=== PATIENT | male | born 1945 | race Caucasian/White ===

== ENCOUNTER 2017-10-25 03:22 | Inpatient (IN) ==
[2017-10-25] MEDS ORDERED: Ondansetron 4 MG/2 ML VIAL IVP PRN (05:30)
[2017-10-25] MEDS: *HR* Morphine 2 MG/ML SYRINGE IVP PRN ×3 (06:03→14:33)
[2017-10-25] MEDS: Gabapentin 300 MG CAPSULE PO SCH ×2 (08:06→21:24)
--- NOTE | 2017-10-25 08:45 | General Surg History&Physical ---
<Zora Ram - Last Filed: 10/25/17 09:44> Date of Encounter: 10/25/17 Time of Encounter: 08:00 Assessment and Plan (1) Abdominal pain Current Visit: Yes Status: Acute Possible acute cholecystitis. Patient is a transfer from [facility] for possible cholecystitis. CT abdomen /pelvis showed no acute abdominal process. WBC 13.5. Patient reports epigastric and RUQ pain. No nausea or vomiting. Abdominal exam demonstrated soft, tender epigastric and RUQ, no guarding or rebound. Appears distended but patient stated his abdomen is unchanged. afebrile, tachycardic, normotensive INR 2.6 The assessment and plan as outlined above was discussed with the patient who expressed understanding and agreement. All questions were answered. abdominal ultrasound ordered. May order HIDA scan depending on results of U/S. morphine for pain relief liquid diet serial abdominal exams IVF zofran Qualifiers: Abdominal location: right upper quadrant Qualified Code(s): R10.11 - Right upper quadrant pain (2) A-fib Current Visit: Yes Status: Acute Patient has a history of A. fib on anticoagulation with warfarin and rate control with Betapace. His financial brokers is Dr. Arteaga. Tachycardic HR 130s, hemodynamically stable INR 2.6, PT 28.3 Patient may possibly need cholecystectomy in future pending ultrasound results. Significant cardiac history hence consult to cardiology. Consulted cardiology. Recommendations appreciated. Warfarin stopped monitor INR continue Betapace Qualifiers: Atrial fibrillation type: chronic Qualified Code(s): I48.2 - Chronic atrial fibrillation History of Present Illness Chief complaint: epigastric and RUQ pain HPI: Mr. Aguilar is a 72 year old male with a past medical history of DM and A.fib on anticoagulation with warfarin presented to [facility] complaining of abdominal pain. He was then transferred to [facility] with concerns of cholecystitis. He reported that the pain began 11 PM while watching TV. It was sudden in onset and sharp. It radiates from epigastric to right upper quadrant. It is a constant dull pain. He tried to get a warm bath to help but nothing really the pain. He has never had this before and does not associate eating greasy foods with ever having pain. Earlier for dinner he had a [employer] big boy hamburger. He has no past surgical history. He denies fever, chills, nausea, vomiting, diarrhea, melanoma, chest pain, shortness of breath. He will occasionally have a glass of scotch. 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 His financial brokers is Dr. Arteaga. CT abdomen/pelvis and [facility] showed no acute abdominal process. Labs are [facility] showed white blood cell count of 13.5, PT 28.3 INR 2.6. Past Med Surg Social Fam HX - Past Medical History Medical history: atrial fibrillation, cardiomyopathy, diabetes, fibromyalgia, valvular heart disease Psychiatric history: no psych history - Past Surgical History Surgical History: no surgical history - Social History Smoking Status: Former smoker Smokeless Tobacco Status: No Alcohol use: none, occasionally Drug use: none Occupational status: employed Activity Level: Independent ambulation - Family History Mother Living Status: Hx Family Cancer: Yes (Lung cancer) Brother Hx Family Cancer: Yes (prostate) Medications and Allergies Gabapentin [Neurontin] 300 mg PO QAM 02/26/16 [History] Gabapentin [Neurontin] 600 mg PO HS 02/26/16 [History] Levothyroxine [Synthroid] 75 mcg PO DAILY 02/26/16 [History] Sotalol [Betapace] 160 mg PO Q12HR 02/26/16 [History] Tamsulosin [Flomax] 0.4 mg PO DAILY 02/26/16 [History] Warfarin [Coumadin] 11 mg PO DAILY 02/26/16 [History] metFORMIN [Glucophage] 500 mg PO BIDWM 02/26/16 [History] 3 Allergy/AdvReac Type Severity Reaction Status Date / Time diazepam AdvReac Nausea Verified 10/24/17 23:43 Review of Systems All systems PM: A 10-system review of systems was performed and is negative for pertinent findings except as documented above in the HPI. - Constitutional no chills, no fever(s), no headache(s) - Cardiovascular no chest pain, no diaphoresis - Respiratory no cough, no dyspnea, no wheezing - Gastrointestinal abdominal pain, no bloating, no diarrhea, no hematemesis, no melena, no nausea, no vomiting General Surgery Exam Initial Vital Signs Temp Pulse Resp BP Pulse Ox 97.9 F 111 14 133/86 90 10/25/17 05:16 10/25/17 05:16 10/25/17 05:16 10/25/17 05:16 10/25/17 05:16 - General physical appearance well developed, well nourished, no distress. negative: jaundice - Eyes normal ocular movement. negative: icteric - Respiratory normal expansion, normal respiratory effort, clear to auscultation - Cardiovascular Cardiovascular exam: Present: tachycardia, irregular rhythm - Abdomen Abdomen general surgery: Present: bowel sounds present, soft, tender. Absent: guarding, rebound Abdominal Tenderness: Present: epigastic, RUQ - Neurologic Present: CN 2-12 grossly intact, normal coordination - Psychiatric Psychiatric general surgery: Present: A&Ox3 Results - Labs All other labs normal. <Veronica Elena - Last Filed: 10/25/17 16:40> Date of Encounter: 10/25/17 Assessment and Plan (1) A-fib Current Visit: Yes Status: Chronic The assessment and plan as outlined above was discussed with the patient and/or family members who expressed understanding and agreement. All questions were answered. Qualifiers: Atrial fibrillation type: chronic Qualified Code(s): I48.2 - Chronic atrial fibrillation (2) Abdominal pain Current Visit: Yes Status: Acute The assessment and plan as outlined above was discussed with the patient and/or family members who expressed understanding and agreement. All questions were answered prn pain control Qualifiers: Abdominal location: right upper quadrant Qualified Code(s): R10.11 - Right upper quadrant pain (3) Chronic anticoagulation Current Visit: Yes Status: Chronic The assessment and plan as outlined above was discussed with the patient and/or family members who expressed understanding and agreement. All questions were answered. holding coumadin for surgery saturday (4) NICM (nonischemic cardiomyopathy) Current Visit: Yes Status: Chronic The assessment and plan as outlined above was discussed with the patient and/or family members who expressed understanding and agreement. All questions were answered. (5) Symptomatic cholelithiasis Current Visit: Yes Status: Acute The assessment and plan as outlined above was discussed with the patient and/or family members who expressed understanding and agreement. All questions were answered. discussed with patient that his symptoms, imaging and labs point to symptomatic cholelithiasis - will plan surgery when INR reversed, prefer to let trend down if able as is easier to reanticoagulate if no vitamin K given will plan laparoscopic cholecystectomy, possible cholangiograms, possible open, risks and benefits discussed with patient and he wishes to proceed. patient with symptomatic cholelithiasis, continue abx trend labs, elevated lft serial abdominal exams holding coumadin, monitor inr epcd, gi prophylaxis ambulate/OOB (6) Leukocytosis Current Visit: Yes Status: Acute The assessment and plan as outlined above was discussed with the patient and/or family members who expressed understanding and agreement. All questions were answered. continue abx, trend wbc Qualifiers: Leukocytosis type: unspecified Qualified Code(s): D72.829 - Elevated white blood cell count, unspecified History of Present Illness HPI: Mr. Aguilar is a 72 year old male who started having RUQ pain he states last night after eating cheeseburger and salad at [employer]. The pain was sharp and radiated around his back and up into his chest. He denies nausea or emesis. He denies diarrhea. He has never had this before. Denies fevers,chills or night sweats. He presented to outside hospital and they were unable to control his pain. Patient is on coumadin for Afib and INR is 2.7. WBC wnl as are lfts. Past Med Surg Social Fam HX - Past Medical History Source: patient Review of Systems All systems PM: reviewed and no additional remarkable complaints except as stated All systems PM: A 10-system review of systems was performed and is negative for pertinent findings except as documented above in the HPI. General Surgery Exam Initial Vital Signs Temp Pulse Resp BP Pulse Ox 97.9 F 111 14 133/86 90 10/25/17 05:16 10/25/17 05:16 10/25/17 05:16 10/25/17 05:16 10/25/17 05:16 - General physical appearance well developed, well nourished, moderate distress - Eyes PERRL, normal ocular movement - ENT normal mucosa, normocephalic - Neck trachea midline - Respiratory normal expansion, normal respiratory effort - Cardiovascular Cardiovascular exam: Present: irregular rhythm - Abdomen Abdomen general surgery: Present: soft, tender. Absent: distended, guarding, rebound Abdominal Tenderness: Present: RUQ - Integumentary Integumentary general surgery: Present: warm and dry, no abnormal pigmentation - Neurologic Present: CN 2-12 grossly intact - Musculoskeletal Present: normal posture - Psychiatric Psychiatric general surgery: Present: A&Ox3 Results - Labs 10/25/17 10:05 10/25/17 10:05 Abnormal lab results WBC 15.9 K/mcL (4.3-11.1) H 10/25/17 10:05 Neutrophils # 13.2 K/mcL (1.6-8.9) H 10/25/17 10:05 PT 29.5 Seconds (9.4-12.1) H 10/25/17 10:05 Glucose 131 mg/dL (70-105) H 10/25/17 10:05 Diabetes panel 10/25/17 Range/Units 10:05 Sodium 136 (136-145) mEq/L Potassium 4.5 (3.5-5.1) mEq/L Chloride 103 (98-107) mEq/L Carbon Dioxide 28 (23-29) mEq/L BUN 14 (8-23) mg/dL Creatinine 0.96 (0.70-1.30) mg/dL Glucose 131 H (70-105) mg/dL Calcium 8.9 (8.6-10.3) mg/dL AST 21 (13-39) Units/L ALT 17 (7-52) Units/L Alkaline Phosphatase 60 (34-104) Units/L Albumin 3.6 (3.5-5.7) g/dL Calcium panel 10/25/17 Range/Units 10:05 Calcium 8.9 (8.6-10.3) mg/dL Albumin 3.6 (3.5-5.7) g/dL Pituitary panel 10/25/17 Range/Units 10:05 Sodium 136 (136-145) mEq/L Potassium 4.5 (3.5-5.1) mEq/L Chloride 103 (98-107) mEq/L Carbon Dioxide 28 (23-29) mEq/L BUN 14 (8-23) mg/dL Creatinine 0.96 (0.70-1.30) mg/dL Glucose 131 H (70-105) mg/dL Calcium 8.9 (8.6-10.3) mg/dL Adrenal panel 10/25/17 Range/Units 10:05 Sodium 136 (136-145) mEq/L Potassium 4.5 (3.5-5.1) mEq/L Chloride 103 (98-107) mEq/L Carbon Dioxide 28 (23-29) mEq/L BUN 14 (8-23) mg/dL Creatinine 0.96 (0.70-1.30) mg/dL Glucose 131 H (70-105) mg/dL Calcium 8.9 (8.6-10.3) mg/dL Total Bilirubin 0.5 (0.3-1.0) mg/dL AST 21 (13-39) Units/L ALT 17 (7-52) Units/L Alkaline Phosphatase 60 (34-104) Units/L Albumin 3.6 (3.5-5.7) g/dL All other labs normal. - Imaging Additional studies: US gallbladder - cholelithiasis, no signs acute cholecystitis - Attending Attestation I examined this patient and my medical decision-making was reviewed with the Resident Physician. I agree with the documented findings, disposition and treatment plan as described except to the extent set forth below.
[2017-10-25] MEDS ORDERED: Naloxone 0.4 MG/ML INJ IVP PRN (09:02)
[2017-10-25] MEDS ORDERED: 0.9 % Sodium Chloride 1,000 ML IVC SCH (09:15)
[2017-10-25 10:27] LABS: Basophils % 0.2 %; Eosinophils % 0.2 %; Hematocrit 44.8 % (37.5-50.1); Hemoglobin 14.6 g/dL (12.9-16.9); INR 2.7; Immature Granulocytes % 0.4 % (0-4); Lymphocytes # 1.4 K/mcL (0.6-4.6); Mean Corpuscular HGB Conc 32.6 g/dL (31.6-35.5); Mean Corpuscular Hemoglobin 28.7 pg (28.0-33.3); Mean Platelet Volume 9.8 fL (9.4-12.4); Monocytes # 1.1 K/mcL (0.0-1.3); Monocytes % 7.1 %; Neutrophils # 13.2 K/mcL (1.6-8.9); Platelet Count 383 K/mcL (140-400); Prothrombin Time 29.5 Seconds (9.4-12.1); Red Blood Count 5.09 M/mcL (4.19-5.50); Red Cell Distribution Width 12.9 % (11.5-14.5); Segmented Neutrophils % 83.1 %
[2017-10-25 10:37] LABS: Alanine Aminotransferase 17 Units/L (7-52); Albumin 3.6 g/dL (3.5-5.7); Albumin/Globulin Ratio 1.2 (1.1-2.2); Alkaline Phosphatase 60 Units/L (34-104); Aspartate Amino Transferase 21 Units/L (13-39); BUN/Creatinine Ratio 15 (6-26); Bilirubin,Direct 0.1 mg/dL (0.0-0.2); Bilirubin,Indirect 0.4 mg/dL (0.0-1.2); Bilirubin,Total 0.5 mg/dL (0.3-1.0); Blood Urea Nitrogen 14 mg/dL (8-23); Calcium 8.9 mg/dL (8.6-10.3); Carbon Dioxide 28 mEq/L (23-29); Chloride 103 mEq/L (98-107); Globulin 2.9 g/dL (2.4-3.5); Glucose 131 mg/dL (70-105); Osmolality,Calculated 284 (280-300); Potassium 4.5 mEq/L (3.5-5.1); Sodium 136 mEq/L (136-145); Total Protein 6.5 g/dL (6.4-8.9); eGFR For African Americans > 60 (> 60); eGFR For Non-African Americans > 60 (> 60)
--- NOTE | 2017-10-25 14:08 | General Surg History&Physical ---
Date of Encounter: 10/25/17 Time of Encounter: 14:06 Assessment and Plan (1) Symptomatic cholelithiasis Current Visit: Yes Status: Acute The assessment and plan as outlined above was discussed with the patient and/or family members who expressed understanding and agreement. All questions were answered. CT of abd is unremarkable, but given pt's leukocytosis and positive abdominal exam, we will proceed with RUQ ultrasound which noted cholelithiasis, nonobstructing, and sludge. Plan: -consult cardiology for cardiovascular risk stratification, management of chronic atrial fibrillation, fluid status recommendations given NICM, and anticoagulation. -Consideration for possible surgical intervention pending recommendations above and correction of patient's INR to less than 1.7. -Supportive care and discomfort management scheduled Toradol times 3 doses, PRN hydromorphone, PRN oxycodone, PRN promethazine -Zosyn 3.375 Q8 hours IV -clear liquid diet -serial abdominal exams -IV fluids at KVO while on clear liquid diet, total fluid management per cardiology given cardiac history -Repeat am labs (2) Chronic atrial fibrillation Current Visit: Yes Status: Acute The assessment and plan as outlined above was discussed with the patient and/or family members who expressed understanding and agreement. All questions were answered. Continue home medications EKG and place on tele in the setting of sotalol use consult cardiology as above (3) Chronic anticoagulation Current Visit: Yes Status: Acute The assessment and plan as outlined above was discussed with the patient and/or family members who expressed understanding and agreement. All questions were answered. See above (4) Cough Current Visit: Yes Status: Acute The assessment and plan as outlined above was discussed with the patient and/or family members who expressed understanding and agreement. All questions were answered. Will obtain to view chest x-ray given leukocytosis, costs, and right upper quadrant pain to rule out community acquired pneumonia S/P influenza (5) NICM (nonischemic cardiomyopathy) Current Visit: Yes Status: Acute The assessment and plan as outlined above was discussed with the patient and/or family members who expressed understanding and agreement. All questions were answered. Reduce fluids to KVO Total fluid management per cardiology recommendations given NICM and a-ftrial fib history (6) Abdominal pain Current Visit: Yes Status: Acute The assessment and plan as outlined above was discussed with the patient and/or family members who expressed understanding and agreement. All questions were answered. See plan above Qualifiers: Abdominal location: right upper quadrant Qualified Code(s): R10.11 - Right upper quadrant pain History of Present Illness Chief complaint: RUQ pain HPI: PLEASE DISREGARD THE RESIDENT PHYSICIAN H&P THIS NOTE SHOULD BE CANCELLED. USE THIS H&P. Mr. Aguilar is a 72 year old male with a past medical history of T2DM, NICM, chronic afib s/p cardioversion x3 (on Chronic warfarin and sotalol)-followed by dr. Xie, idiopathic neuropathy, hypothyroid, hematuria. He has a past surgical history of tonsillectomy at and adenoidectomy in 1952, cystoscopy, cardiac, cardioversion times 3, and colonoscopy by Dr. Altman in 12/2006. He last saw Dr. Xie on 10/22/2017 at which time he had an EKG which noted PAF. Reportedly he started having issues with his heart racing after he took Tamiflu the previous week. He presented to [place] [facility] complaining of abdominal pain. He was then transferred to [facility] with concerns of cholecystitis despite normal appearance of GB on CT. He reported that the pain began 11 PM the previous night while watching TV. It was sudden in onset and sharp onset, radiates from midabdomen to right upper quadrant. It is a constant and dull pain. He tried to get a warm bath to help but nothing really the pain. He has never had this before and does not associate eating greasy foods with ever having pain. Earlier for dinner he had a [employer] big boy hamburger. He denies fever, chills, syncope , near syncope, nausea, vomiting, diarrhea, black, bloody, or tarry stool, chest pain, or worsening shortness of breath. He reports chest flattering that is unchanged, right upper quadrant pain, and nonproductive cough. He occasionally have a glass of scotch. 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 Past Med Surg Social Fam HX - Past Medical History Source: patient, old records reviewed Medical history: atrial fibrillation, cardiomyopathy, diabetes, fibromyalgia, valvular heart disease Psychiatric history: no psych history - Past Surgical History Surgical History: other (Cardioversions x3; tonsilectomy;; cystosomy) - Social History Smoking Status: Former smoker Smokeless Tobacco Status: No Alcohol use: none, occasionally Drug use: none - Family History Mother Living Status: Hx Family Cancer: Yes (Lung cancer) Brother Hx Family Cancer: Yes (prostate) Medications and Allergies Gabapentin [Neurontin] 300 mg PO QAM 02/26/16 [History] Gabapentin [Neurontin] 600 mg PO HS 02/26/16 [History] Levothyroxine [Synthroid] 75 mcg PO DAILY 02/26/16 [History] Sotalol [Betapace] 160 mg PO Q12HR 02/26/16 [History] Tamsulosin [Flomax] 0.4 mg PO DAILY 02/26/16 [History] Warfarin [Coumadin] 11 mg PO DAILY 02/26/16 [History] metFORMIN [Glucophage] 500 mg PO BIDWM 02/26/16 [History] 3 Allergy/AdvReac Type Severity Reaction Status Date / Time diazepam AdvReac Nausea Verified 10/24/17 23:43 Review of Systems All systems PM: reviewed and no additional remarkable complaints except as stated All systems PM: A 10-system review of systems was performed and is negative for pertinent findings except as documented above in the HPI. General Surgery Exam Initial Vital Signs Temp Pulse Resp BP Pulse Ox 97.9 F 111 14 133/86 90 10/25/17 05:16 10/25/17 05:16 10/25/17 05:16 10/25/17 05:16 10/25/17 05:16 - General physical appearance moderate distress, moderate pain, other (Ill appearing, has cool washcloth over face) - Eyes normal ocular movement - ENT normal nares, normal mucosa, atraumatic, normocephalic - Neck trachea midline, no venous distension - Respiratory other (Course breath sounds throughout. Decreased bilateral.) - Cardiovascular Cardiovascular exam: Present: irregular rhythm, murmurs - Abdomen Abdomen general surgery: Present: bowel sounds present, soft, tender Abdominal Tenderness: Present: RUQ Hernia: Present: none - Integumentary Integumentary general surgery: Present: warm and dry, no abnormal pigmentation - Neurologic Present: CN 2-12 grossly intact, normal coordination, normal sensation - Musculoskeletal Present: normal gait, normal posture - Psychiatric Psychiatric general surgery: Present: A&Ox3, appropriate, oriented to person, oriented to place, oriented to time, speech is normal, memory intact Results - Labs 10/25/17 10:05 10/25/17 10:05 Abnormal lab results WBC 15.9 K/mcL (4.3-11.1) H 10/25/17 10:05 Neutrophils # 13.2 K/mcL (1.6-8.9) H 10/25/17 10:05 PT 29.5 Seconds (9.4-12.1) H 10/25/17 10:05 Glucose 131 mg/dL (70-105) H 10/25/17 10:05 Diabetes panel 10/25/17 Range/Units 10:05 Sodium 136 (136-145) mEq/L Potassium 4.5 (3.5-5.1) mEq/L Chloride 103 (98-107) mEq/L Carbon Dioxide 28 (23-29) mEq/L BUN 14 (8-23) mg/dL Creatinine 0.96 (0.70-1.30) mg/dL Glucose 131 H (70-105) mg/dL Calcium 8.9 (8.6-10.3) mg/dL AST 21 (13-39) Units/L ALT 17 (7-52) Units/L Alkaline Phosphatase 60 (34-104) Units/L Albumin 3.6 (3.5-5.7) g/dL Calcium panel 10/25/17 Range/Units 10:05 Calcium 8.9 (8.6-10.3) mg/dL Albumin 3.6 (3.5-5.7) g/dL Pituitary panel 10/25/17 Range/Units 10:05 Sodium 136 (136-145) mEq/L Potassium 4.5 (3.5-5.1) mEq/L Chloride 103 (98-107) mEq/L Carbon Dioxide 28 (23-29) mEq/L BUN 14 (8-23) mg/dL Creatinine 0.96 (0.70-1.30) mg/dL Glucose 131 H (70-105) mg/dL Calcium 8.9 (8.6-10.3) mg/dL Adrenal panel 10/25/17 Range/Units 10:05 Sodium 136 (136-145) mEq/L Potassium 4.5 (3.5-5.1) mEq/L Chloride 103 (98-107) mEq/L Carbon Dioxide 28 (23-29) mEq/L BUN 14 (8-23) mg/dL Creatinine 0.96 (0.70-1.30) mg/dL Glucose 131 H (70-105) mg/dL Calcium 8.9 (8.6-10.3) mg/dL Total Bilirubin 0.5 (0.3-1.0) mg/dL AST 21 (13-39) Units/L ALT 17 (7-52) Units/L Alkaline Phosphatase 60 (34-104) Units/L Albumin 3.6 (3.5-5.7) g/dL All other labs normal. - Imaging CT scan - abdomen: report reviewed CT scan - pelvis: report reviewed Additional studies: Gallbladder Ultrasound 10/25/17 12:00 IMPRESSION: Gallstones and possible sludge, without evidence of acute cholecystitis. D/ / Solomon Rodriguez MD / Solomon Rodriguez MD Interpreting Provider: Solomon Rodriguez MD
[2017-10-25] MEDS ORDERED: *HR* OxyCODONE/APAP 7.5/325 TABLET PO PRN (14:32)
[2017-10-25] MEDS ORDERED: *HR* Promethazine 25 MG/ML VIAL IVP PRN (14:42)
[2017-10-25 15:01] LABS: Amylase 38 Units/L (29-103); Lipase 14 Units/L (11-82)
[2017-10-25] MEDS ORDERED: Dextrose Gel 15 GM/37.5 ML TUBE PO PRN ×2 (15:34)
[2017-10-25] MEDS ORDERED: *HR* Dextrose 50 % in Water (Syg) 50 ML SYRINGE IVP PRN (15:34)
[2017-10-25] MEDS ORDERED: D5% in Water 1,000 ML IVC PRN (15:34)
--- NOTE | 2017-10-25 15:46 | Cardiology Consult Note ---
Date of Encounter: 10/25/17 Time of Encounter: 15:44 Assessment and Plan (1) Preop cardiovascular exam Current Visit: Yes Status: Acute Low to moderate risk for cardiac events with GB surgery. Can come off coumadin with no bridging for surgery if needed. Restart coumadin when okay and safe. Afib HR > [address] patient at higher risk of cardiac events. Close hemodynamic monitoring during surgery Discussion w patient/family: The assessment and plan as outlined above was discussed with the patient and/or family members who expressed understanding and agreement. All questions were answered. Thank you for involving us in the care of your patient. Please call with any questions. History of Present Illness Consult date: 10/25/17 Consult reason: Cardiac Clearance Chief complaint: RUQ pain History of present illness: Mr. Aguilar is a 72 year old male with known NICM now with an EF 55% and no major valvular abnormalities. Chronic Afib on AC for stroke risk reduction. He denies any CP, SOB, Orthopnea, PND or syncope. Fairly active around the house without any limitations to ADL. Past Med Surg Social Fam HX - Past Medical History Medical history: atrial fibrillation, cardiomyopathy, diabetes, fibromyalgia, valvular heart disease Psychiatric history: no psych history - Past Surgical History Surgical History: other (Cardioversions x3; tonsilectomy;; cystosomy) - Social History Smoking Status: Former smoker Smokeless Tobacco Status: No Alcohol use: none, occasionally Drug use: none - Family History Mother Living Status: Hx Family Cancer: Yes (Lung cancer) Brother Hx Family Cancer: Yes (prostate) Medications and Allergies Gabapentin [Neurontin] 300 mg PO QAM 02/26/16 [History] Gabapentin [Neurontin] 600 mg PO HS 02/26/16 [History] Levothyroxine [Synthroid] 75 mcg PO DAILY 02/26/16 [History] Sotalol [Betapace] 160 mg PO Q12HR 02/26/16 [History] Tamsulosin [Flomax] 0.4 mg PO DAILY 02/26/16 [History] Warfarin [Coumadin] 11 mg PO DAILY 02/26/16 [History] metFORMIN [Glucophage] 500 mg PO BIDWM 02/26/16 [History] 3 Allergy/AdvReac Type Severity Reaction Status Date / Time diazepam AdvReac Nausea Verified 01/11/18 23:43 All Systems Review: A 10-system review of systems was performed and is negative for pertinent findings except as documented above in the HPI. Physical Examination Vital Signs, Last 4 Hours Temp Pulse Resp BP Pulse Ox 10/25/17 14:56 97.4 F L 111 20 104/70 96 General: Conversant, No Apparent Distress HEENT: Atraumatic, Normocephaly, Mucus Membranes Moist Neck: No JVD, Normal carotid pulses Cardiac: Reg Rate and Rhythm, Normal S1 and S2, No Murmur Lungs: Normal Breath Sounds, No Wheeze, Rales, Rhonchi Neuro: Alert and responsive, No focal deficits noted Abdomen: Soft, Non-Tender Skin: No rashes noted on visualized skin Musculoskeletal: No Chest Wall Tenderness Extremities: No Clubbing, No Cyanosis, No Edema, Normal Pulses Results 10/25/17 10:05 10/25/17 10:05 Lab Results 10/25/17 10/25/17 10/25/17 10:05 10:05 10:05 WBC 15.9 H Hgb 14.6 Hct 44.8 Plt Count 383 INR 2.7 Sodium 136 Potassium 4.5 Chloride 103 Carbon Dioxide 28 BUN 14 Creatinine 0.96 Glucose 131 H Calcium 8.9 Total Bilirubin 0.5 AST 21 ALT 17 Alkaline Phosphatase 60 Amylase 38 Lipase 14 Consult Discharge Plan - Plan Referrals: Merced Rodriguez MD [Primary Care Provider] -
[2017-10-25] MEDS: Insulin LISPRO 300 UNITS/3 ML VIAL SQ SCH ×2 (17:26→21:23)
[2017-10-25] MEDS: Ketorolac 15 MG/ML VIAL IVP SCH (17:31)
[2017-10-25] MEDS: 0.9 % Sodium Chloride 1,000 ML IVC SCH (17:39)
[2017-10-25] MEDS: Piperacillin/Tazobactam 3.375 GM/200 ML BAG IVPB SCH (17:40)
[2017-10-26] MEDS: Ketorolac 15 MG/ML VIAL IVP SCH ×2 (00:28→05:50)
[2017-10-26] MEDS: Piperacillin/Tazobactam 3.375 GM/200 ML BAG IVPB SCH ×3 (00:28→17:27)
[2017-10-26 05:18] LABS: Basophils % 0.3 %; Eosinophils % 0.1 %; Hematocrit 39.6 % (37.5-50.1); Immature Granulocytes % 0.6 % (0-4); Lymphocytes # 1.3 K/mcL (0.6-4.6); Lymphocytes % 8.2 %; Mean Corpuscular HGB Conc 32.3 g/dL (31.6-35.5); Mean Corpuscular Hemoglobin 28.6 pg (28.0-33.3); Mean Corpuscular Volume 88.4 fL (83.0-100.0); Mean Platelet Volume 9.9 fL (9.4-12.4); Monocytes # 1.3 K/mcL (0.0-1.3); Monocytes % 8.4 %; Platelet Count 277 K/mcL (140-400); Red Blood Count 4.48 M/mcL (4.19-5.50); Red Cell Distribution Width 13.2 % (11.5-14.5); Segmented Neutrophils % 82.4 %
[2017-10-26 05:19] LABS: Hemoglobin 12.8 g/dL (12.9-16.9)
[2017-10-26 05:31] LABS: INR 2.7; Prothrombin Time 30.1 Seconds (9.4-12.1)
[2017-10-26 05:43] LABS: Alanine Aminotransferase 26 Units/L (7-52); Albumin 3.2 g/dL (3.5-5.7); Albumin/Globulin Ratio 1.3 (1.1-2.2); Alkaline Phosphatase 54 Units/L (34-104); Aspartate Amino Transferase 29 Units/L (13-39); BUN/Creatinine Ratio 16 (6-26); Bilirubin,Direct 0.5 mg/dL (0.0-0.2); Bilirubin,Indirect 0.9 mg/dL (0.0-1.2); Bilirubin,Total 1.4 mg/dL (0.3-1.0); Blood Urea Nitrogen 20 mg/dL (8-23); Calcium 8.1 mg/dL (8.6-10.3); Carbon Dioxide 29 mEq/L (23-29); Chloride 103 mEq/L (98-107); Globulin 2.5 g/dL (2.4-3.5); Glucose 120 mg/dL (70-105); Osmolality,Calculated 284 (280-300); Potassium 4.6 mEq/L (3.5-5.1); Sodium 135 mEq/L (136-145); Total Protein 5.7 g/dL (6.4-8.9); eGFR For African Americans > 60 (> 60); eGFR For Non-African Americans 56 (> 60)
[2017-10-26] MEDS: Insulin LISPRO 300 UNITS/3 ML VIAL SQ SCH ×4 (10:52→22:43)
[2017-10-26] MEDS: Gabapentin 300 MG CAPSULE PO SCH ×2 (10:57→22:35)
--- NOTE | 2017-10-26 11:47 | General Surgery Progress Note ---
<Jason Montalvo - Last Filed: 10/26/17 11:44> Date of Encounter: 10/26/17 Time of Encounter: 11:44 - Assessment and Plan (1) Symptomatic cholelithiasis Current Visit: Yes Status: Acute CT of abd is unremarkable, but given pt's leukocytosis and positive abdominal exam, we will proceed with RUQ ultrasound which noted cholelithiasis, nonobstructing, and sludge. Patient has clinically improved and is currently hemodynamically stable. Plan surgery on Saturday w/ Dr. morales. per cardiology, patient is low to moderate risk for cardiace event w/ GB surgery. - will need to get on surgery schedule on Saturday - patient receiving Vit K to reverse INR, if still elevated tomorrow and saturday consider FFP - morning labs, and coag - ct pain management - serial abd exam - ct abx (zosyn ) - closely monitor HR, goal <100 - continue clear liquids, NPO at midnight saturday night for surgery Saturday (2) Abdominal pain Current Visit: Yes Status: Acute currently stable, will continue to monitor closely Qualifiers: Abdominal location: right upper quadrant Qualified Code(s): R10.11 - Right upper quadrant pain (3) Chronic atrial fibrillation Current Visit: Yes Status: Acute currently Hr<100, per management of cards (4) Chronic anticoagulation Current Visit: Yes Status: Chronic see above (5) Cough Current Visit: Yes Status: Acute CXR 1. Mildly enlarged cardiac silhouette with prominence of the pulmonary vasculature. 2. Small left pleural effusion. - will continue to evaluate pulmonary functionality on exams (6) NICM (nonischemic cardiomyopathy) Current Visit: Yes Status: Chronic per management of cards Subjective Patient reports: feels better, pain is less, tolerating liquids well, flatus, no bowel movement, afebrile Objective Vital Signs - Last 8 Hours Temp Pulse Resp BP Pulse Ox 10/26/17 07:44 98.9 F 113 16 124/73 91 10/26/17 05:08 97.4 F L 66 15 99/63 95 Intake and Output 10/25/17 10/26/17 10/26/17 23:59 07:59 15:59 Intake Total 620 / 620 200 / 200 300 / 300 Output Total 100 / 100 125 / 125 Balance 520 / 520 75 / 75 300 / 300 Intake: IV Fluids 200 / 200 200 / 200 Zosyn Premix 3.375 GM/200 ML 3. 200 / 200 200 / 200 375 gm In 200 ml @ 50 mls/hr IVPB Q8HR [facility] Rx#:[id number] Oral 420 / 420 0 / 0 300 / 300 Output: Urine 100 / 100 125 / 125 Other: Weight 96 kg Blood Glucose* 117 123 Patient Weight 10/26/17 23:59 Weight 96 kg - General physical appearance well developed, well nourished, no distress, no pain - ENT no hearing loss, no congestion - Respiratory normal expansion, normal respiratory effort, clear to percussion, clear to auscultation - Cardiovascular Cardiovascular exam: Present: RRR - Abdomen Abdomen: Present: bowel sounds present, soft, non tender Additional Comments: negative howell's - Integumentary no rash, no growths, no abnormal pigmentation - Neurologic normal sensation - Psychiatric oriented to time, oriented to person, oriented to place, speech is normal, memory intact - Labs 10/26/17 04:56 10/26/17 04:56 Diabetes panel 10/25/17 10/26/17 Range/Units 10:05 04:56 Sodium 136 135 L (136-145) mEq/L Potassium 4.5 4.6 (3.5-5.1) mEq/L Chloride 103 103 (98-107) mEq/L Carbon Dioxide 28 29 (23-29) mEq/L BUN 14 20 (8-23) mg/dL Creatinine 0.96 1.27 (0.70-1.30) mg/dL Glucose 131 H 120 H (70-105) mg/dL Calcium 8.9 8.1 L (8.6-10.3) mg/dL AST 21 29 (13-39) Units/L ALT 17 26 (7-52) Units/L Alkaline Phosphatase 60 54 (34-104) Units/L Albumin 3.6 3.2 L (3.5-5.7) g/dL Calcium panel 10/25/17 10/26/17 Range/Units 10:05 04:56 Calcium 8.9 8.1 L (8.6-10.3) mg/dL Albumin 3.6 3.2 L (3.5-5.7) g/dL Pituitary panel 10/25/17 10/26/17 Range/Units 10:05 04:56 Sodium 136 135 L (136-145) mEq/L Potassium 4.5 4.6 (3.5-5.1) mEq/L Chloride 103 103 (98-107) mEq/L Carbon Dioxide 28 29 (23-29) mEq/L BUN 14 20 (8-23) mg/dL Creatinine 0.96 1.27 (0.70-1.30) mg/dL Glucose 131 H 120 H (70-105) mg/dL Calcium 8.9 8.1 L (8.6-10.3) mg/dL Adrenal panel 10/25/17 10/26/17 Range/Units 10:05 04:56 Sodium 136 135 L (136-145) mEq/L Potassium 4.5 4.6 (3.5-5.1) mEq/L Chloride 103 103 (98-107) mEq/L Carbon Dioxide 28 29 (23-29) mEq/L BUN 14 20 (8-23) mg/dL Creatinine 0.96 1.27 (0.70-1.30) mg/dL Glucose 131 H 120 H (70-105) mg/dL Calcium 8.9 8.1 L (8.6-10.3) mg/dL Total Bilirubin 0.5 1.4 H (0.3-1.0) mg/dL AST 21 29 (13-39) Units/L ALT 17 26 (7-52) Units/L Alkaline Phosphatase 60 54 (34-104) Units/L Albumin 3.6 3.2 L (3.5-5.7) g/dL Consult Discharge Plan - Plan Referrals: Merced Rodriguez MD [Primary Care Provider] - <Yonis Gavin - Last Filed: 10/27/17 09:33> Date of Encounter: 10/27/17 Objective Vital Signs - Last 8 Hours Temp Pulse Resp BP Pulse Ox 10/27/17 07:06 97.7 F 112 14 114/77 91 10/27/17 03:52 98.7 F 100 15 100/66 97 Intake and Output 10/26/17 10/27/17 10/27/17 23:59 07:59 15:59 Intake Total 1000 / 1000 400 / 400 Output Total 850 / 850 550 / 550 Balance 150 / 150 -150 / -150 Intake: IV Fluids 1000 / 1000 400 / 400 0.9 % Sodium Chloride 1,000 ML 1000 / 1000 @ 35 mls/hr IVC .Q24H [facility] Rx#: [id number] Zosyn Premix 3.375 GM/200 ML 3. 400 / 400 375 gm In 200 ml @ 50 mls/hr IVPB Q8HR [facility] Rx#:[id number] Oral 0 / 0 0 / 0 Output: Urine 850 / 850 550 / 550 Other: # Bowel Movements 1 Weight 93.1 kg Blood Glucose* 148 134 Patient Weight 10/27/17 23:59 Weight 93.1 kg - Labs 10/27/17 04:53 10/27/17 04:53 Diabetes panel 10/27/17 Range/Units 04:53 Sodium 136 (136-145) mEq/L Potassium 3.9 (3.5-5.1) mEq/L Chloride 106 (98-107) mEq/L Carbon Dioxide 24 (23-29) mEq/L BUN 19 (8-23) mg/dL Creatinine 0.99 (0.70-1.30) mg/dL Glucose 141 H (70-105) mg/dL Calcium 8.1 L (8.6-10.3) mg/dL AST 23 (13-39) Units/L ALT 24 (7-52) Units/L Alkaline Phosphatase 63 (34-104) Units/L Albumin 3.1 L (3.5-5.7) g/dL Calcium panel 10/27/17 Range/Units 04:53 Calcium 8.1 L (8.6-10.3) mg/dL Albumin 3.1 L (3.5-5.7) g/dL Pituitary panel 10/27/17 Range/Units 04:53 Sodium 136 (136-145) mEq/L Potassium 3.9 (3.5-5.1) mEq/L Chloride 106 (98-107) mEq/L Carbon Dioxide 24 (23-29) mEq/L BUN 19 (8-23) mg/dL Creatinine 0.99 (0.70-1.30) mg/dL Glucose 141 H (70-105) mg/dL Calcium 8.1 L (8.6-10.3) mg/dL Adrenal panel 10/27/17 Range/Units 04:53 Sodium 136 (136-145) mEq/L Potassium 3.9 (3.5-5.1) mEq/L Chloride 106 (98-107) mEq/L Carbon Dioxide 24 (23-29) mEq/L BUN 19 (8-23) mg/dL Creatinine 0.99 (0.70-1.30) mg/dL Glucose 141 H (70-105) mg/dL Calcium 8.1 L (8.6-10.3) mg/dL Total Bilirubin 1.7 H (0.3-1.0) mg/dL AST 23 (13-39) Units/L ALT 24 (7-52) Units/L Alkaline Phosphatase 63 (34-104) Units/L Albumin 3.1 L (3.5-5.7) g/dL - Attending Attestation patient seen and examined. i have reviewed all pertinent imaging, labs, and notes, including this one. I agree with above assessment and plan
[2017-10-26] MEDS: Acetaminophen 325 MG TABLET PO PRN ×2 (13:40→22:34)
[2017-10-26] MEDS: 0.9 % Sodium Chloride 1,000 ML IVC SCH (17:23)
[2017-10-26] MEDS: *HR* HYDROmorphone 2 MG/ML SYRINGE IVP PRN (22:35)
[2017-10-27] MEDS: Piperacillin/Tazobactam 3.375 GM/200 ML BAG IVPB SCH ×4 (01:19→23:52)
[2017-10-27 05:23] LABS: Basophils % 0.1 %; Eosinophils % 0.1 %; Hematocrit 39.5 % (37.5-50.1); Hemoglobin 12.9 g/dL (12.9-16.9); Immature Granulocytes % 0.5 % (0-4); Lymphocytes % 5.9 %; Mean Corpuscular HGB Conc 32.7 g/dL (31.6-35.5); Mean Corpuscular Hemoglobin 28.7 pg (28.0-33.3); Mean Corpuscular Volume 87.8 fL (83.0-100.0); Mean Platelet Volume 10.1 fL (9.4-12.4); Monocytes # 1.2 K/mcL (0.0-1.3); Monocytes % 6.9 %; Neutrophils # 15.2 K/mcL (1.6-8.9); Platelet Count 258 K/mcL (140-400); Red Cell Distribution Width 13.2 % (11.5-14.5); Segmented Neutrophils % 86.5 %
[2017-10-27 05:34] LABS: Prothrombin Time 22.1 Seconds (9.4-12.1)
[2017-10-27 05:44] LABS: Alanine Aminotransferase 24 Units/L (7-52); Albumin 3.1 g/dL (3.5-5.7); Albumin/Globulin Ratio 1.2 (1.1-2.2); Alkaline Phosphatase 63 Units/L (34-104); Aspartate Amino Transferase 23 Units/L (13-39); BUN/Creatinine Ratio 19 (6-26); Bilirubin,Direct 0.6 mg/dL (0.0-0.2); Bilirubin,Indirect 1.1 mg/dL (0.0-1.2); Bilirubin,Total 1.7 mg/dL (0.3-1.0); Blood Urea Nitrogen 19 mg/dL (8-23); Calcium 8.1 mg/dL (8.6-10.3); Carbon Dioxide 24 mEq/L (23-29); Chloride 106 mEq/L (98-107); Globulin 2.6 g/dL (2.4-3.5); Glucose 141 mg/dL (70-105); Osmolality,Calculated 287 (280-300); Potassium 3.9 mEq/L (3.5-5.1); Sodium 136 mEq/L (136-145); Total Protein 5.7 g/dL (6.4-8.9); eGFR For African Americans > 60 (> 60); eGFR For Non-African Americans > 60 (> 60)
[2017-10-27] MEDS: Insulin LISPRO 300 UNITS/3 ML VIAL SQ SCH ×4 (07:48→21:01)
[2017-10-27] MEDS: Gabapentin 300 MG CAPSULE PO SCH ×2 (08:57→21:02)
[2017-10-27] MEDS: *HR* HYDROmorphone 2 MG/ML SYRINGE IVP PRN ×4 (08:57→21:03)
--- NOTE | 2017-10-27 13:03 | General Surgery Progress Note ---
<Daniella Javier - Last Filed: 10/27/17 16:57> Date of Encounter: 10/27/17 Time of Encounter: 10:35 - Assessment and Plan (1) Symptomatic cholelithiasis Current Visit: Yes Status: Acute RUQ ultrasound 10/25/17--showed cholelithiasis and sludge; without evidence for acute cholecystitis. Plan surgery on Saturday w/ Dr. Elena. Per cardiology, patient is low to moderate risk for cardiac event with GB surgery. - Proceed with plan for surgery with Dr. Elena, anticipating surgery within next 24 to 48 hours - INR improved since yesterday, INR 2.0 today - continue morning labs and coags - continue pain management - serial abd exam - Continue Zosyn (day 3) - continue clear liquids for now, make NPO at midnight in anticipation of surgery (2) Abdominal pain Current Visit: Yes Status: Acute Qualifiers: Abdominal location: right upper quadrant Qualified Code(s): R10.11 - Right upper quadrant pain (3) Chronic atrial fibrillation Current Visit: Yes Status: Acute - managment per cardiology, on Sotalol 80 Q12H (4) Chronic anticoagulation Current Visit: Yes Status: Chronic INR of 2.0 today. Per cardiology note, patient can be off coumadin (with no bridging) for surgery. (5) NICM (nonischemic cardiomyopathy) Current Visit: Yes Status: Chronic - management as per cardiology Subjective Patient reports: no new complaints, still having pain, pain is less Objective Vital Signs - Last 8 Hours Temp Pulse Resp BP Pulse Ox 10/27/17 10:30 98.1 F 130 14 129/80 92 10/27/17 07:06 97.7 F 112 14 114/77 91 Intake and Output 10/26/17 10/27/17 10/27/17 23:59 07:59 15:59 Intake Total 1000 / 1000 400 / 400 440 / 440 Output Total 850 / 850 550 / 550 125 / 125 Balance 150 / 150 -150 / -150 315 / 315 Intake: IV Fluids 1000 / 1000 400 / 400 440 / 440 0.9 % Sodium Chloride 1,000 ML 1000 / 1000 240 / 240 @ 35 mls/hr IVC .Q24H [facility] Rx#: [id number] Zosyn Premix 3.375 GM/200 ML 3. 400 / 400 200 / 200 375 gm In 200 ml @ 50 mls/hr IVPB Q8HR [facility] Rx#:[id number] Oral 0 / 0 0 / 0 0 / 0 Output: Urine 850 / 850 550 / 550 125 / 125 Other: Meal Breakfast Percent of Meal Consumed 0% # Bowel Movements 1 Weight 93.1 kg Blood Glucose* 148 134 121 Patient Weight 10/27/17 23:59 Weight 93.1 kg - General physical appearance well developed, well nourished, no distress - Respiratory normal expansion, normal respiratory effort, clear to auscultation - Cardiovascular Cardiovascular exam: Present: tachycardia (HR 130), irregular rhythm - Abdomen Abdomen: Present: bowel sounds present, soft Abdominal Tenderness: RUQ - Neurologic CN 2-12 grossly intact - Psychiatric oriented to time, oriented to person, speech is normal - Labs 10/27/17 04:53 10/27/17 04:53 Diabetes panel 10/27/17 Range/Units 04:53 Sodium 136 (136-145) mEq/L Potassium 3.9 (3.5-5.1) mEq/L Chloride 106 (98-107) mEq/L Carbon Dioxide 24 (23-29) mEq/L BUN 19 (8-23) mg/dL Creatinine 0.99 (0.70-1.30) mg/dL Glucose 141 H (70-105) mg/dL Calcium 8.1 L (8.6-10.3) mg/dL AST 23 (13-39) Units/L ALT 24 (7-52) Units/L Alkaline Phosphatase 63 (34-104) Units/L Albumin 3.1 L (3.5-5.7) g/dL Calcium panel 10/27/17 Range/Units 04:53 Calcium 8.1 L (8.6-10.3) mg/dL Albumin 3.1 L (3.5-5.7) g/dL Pituitary panel 10/27/17 Range/Units 04:53 Sodium 136 (136-145) mEq/L Potassium 3.9 (3.5-5.1) mEq/L Chloride 106 (98-107) mEq/L Carbon Dioxide 24 (23-29) mEq/L BUN 19 (8-23) mg/dL Creatinine 0.99 (0.70-1.30) mg/dL Glucose 141 H (70-105) mg/dL Calcium 8.1 L (8.6-10.3) mg/dL Adrenal panel 10/27/17 Range/Units 04:53 Sodium 136 (136-145) mEq/L Potassium 3.9 (3.5-5.1) mEq/L Chloride 106 (98-107) mEq/L Carbon Dioxide 24 (23-29) mEq/L BUN 19 (8-23) mg/dL Creatinine 0.99 (0.70-1.30) mg/dL Glucose 141 H (70-105) mg/dL Calcium 8.1 L (8.6-10.3) mg/dL Total Bilirubin 1.7 H (0.3-1.0) mg/dL AST 23 (13-39) Units/L ALT 24 (7-52) Units/L Alkaline Phosphatase 63 (34-104) Units/L Albumin 3.1 L (3.5-5.7) g/dL Consult Discharge Plan - Plan Referrals: Merced Rodriguez MD [Primary Care Provider] - <Yonis Gavin - Last Filed: 10/27/17 18:16> Date of Encounter: 10/27/17 Objective Vital Signs - Last 8 Hours Temp Pulse Resp BP Pulse Ox 10/27/17 16:54 98.5 F 118 14 136/92 93 10/27/17 10:30 98.1 F 130 14 129/80 92 Intake and Output 10/27/17 10/27/17 10/27/17 07:59 15:59 23:59 Intake Total 400 / 400 440 / 440 288 / 288 Output Total 550 / 550 225 / 225 200 / 200 Balance -150 / -150 215 / 215 88 / 88 Intake: IV Fluids 400 / 400 440 / 440 288 / 288 0.9 % Sodium Chloride 1,000 ML 240 / 240 288 / 288 @ 35 mls/hr IVC .Q24H [facility] Rx#: [id number] Zosyn Premix 3.375 GM/200 ML 3. 400 / 400 200 / 200 375 gm In 200 ml @ 50 mls/hr IVPB Q8HR [facility] Rx#:[id number] Oral 0 / 0 0 / 0 Output: Urine 550 / 550 225 / 225 200 / 200 Other: Meal Breakfast Percent of Meal Consumed 0% Weight 93.1 kg Blood Glucose* 134 121 112 Patient Weight 10/27/17 23:59 Weight 93.1 kg - Labs 10/27/17 04:53 10/27/17 04:53 Diabetes panel 10/27/17 Range/Units 04:53 Sodium 136 (136-145) mEq/L Potassium 3.9 (3.5-5.1) mEq/L Chloride 106 (98-107) mEq/L Carbon Dioxide 24 (23-29) mEq/L BUN 19 (8-23) mg/dL Creatinine 0.99 (0.70-1.30) mg/dL Glucose 141 H (70-105) mg/dL Calcium 8.1 L (8.6-10.3) mg/dL AST 23 (13-39) Units/L ALT 24 (7-52) Units/L Alkaline Phosphatase 63 (34-104) Units/L Albumin 3.1 L (3.5-5.7) g/dL Calcium panel 10/27/17 Range/Units 04:53 Calcium 8.1 L (8.6-10.3) mg/dL Albumin 3.1 L (3.5-5.7) g/dL Pituitary panel 10/27/17 Range/Units 04:53 Sodium 136 (136-145) mEq/L Potassium 3.9 (3.5-5.1) mEq/L Chloride 106 (98-107) mEq/L Carbon Dioxide 24 (23-29) mEq/L BUN 19 (8-23) mg/dL Creatinine 0.99 (0.70-1.30) mg/dL Glucose 141 H (70-105) mg/dL Calcium 8.1 L (8.6-10.3) mg/dL Adrenal panel 10/27/17 Range/Units 04:53 Sodium 136 (136-145) mEq/L Potassium 3.9 (3.5-5.1) mEq/L Chloride 106 (98-107) mEq/L Carbon Dioxide 24 (23-29) mEq/L BUN 19 (8-23) mg/dL Creatinine 0.99 (0.70-1.30) mg/dL Glucose 141 H (70-105) mg/dL Calcium 8.1 L (8.6-10.3) mg/dL Total Bilirubin 1.7 H (0.3-1.0) mg/dL AST 23 (13-39) Units/L ALT 24 (7-52) Units/L Alkaline Phosphatase 63 (34-104) Units/L Albumin 3.1 L (3.5-5.7) g/dL - Attending Attestation patient seen and examined. all pertinent labs, imaging, notes, including this one, were reviewed by me. I agree with the above assessment and plan and wish to add the following... 72M with acute cholecystitis; plan for OR in AM; repeat INR in AM;
[2017-10-27] MEDS: 0.9 % Sodium Chloride 1,000 ML IVC SCH (16:39)
[2017-10-27] MEDS: Acetaminophen 325 MG TABLET PO PRN (21:03)
[2017-10-28 05:32] LABS: Basophils % 0.1 %; Eosinophils % 0.1 %; Hematocrit 37.4 % (37.5-50.1); Hemoglobin 12.3 g/dL (12.9-16.9); Immature Granulocytes % 0.4 % (0-4); Lymphocytes # 0.9 K/mcL (0.6-4.6); Lymphocytes % 5.9 %; Mean Corpuscular HGB Conc 32.9 g/dL (31.6-35.5); Mean Corpuscular Hemoglobin 28.9 pg (28.0-33.3); Mean Platelet Volume 9.9 fL (9.4-12.4); Monocytes % 6.5 %; Neutrophils # 13.9 K/mcL (1.6-8.9); Platelet Count 274 K/mcL (140-400); Red Blood Count 4.25 M/mcL (4.19-5.50); Red Cell Distribution Width 13.2 % (11.5-14.5)
[2017-10-28 05:37] LABS: INR 1.6; Prothrombin Time 17.6 Seconds (9.4-12.1)
[2017-10-28 06:01] LABS: Alanine Aminotransferase 22 Units/L (7-52); Albumin 3.1 g/dL (3.5-5.7); Albumin/Globulin Ratio 1.1 (1.1-2.2); Alkaline Phosphatase 87 Units/L (34-104); Aspartate Amino Transferase 21 Units/L (13-39); BUN/Creatinine Ratio 17 (6-26); Bilirubin,Direct 0.5 mg/dL (0.0-0.2); Bilirubin,Indirect 0.9 mg/dL (0.0-1.2); Bilirubin,Total 1.4 mg/dL (0.3-1.0); Blood Urea Nitrogen 15 mg/dL (8-23); Calcium 8.1 mg/dL (8.6-10.3); Carbon Dioxide 23 mEq/L (23-29); Chloride 107 mEq/L (98-107); Globulin 2.8 g/dL (2.4-3.5); Glucose 127 mg/dL (70-105); Osmolality,Calculated 288 (280-300); Sodium 138 mEq/L (136-145); Total Protein 5.9 g/dL (6.4-8.9); eGFR For African Americans > 60 (> 60); eGFR For Non-African Americans > 60 (> 60)
[2017-10-28] MEDS: Insulin LISPRO 300 UNITS/3 ML VIAL SQ SCH ×3 (08:22→17:10)
[2017-10-28] MEDS: Gabapentin 300 MG CAPSULE PO SCH (08:28)
[2017-10-28] MEDS: Piperacillin/Tazobactam 3.375 GM/200 ML BAG IVPB SCH ×2 (08:28→17:10)
[2017-10-28] MEDS: *HR* HYDROmorphone 2 MG/ML SYRINGE IVP PRN (08:32)
[2017-10-28] MEDS ORDERED: *HR* HYDROmorphone (PF) 1 MG/ML SYRINGE IVP PRN (11:15)
--- NOTE | 2017-10-28 13:49 | Anesthesia Evaluation PreOp ---
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 HOUSEKEEPER History: Denies Any Significant HX Other Medical History: Diabetes Type II Anesthesia History: No Prior Anesthetic Complications, Past Anesthesia ( cystoscopy, tonsils, cardioversions) Alcohol Use: none, occasionally Drug use: none Medications and Allergies Gabapentin [Neurontin] 300 mg PO QAM 02/26/16 [History] Gabapentin [Neurontin] 600 mg PO HS 02/26/16 [History] Levothyroxine [Synthroid] 75 mcg PO DAILY 02/26/16 [History] Sotalol [Betapace] 160 mg PO Q12HR 02/26/16 [History] Tamsulosin [Flomax] 0.4 mg PO DAILY 02/26/16 [History] Warfarin [Coumadin] 11 mg PO DAILY 02/26/16 [History] metFORMIN [Glucophage] 500 mg PO BIDWM 02/26/16 [History] 3 Allergy/AdvReac Type Severity Reaction Status Date / Time diazepam AdvReac Nausea Verified 10/24/17 23:43 - Meds/Allergy Pre-op Review Medications Reviewed: Yes Allergies Reviewed: Yes If Beta Blockers taken, Date/Time (Last Dose taken): today 618 Anesthesia Results - Labs 10/28/17 05:21 10/28/17 05:21 - Imaging Additional studies: echo 6-17: Impressions: Sinus bradycardia, HR 40's. LVEF 55%. Normal LV chamber size, wall thickness and function. Mild left ventricular diastolic dysfunction. Mild tricuspid regurgitation. Normal right ventricular structure and function. Mild-moderate mitral regurgitation. No pulmonary hypertension. The IVC is dilated. Significant dilation of the descending thoracic aorta. Recommend further evaluation with CT if appropriate. Findings communicated to ordering physician. echo 4-16: Impressions: LVEF 35%. Moderate to severe global LV hypokinesis. The right ventricle was normal in size and systolic function. Moderate to severely dilated left atrium. LA appendage is normal in appearance. No thrombus. Moderate-severe mitral regurgitation. Mild tricuspid regurgitation. No pulmonary hypertension identified. Successful synchronized cardioversion using 150 Joules. No neurological deficits after the procedure. Clinical correlation suggested. Surgical correction of mitral regurgitation should be considered given severity of MR, reduced LV function, and atrial fibrillation. Anesthesia Exam Selected Entries 10/28/17 11:25 Temperature 99.1 F Pulse Rate 110 Respiratory Rate 14 Blood Pressure 126/78 O2 Sat by Pulse Oximetry 92 Oxygen Flow Rate (LPM) 2 Weight: 92kg - MEDICAL HOUSEKEEPER LOC: Oriented MEDICAL HOUSEKEEPER Motor: Normal RUE, Normal LUE, Normal RLE, Normal LLE, Normal Face MEDICAL HOUSEKEEPER Sensory: Normal: RUE, LUE, RLE, LLE, Face - Cardiac Rhythm: Irregular Murmur: None - Pulmonary Breath Sounds: bilateral Clear Respiratory Effort: Symmetrical Anesthesia Assess/Plan ASA Score: 4 Modified Sparks Scale for Level of Consciousness: Cooperative, oriented, and tranquil Anesthetic Plan: General Monitoring Plan: Standard Monitors Recovery Plan: PACU (agrees to GA) <Gerald Vasquez - Last Filed: 10/28/17 17:25> Date of Encounter: 10/28/17 Time of Encounter: 17:25 - Past History Other Medical History: Thyroid Anesthesia Results - Labs 10/28/17 05:21 10/28/17 05:21 Anesthesia Exam - HEENT Pupil (Motor): EOMI Mallampati: III Teeth: Normal Oral Opening: Greater than 3
[2017-10-28] MEDS ORDERED: 0.9 % Sodium Chloride 1,000 ML IVC SCH (14:50)
--- NOTE | 2017-10-28 14:51 | Event Note ---
Date of Encounter: 10/28/17 Time of Encounter: 14:50 Confirmed with patient that he has not had anything to eat or drink since prior to Midnight. NPO order placed in chart. Per RN, he has been NPO.
[2017-10-28] MEDS ORDERED: *HR* FentaNYL (PF) 100 MCG/2 ML VIAL ONE ×3 (15:43→21:24)
[2017-10-28] MEDS ORDERED: *HR* Propofol 200 MG/20 ML VIAL IVP ONE ×2 (15:43→21:05)
--- NOTE | 2017-10-28 20:22 | Operative Note ---
Date of procedure: 10/28/17 Pre-op diagnosis: Symptomatic cholelithiasis Post-op diagnosis: other (Necrotic gangrenous acute cholecystitis, umbilical hernia) Procedure: Laparoscopic converted to open cholecystectomy primary repair of umbilical hernia Complications: none immediate Anesthesia: CHAPOA Surgeon: Veronica Elena Was there an financial sales assistant present: No Artificial Marble Worker Other: Stu Angulo Estimated blood loss (cc): 200 Specimen: gallbladder and contents Condition: stable Disposition: PACU Procedure in Detail: Was brought Into the operating suite and placed supine on the operating table. Sign in was performed and everyone was in agreement. Anesthesia was induced and patient was endotracheally intubated by anesthesia without incident. The abdomen was prepped and draped in the usual sterile fashion. Timeout was performed again everyone was in agreement. A supraumbilical incision through the skin and the subcutaneous tissues made with an 11 blade. Towel clamps were placed on either side of the umbilicus skin for retraction. We dissected down to the umbilical hernia with S retractors. A Veress needle was placed through this and a water drop test confirmed placement and the abdomen was insufflated. We entered the abdomen the umbilical incision through the umbilical hernia with a 5 mm 0 degree laparoscope on an XL trocar. The area under entry was visualized and there was no apparent bleeding or obvious bowel injury. An incision in the subxiphoid region was made with an 11 blade and a 5 mm trocar was placed under direct visualization. A right upper quadrant subcostal midclavicular line 5 mm port was placed under direct visualization after first incising the skin with an 11 blade. The laparoscope was placed through this and the 5 mm umbilical port was exchanged for a 12 mm port under direct visualization. The laparoscope was placed through the umbilical port and the last 5 mm port was placed in the right upper quadrant anterior axillary line subcostal position under direct visualization after first incising the skin with an 11 blade. Patient was placed in steep reverse Trendelenburg left side down position. Omentum was overlying the dome of the liver and was gently retracted revealing a gangrenous and necrotic gallbladder. 30 mL of bile was aspirated from the gallbladder as it was extremely tense, this was done with the laparoscopic aspirator. The dome of the gallbladder was grasped and retracted cephalad. The infundibulum was grasped and retracted laterally. The soft tissue about the infundibulum of the gallbladder portal triad, even the omentum was densely inflamed and fibrotic. Despite retraction visualization of what should have been the area of the cystic duct and artery was not well visualized beneath the swollen edematous and fibrotic omentum. The decision to go open was made. The patient was placed in supine position. All trochars were removed from the abdomen. The abdominal wall at the umbilical hernia site was closed with an 0 Vicryl [id number] stitch. Using a 15 blade a [place] incision in the right upper quadrant was made through the skin and the subcutaneous tissue through the previous port sites. We dissected through the subcutaneous tissue to the fascia which was opened with the Bovie. A Ashley was placed beneath the rectus muscle which was split with the Bovie. Carlos Enrique's were placed on either side of the fascia for retraction and the abdomen was entered with the Bovie the incision elongated. The Bookwalter was placed for retraction. Warm wet laps were placed beneath the Bookwalter retractors against the bowel. The dome of the gallbladder was grasped with a Ashley. The gallbladder was taken down off the liver in a down down fashion. Due to the inflammation and necrosis of the gallbladder there was a small amount of oozing of blood from the liver bed. This was stopped with the Bovie and Surgicel. Dissection was carried down to the infundibulum. 2 Ashley's were placed on either side of the dome of the gallbladder and the gallbladder was opened longitudinally with the Bovie. Stones were removed with DeBakey and evaluation of the inside of the gallbladder revealed no obvious cystic duct, this was evaluated with a DeBakey and the cholangiocatheter tip. Gentle blunt dissection and with a right angle and a bovie about the infundibulum of the gallbladder demonstrated two structures that presented at almost right angles from the portal triad area and again evaluation of the lumen of the gallbladder revealed no obvious location of the cystic duct. Visualization of these 2 structures that were palpable was very difficult to to the foreshortened nature of each, and the large thick edematous nature of the infundibulum of the gallbladder. Using a right angle, the posterior and most inferior aspect of the infundibulum was dissected using the Bovie. There was an area of firm fibrotic tissue in this area and again the interior of the infundibulum of the gallbladder in this area revealed no lumen. Using a right angle at the infundibulum, evaluation and dissection at these three potential structures was done to in an attempt to determine if two of these structures was a tented common bile duct. Dissection demonstrated that all three of these areas appeared to enter/connect to the gallbladder at distinct areas and no connection between any could be elicited. Two 5 mm hemoclips were placed on the posterior and medial structures and transected with metzenbaum scissors. No obvious lumen was evident at either transected areas. The most inferior structure was doubly clipped with two 10 mm hemoclips and transected with curved scissors. A lumen was obvious but no bile or blood was seen at the lumen. A 10 mm PRISCILLA drain was placed into the gallbladder fossa after first incising the skin in the right lateral abdominal wall with a 15 blade. The PRISCILLA drain was secured to the skin with a 2-0 silk stitch. The right upper quadrant was irrigated with sterile saline. The gallbladder fossa was evaluated and there was no obvious bleeding. The bookwalker was removed. The peritoneum was reapproximated with a 3-0 vicryl running stitch. The posterior rectus fascia was reapproximated with a #1 nonlooped PDS running stitch. The anterior rectus fascia was reapproximated with a #1 nonlooped PDS running stitch. The subcutaneous tissue was irrigated with sterile saline. The subcutaneous tissue was approximated with 3-0 Vicryl interrupted stitches. The skin was closed with ancelmo. 2 areas of the incision were packed with quarter inch iodoform packing. 4 x 4 gauze and Medipore tape were applied as a dressing, drain sponge and Medipore tape were applied to the PRISCILLA drain. Jackson were used to close the skin of the umbilical incision.
[2017-10-28] MEDS ORDERED: Neostigmine Methylsulfate 3 MG/3 ML SYRINGE ONE (20:37)
[2017-10-28] MEDS ORDERED: *HR* HYDROmorphone 2 MG/ML SYRINGE ONE (20:50)
[2017-10-28] MEDS ORDERED: *HR* Succinylcholine 200 MG/10 ML VIAL IVP ONE (21:05)
[2017-10-28] MEDS ORDERED: Dextrose Gel 15 GM/37.5 ML TUBE PO PRN ×2 (21:09)
[2017-10-28] MEDS ORDERED: *HR* Dextrose 50 % in Water (Syg) 50 ML SYRINGE IVP PRN (21:09)
[2017-10-28] MEDS ORDERED: D5% in Water 1,000 ML IVC PRN (21:09)
[2017-10-28] MEDS ORDERED: Naloxone 0.4 MG/ML INJ IVP PRN (21:09)
[2017-10-28] MEDS ORDERED: Ondansetron 4 MG/2 ML VIAL IVP PRN (21:09)
[2017-10-28] MEDS ORDERED: *HR* Metoprolol 5 MG/5 ML VIAL IVP PRN (21:09)
[2017-10-28] MEDS ORDERED: Lacri-Lube 3.5 GM TUBE BOTH EYES PRN (21:22)
--- NOTE | 2017-10-28 21:29 | Anesthesia Procedures ---
Date of Encounter: 10/28/17 Time of Encounter: 20:15 Procedures: Anesthesia - Central Line Placement Right IJ Supplemental Oxygen via Nasal Cannula (L/min): 10 (ETT) MD prep: mask, gown, gloves Central line prep: Chlorhexidine scrub Ultrasound used for placement: Yes Technique: Seldinger Lumen Inserted: triple Size / Length: 7 Fr / 16 cm Post procedure: sutured in place, good blood return, all ports aspirated, flushed, capped, sterile dressing applied Patient tolerated procedure: well, no complications Complications: none
--- NOTE | 2017-10-28 23:02 | Anesthesia Procedures ---
Date of Encounter: 10/28/17 Time of Encounter: 22:40 Procedures: Anesthesia - Central Line Placement Right Femoral Supplemental Oxygen via Nasal Cannula (L/min): 10 (ETT) prep: mask, gown, gloves Central line prep: Chlorhexidine scrub, sterile drapes applied Ultrasound used for placement: Yes Technique: Seldinger Lumen Inserted: triple Size / Length: 7 Fr / 20 cm Post procedure: sutured in place, good blood return, all ports aspirated, flushed, capped, sterile dressing applied Patient tolerated procedure: well, no complications Complications: none Comments: Patient with R IJ with tip in subclavian instead of vena cava. Attempts made a re-wiring without success, so right femoral was placed instead.
[2017-10-28] MEDS: FentaNYL (PF) 1,000 MCG in 0.9 % Sodium Chloride 80 ML IVC SCH (23:05)
[2017-10-28] MEDS: 0.9 % Sodium Chloride 1,000 ML IVC SCH (23:30)
[2017-10-28 23:38] LABS: ABG Base Excess -7 mEq/L (-2 to 3); ABG HCO3 20 mEq/L (21-27); ABG Oxygen Saturation 99 % (95-98); ABG PCO2 43 mmHg (35-45); ABG PH 7.27 pH Units (7.32-7.45); ABG PO2 142 mmHg (85-104); ABG TCO2 21 mEq/L (20-26); Blood Gas Modality VC; Blood Gas PEEP 5 cm H2O; Blood Gas Respiration Rate 14; Blood Gas VT 450 cc
[2017-10-29] MEDS: Piperacillin/Tazobactam 3.375 GM/200 ML BAG IVPB SCH ×4 (00:12→23:12)
[2017-10-29] MEDS: Lacri-Lube 3.5 GM TUBE BOTH EYES SCH ×4 (00:13→11:40)
[2017-10-29] MEDS: *HR* Heparin 5,000 UNIT/ML VIAL SQ SCH ×3 (00:13→13:17)
[2017-10-29] MEDS: FentaNYL (PF) 1,000 MCG in 0.9 % Sodium Chloride 80 ML IVC SCH (04:08)
[2017-10-29 04:18] LABS: Basophils % 0.1 %; Hematocrit 34.5 % (37.5-50.1); Hemoglobin 11.1 g/dL (12.9-16.9); Lymphocytes # 0.9 K/mcL (0.6-4.6); Lymphocytes % 5.5 %; Mean Corpuscular HGB Conc 32.2 g/dL (31.6-35.5); Mean Corpuscular Volume 90.1 fL (83.0-100.0); Mean Platelet Volume 9.9 fL (9.4-12.4); Monocytes % 6.1 %; Neutrophils # 14.2 K/mcL (1.6-8.9); Platelet Count 296 K/mcL (140-400); Red Blood Count 3.83 M/mcL (4.19-5.50); Red Cell Distribution Width 13.4 % (11.5-14.5); Segmented Neutrophils % 87.3 %
[2017-10-29 04:27] LABS: ABG Base Excess -4 mEq/L (-2 to 3); ABG HCO3 23 mEq/L (21-27); ABG Oxygen Saturation 92 % (95-98); ABG PCO2 46 mmHg (35-45); ABG PO2 70 mmHg (85-104); ABG TCO2 24 mEq/L (20-26); Blood Gas Modality VC; Blood Gas PEEP 5 cm H2O; Blood Gas Respiration Rate 14; Blood Gas VT 450 cc
[2017-10-29 04:37] LABS: Alanine Aminotransferase 29 Units/L (7-52); Albumin 2.7 g/dL (3.5-5.7); Alkaline Phosphatase 86 Units/L (34-104); Aspartate Amino Transferase 31 Units/L (13-39); BUN/Creatinine Ratio 20 (6-26); Bilirubin,Direct 0.3 mg/dL (0.0-0.2); Bilirubin,Indirect 0.4 mg/dL (0.0-1.2); Bilirubin,Total 0.7 mg/dL (0.3-1.0); Blood Urea Nitrogen 19 mg/dL (8-23); Calcium 7.7 mg/dL (8.6-10.3); Carbon Dioxide 24 mEq/L (23-29); Chloride 108 mEq/L (98-107); Globulin 2.7 g/dL (2.4-3.5); Glucose 145 mg/dL (70-105); Magnesium 1.6 mg/dL (1.6-2.6); Osmolality,Calculated 291 (280-300); Phosphorous 3.5 mg/dL (2.7-4.5); Potassium 4.1 mEq/L (3.5-5.1); Sodium 138 mEq/L (136-145); Total Protein 5.4 g/dL (6.4-8.9); eGFR For African Americans > 60 (> 60); eGFR For Non-African Americans > 60 (> 60)
[2017-10-29] MEDS: Gabapentin 300 MG CAPSULE PO SCH ×2 (06:57→07:21)
[2017-10-29] MEDS: Insulin LISPRO 300 UNITS/3 ML VIAL SQ SCH ×4 (06:57→16:14)
[2017-10-29] MEDS: 0.9 % Sodium Chloride 1,000 ML IVC SCH ×3 (06:58→20:03)
[2017-10-29] MEDS ORDERED: Dexmedetomidine HCl 400 MCG/100 ML MLS IVC SCH (08:30)
[2017-10-29] MEDS ORDERED: Dexmedetomidine HCl 400 MCG/100 ML MLS IVC ONE (08:34)
--- NOTE | 2017-10-29 08:40 | General Surgery Progress Note ---
<Cecily Fontenot - Last Filed: 10/29/17 11:20> Date of Encounter: 10/29/17 Time of Encounter: 08:39 - Assessment and Plan (1) Symptomatic cholelithiasis Current Visit: Yes Status: Acute Date of procedure: 10/28/17 Pre-op diagnosis: Symptomatic cholelithiasis Post-op diagnosis: other (Necrotic gangrenous acute cholecystitis, umbilical hernia) Procedure: #1Laparoscopic converted to open cholecystectomy; #2 primary repair of umbilical hernia Complications: none immediate Anesthesia: GETA Surgeon: Veronica Elena Was there an catalog library assistant present: No Engineering Designer Other: Stu nAgulo Estimated blood loss (cc): 200 Noted to have necrotic in gangrenous acute cholecystitis. Incidental finding and repair of umbilical hernia. Noted after surgical procedure, patient became combative in PACU and was pulling at line. He was sedated and intubated for safety. Pt is now extubated and is oriented to person only. His abdominal exam is overall benign. There is a small amount of 0 synchronous drainage noted in his PRISCILLA drain. 2 small areas of waking in his abdominal incision noted. Overall it is clean dry and intact. He does have some decreased urine output (25 ML's per hour since midnight). There are no overt signs of bleeding noted. . Plan: -NPO except limited ice chips for pleasure. -Supportive care and discomfort management; await return of bowel function -continue G.I. prophylaxis -aggressive pulmonary toileting -out of bed to chair BID (when ok with critical care i.e. right femoral line). Further recommendations/okay to advance activity per PT and OT recommendations -given NICM history will cautiously bolus with 1 L normal saline and monitor I/ Os. -serial abdominal exams. -repeat am labs Ofirmev for discomfort management in an effort to reduce confusion causes -OK to restart coumadin. AC management per cardiology (Spoke with Daly Hill CNP) -Continue IV ATBX (2) Chronic atrial fibrillation Current Visit: Yes Status: Acute See plan above. Management per cardiology. (3) Chronic anticoagulation Current Visit: Yes Status: Chronic C plan above. Management per cardiology. (4) Cough Current Visit: Yes Status: Acute Aggressive pulmonary toileting. Incentive spirometry. Repeat CXR as indicated. (5) NICM (nonischemic cardiomyopathy) Current Visit: Yes Status: Chronic See plan above. Management per cardiology. (6) Abdominal pain Current Visit: Yes Status: Acute See plan above. Qualifiers: Abdominal location: right upper quadrant Qualified Code(s): R10.11 - Right upper quadrant pain Subjective Patient reports: still having pain, voiding w/o difficulty (Per drew), no flatus, no bowel movement, afebrile Narrative: Awake. Confused. Does not remember where he is or why he is here. He states abdominal pain that feels different than previous. Objective Vital Signs - Last 8 Hours Temp Pulse Resp BP Pulse Ox 10/29/17 08:00 52 14 94/61 97 10/29/17 07:37 15 96 10/29/17 07:34 97.8 F 10/29/17 07:15 54 10/29/17 07:00 53 15 93/55 96 10/29/17 06:00 56 15 95/58 96 10/29/17 05:50 15 81/52 95 10/29/17 05:22 97.6 F 10/29/17 05:00 56 16 100/62 95 10/29/17 04:15 15 91/60 94 10/29/17 04:00 70 26 96/60 94 10/29/17 03:40 57 10/29/17 03:00 56 16 96/60 96 10/29/17 02:15 15 99/61 97 10/29/17 02:00 60 14 94/60 96 10/29/17 01:00 61 18 93/58 96 10/29/17 00:40 62 Intake and Output 10/28/17 10/29/17 10/29/17 23:59 07:59 15:59 Intake Total 200 / 200 400 / 400 Output Total 250 / 250 290 / 290 Balance -50 / -50 110 / 110 Intake: IV Fluids 200 / 200 400 / 400 0.9 % Sodium Chloride 1,000 ML 0 / 0 @ 100 mls/hr IVC .Q10H [facility] Rx#: [id number] FentaNYL (PF) 1,000 MCG In 0.9 100 / 100 % Sodium Chloride 80 ML @ 50 MCG/HR 5 mls/hr IVC CONT [facility] Rx #:[id number] Diprivan 1,000 mg In 100 ml @ 5 100 / 100 MCG/KG/MIN 2.76 mls/hr IVC . Q24H [facility] Rx#:[id number] Zosyn Premix 3.375 GM/200 ML 3. 200 / 200 200 / 200 375 gm In 200 ml @ 50 mls/hr IVPB Q8HR [facility] Rx#:[id number] Output: Estimated Blood Loss 200 / 200 Catheter 250 / 250 Wound Drainage 50 / 50 40 / 40 Right Abdomen 50 / 50 40 / 40 Other: Stool Size Large Stool Consistency soft Stool Color Brown # Urine Diapers 1 Weight 92.4 kg Blood Glucose* 168 155 - General physical appearance moderate pain - Eyes other (Conjunctivae are pink. No icteric noted), normal ocular movement - ENT atraumatic, normocephalic - Neck Neck exam: trachea midline, no venous distension - Respiratory other (Decreased course breath sounds. Exp wheezing anteriorly.) - Cardiovascular Cardiovascular exam: Present: RRR, murmurs, distant heart sounds - Abdomen Abdomen: Present: bowel sounds present, soft, tender, wound (PRISCILLA drain in tact. Small amount of SS drainage) Abdominal Tenderness: RUQ Hernia: none - Incision Incision: Present: clean and dry, intact (2 small areas of [place] noted) - Genitourinary other (drew catheter in place) - Integumentary no rash, no growths, no abnormal pigmentation - Neurologic normal sensation, disoriented - Musculoskeletal normal posture - Psychiatric oriented to person - Labs 10/29/17 04:00 10/29/17 04:00 Diabetes panel 10/29/17 Range/Units 04:00 Sodium 138 (136-145) mEq/L Potassium 4.1 (3.5-5.1) mEq/L Chloride 108 H (98-107) mEq/L Carbon Dioxide 24 (23-29) mEq/L BUN 19 (8-23) mg/dL Creatinine 0.97 (0.70-1.30) mg/dL Glucose 145 H (70-105) mg/dL Calcium 7.7 L (8.6-10.3) mg/dL AST 31 (13-39) Units/L ALT 29 (7-52) Units/L Alkaline Phosphatase 86 (34-104) Units/L Albumin 2.7 L (3.5-5.7) g/dL Calcium panel 10/29/17 Range/Units 04:00 Calcium 7.7 L (8.6-10.3) mg/dL Phosphorus 3.5 (2.7-4.5) mg/dL Albumin 2.7 L (3.5-5.7) g/dL Pituitary panel 10/29/17 Range/Units 04:00 Sodium 138 (136-145) mEq/L Potassium 4.1 (3.5-5.1) mEq/L Chloride 108 H (98-107) mEq/L Carbon Dioxide 24 (23-29) mEq/L BUN 19 (8-23) mg/dL Creatinine 0.97 (0.70-1.30) mg/dL Glucose 145 H (70-105) mg/dL Calcium 7.7 L (8.6-10.3) mg/dL Adrenal panel 10/29/17 Range/Units 04:00 Sodium 138 (136-145) mEq/L Potassium 4.1 (3.5-5.1) mEq/L Chloride 108 H (98-107) mEq/L Carbon Dioxide 24 (23-29) mEq/L BUN 19 (8-23) mg/dL Creatinine 0.97 (0.70-1.30) mg/dL Glucose 145 H (70-105) mg/dL Calcium 7.7 L (8.6-10.3) mg/dL Total Bilirubin 0.7 (0.3-1.0) mg/dL AST 31 (13-39) Units/L ALT 29 (7-52) Units/L Alkaline Phosphatase 86 (34-104) Units/L Albumin 2.7 L (3.5-5.7) g/dL - VTE Documentation of Mechanical Device: Intermittent pneumatic compression device Consult Discharge Plan - Plan Referrals: Merced Rodriguez MD [Primary Care Provider] - <Veronica Elena - Last Filed: 10/30/17 14:59> Date of Encounter: 10/29/17 - Assessment and Plan (1) A-fib Current Visit: Yes Status: Chronic currently in rhythm ok to restart po coumadin Qualifiers: Atrial fibrillation type: paroxysmal Qualified Code(s): I48.0 - Paroxysmal atrial fibrillation (2) Abdominal pain Current Visit: Yes Status: Acute pain improved and different, continue prn pain control Qualifiers: Abdominal location: right upper quadrant Qualified Code(s): R10.11 - Right upper quadrant pain (3) Chronic anticoagulation Current Visit: Yes Status: Chronic (4) NICM (nonischemic cardiomyopathy) Current Visit: Yes Status: Chronic (5) Symptomatic cholelithiasis Current Visit: Yes Status: Acute (6) Leukocytosis Current Visit: Yes Status: Acute continue abx - zosyn currnetly Qualifiers: Leukocytosis type: unspecified Qualified Code(s): D72.829 - Elevated white blood cell count, unspecified (7) Acute gangrenous cholecystitis Current Visit: Yes Status: Resolved pod 1 from open cholecystectomy for acute gangrenous cholecystitis start clears, ok home po meds prn pain control OOB to chair, ambulate gi/dvt prophylaxis. trend labs lft decreased today Subjective Patient reports: still having pain, pain is less, afebrile Narrative: awake, extubated, remembers I am his physician still having RUQ pain but pain is different, denies nausea is thirsty and hungry Objective Vital Signs - Last 8 Hours Temp Pulse Resp BP Pulse Ox 10/30/17 11:00 97.8 F 78 16 152/94 93 10/30/17 10:00 62 16 159/94 91 10/30/17 09:00 63 16 154/83 92 10/30/17 08:00 97.9 F 68 18 120/98 92 10/30/17 07:30 74 10/30/17 07:00 74 18 152/84 94 Intake and Output 10/29/17 10/30/17 10/30/17 23:59 07:59 15:59 Intake Total 1400 / 1400 1300 / 1300 Output Total 590 / 590 340 / 340 845 / 845 Balance 810 / 810 960 / 960 -845 / -845 Intake: IV Fluids 1400 / 1400 1300 / 1300 0.9 % Sodium Chloride 1,000 ML 1000 / 1000 1000 / 1000 @ 100 mls/hr IVC .Q10H [facility] Rx#: [id number] Ofirmev 1,000 mg/100 ml 1,000 200 / 200 100 / 100 mg In 100 ml @ 400 mls/hr IVPB Q6H [facility] Rx#:[id number] Zosyn Premix 3.375 GM/200 ML 3. 200 / 200 200 / 200 375 gm In 200 ml @ 50 mls/hr IVPB Q8HR [facility] Rx#:[id number] Output: Urine 700 / 700 Catheter 550 / 550 300 / 300 100 / 100 Wound Drainage 40 / 40 40 / 40 45 / 45 Right Abdomen 40 / 40 40 / 40 45 / 45 Other: Weight 94.1 kg Blood Glucose* 112 93 Patient Weight 10/30/17 23:59 Weight 94.1 kg - General physical appearance well developed, well nourished, no distress - Eyes normal ocular movement - ENT dry mucosa, atraumatic - Neck Neck exam: trachea midline - Respiratory normal expansion, normal respiratory effort - Cardiovascular Cardiovascular exam: Present: RRR - Abdomen Abdomen: Present: soft, tender (appropriate post op tenderness), wound - Incision Incision: Present: clean and dry (packed at two sites), intact - Genitourinary other (drew catheter in place - cloudy yellow urine) - Integumentary no rash, no abnormal pigmentation - Neurologic normal sensation - Musculoskeletal normal posture - Psychiatric oriented to person - Labs 10/30/17 04:50 10/30/17 04:50 Diabetes panel 10/30/17 Range/Units 04:50 Sodium 140 (136-145) mEq/L Potassium 3.4 L (3.5-5.1) mEq/L Chloride 112 H (98-107) mEq/L Carbon Dioxide 23 (23-29) mEq/L BUN 13 (8-23) mg/dL Creatinine 0.88 (0.70-1.30) mg/dL Glucose 94 (70-105) mg/dL Calcium 7.6 L (8.6-10.3) mg/dL AST 17 (13-39) Units/L ALT 20 (7-52) Units/L Alkaline Phosphatase 74 (34-104) Units/L Albumin 2.7 L (3.5-5.7) g/dL Calcium panel 10/30/17 Range/Units 04:50 Calcium 7.6 L (8.6-10.3) mg/dL Phosphorus 1.4 L (2.7-4.5) mg/dL Albumin 2.7 L (3.5-5.7) g/dL Pituitary panel 10/30/17 Range/Units 04:50 Sodium 140 (136-145) mEq/L Potassium 3.4 L (3.5-5.1) mEq/L Chloride 112 H (98-107) mEq/L Carbon Dioxide 23 (23-29) mEq/L BUN 13 (8-23) mg/dL Creatinine 0.88 (0.70-1.30) mg/dL Glucose 94 (70-105) mg/dL Calcium 7.6 L (8.6-10.3) mg/dL Adrenal panel 10/30/17 Range/Units 04:50 Sodium 140 (136-145) mEq/L Potassium 3.4 L (3.5-5.1) mEq/L Chloride 112 H (98-107) mEq/L Carbon Dioxide 23 (23-29) mEq/L BUN 13 (8-23) mg/dL Creatinine 0.88 (0.70-1.30) mg/dL Glucose 94 (70-105) mg/dL Calcium 7.6 L (8.6-10.3) mg/dL Total Bilirubin 0.6 (0.3-1.0) mg/dL AST 17 (13-39) Units/L ALT 20 (7-52) Units/L Alkaline Phosphatase 74 (34-104) Units/L Albumin 2.7 L (3.5-5.7) g/dL - Attending Attestation I have personally performed a face to face evaluation on this patient. I have reviewed and agree with the care plan. History and Exam by me shows:
[2017-10-29] MEDS ORDERED: Levothyroxine Sodium 100 MCG VIAL IVP SCH (09:00)
[2017-10-29] MEDS ORDERED: Chlorhexidine Rinse 15 ML MOUTHWASH MM SCH (09:00)
--- NOTE | 2017-10-29 09:12 | Pulmonology Consult Note ---
<Jakub Lpoez - Last Filed: 10/29/17 10:37> Date of Encounter: 10/29/17 Time of Encounter: 09:12 Assessment and Plan (1) Agitation requiring sedation protocol Current Visit: Yes Status: Acute Difficulty with extubation post-operatively Was previously sedated on Fentanyl and Profafol Switched Propafol to Precedex and was succesfully extubated at 09:32 this morning Patient is calm and alert, minimally conversive with discontinuation of sedation Sating well on NC O2 Will continue to monitor closely (2) Symptomatic cholelithiasis Current Visit: Yes Status: Acute POD#1 s/p laproscopic converted to open cholecystectomy with primary repair of umbilical hernia Management per surgery team Pain control ABD Binder AAT 90cc out of PRISCILLA today Cr stable Decreased urine output 40cc since 730 this morning - Adding NS bolus NPO except Ice chips (3) Leukocytosis Current Visit: Yes Status: Acute Likely reactive to cholelithiasis and surgery WBC stable at 16.3 Will continue to trend Qualifiers: Leukocytosis type: unspecified Qualified Code(s): D72.829 - Elevated white blood cell count, unspecified (4) Chronic atrial fibrillation Current Visit: Yes Status: Acute Sinus jonn on Tele Restarted home medications with Sotalol Cardiology consulted for anti-coagulation recommendations Will continue to monitor (5) NICM (nonischemic cardiomyopathy) Current Visit: Yes Status: Chronic Last known ECHO 04/12/17: - EF 55% - Mild left diastolic dysfunction - Mild TR, mild-mod MR - No wall motion abnormalities No evidence of acute CHF exacerbation at this time Will continue medical management at this time (6) T2DM (type 2 diabetes mellitus) Current Visit: Yes Status: Acute Coverage with LDSS Accu-checks TIDAC Blood sugars improving Qualifiers: Diabetes mellitus complication status: without complication Diabetes mellitus [facility] insulin use: without [facility] use Qualified Code(s): E11.9 - Type 2 diabetes mellitus without complications (7) Hypothyroidism Current Visit: Yes Status: Chronic Receiving home dose via IV at 70% PO dosing Qualifiers: Hypothyroidism type: acquired Qualified Code(s): E03.9 - Hypothyroidism, unspecified (8) DVT prophylaxis Current Visit: Yes Status: Acute EPCDs and Heparin 5000 q8hrs History of Present Illness Consult date: 10/29/17 Requesting physician: Veronica Elena History of present illness: Mr. Aguilar is a 72 year old male with a past medical history of T2DM, NICM, chronic afib s/p cardioversion x3 (on Chronic warfarin and sotalol)-followed by dr. Xie, idiopathic neuropathy, hypothyroid, hematuria. He has a past surgical history of tonsillectomy at and adenoidectomy in 1952, cystoscopy, cardiac, cardioversion times 3, and colonoscopy by Dr. Altman in 12/2006. He last saw Dr. Xie on 10/22/2017 at which time he had an EKG which noted PAF. Reportedly he started having issues with his heart racing after he took Tamiflu the previous week. He presented to [place] [facility] complaining of abdominal pain. He was then transferred to [facility] with concerns of cholecystitis despite normal appearance of GB on CT. He reported that the pain began 11 PM the previous night while watching TV. It was sudden in onset and sharp onset, radiates from midabdomen to right upper quadrant. It is a constant and dull pain. He tried to get a warm bath to help but nothing improved the pain. He has never had this before and does not associate eating greasy foods with ever having pain. Earlier for dinner he had a [email or web address] boy hamburger. He denies fever, chills, syncope, near syncope, nausea, vomiting, diarrhea, black, bloody, or tarry stool, chest pain, or worsening shortness of breath. He reports chest flattering that is unchanged, right upper quadrant pain, and nonproductive cough. He occasionally have a glass of scotch. On arrival to [facility] , patient was found to be tachycardic and afebrile. Leukocytosis of 15.9 and CMP unremarkable. US of gallbladder demonstrated presence of gall stones with sludge but no evidence of cholecystitis. After cardiac clearance, he underwent a laproscopic that converted to open cholecystectomy yesterday without complication. Post-operative course involved difficulty in extubation in PACU due to confusion, combativeness and agitation that required re-intubation. Additionally, he was found to be hypotensive and a CVC was placed in right IJ but distal tip was within the left subclavian vein. CVC was removed and right femoral was placed without complication. He was transferred to ICU for close monitoring later in the evening and thus Pulm/Critical care was consulted. On evaluation, he was intubated on ventilator support and hemodynamically stable. He was successfully extubated at 9:32 this morning and off sedation. We will continue to monitoring closely ICU and offer further interventions as necessary. Past Med Surg Social Fam HX - Past Medical History Medical history: atrial fibrillation, cardiomyopathy, diabetes, fibromyalgia, valvular heart disease Psychiatric history: no psych history - Past Surgical History Surgical History: other (Cardioversions x3; tonsilectomy;; cystosomy) - Social History Smoking Status: Former smoker Smokeless Tobacco Status: No Alcohol use: none, occasionally Drug use: none - Family History Mother Living Status: Hx Family Cancer: Yes (Lung cancer) Brother Hx Family Cancer: Yes (prostate) Medications and Allergies Gabapentin [Neurontin] 300 mg PO QAM 02/26/16 [History] Gabapentin [Neurontin] 600 mg PO HS 02/26/16 [History] Levothyroxine [Synthroid] 75 mcg PO DAILY 02/26/16 [History] Sotalol [Betapace] 160 mg PO Q12HR 02/26/16 [History] Tamsulosin [Flomax] 0.4 mg PO DAILY 02/26/16 [History] Warfarin [Coumadin] 11 mg PO DAILY 02/26/16 [History] metFORMIN [Glucophage] 500 mg PO BIDWM 02/26/16 [History] 3 Allergy/AdvReac Type Severity Reaction Status Date / Time diazepam AdvReac Nausea Verified 10/24/17 23:43 ROS unobtainable: due to endotracheal tube All Systems: A 10-system review of systems was performed and is negative for pertinent findings except as documented above in the HPI. Physical Examination Vital Signs: Vital Signs, Last 4 Hours Temp Pulse Resp BP Pulse Ox 10/29/17 09:00 48 14 95 10/29/17 08:00 52 14 94/61 97 10/29/17 07:37 15 96 10/29/17 07:34 97.8 F 10/29/17 07:15 54 10/29/17 07:00 53 15 93/55 96 10/29/17 06:00 56 15 95/58 96 10/29/17 05:50 15 81/52 95 10/29/17 05:22 97.6 F General appearance: other (intubated, opening eyes and squeezing fingers to simple questions) Eyes: nonicteric ENT: other (intubated) Neck: supple Effort: mildly labored Auscultation: bilateral: diminished breath sounds Cardiovascular: other (sinus bradycardia) Gastrointestinal: normoactive bowel sounds, non-distended Integumentary: normal Extremities: no cyanosis, no edema, no clubbing Musculoskeletal: no deformities unable to assess due to mental status (intubated) Ventilator Settings Ventilator Settings: Ventilator Settings, Last 8 Hours Ventilator Mode VC+ Ventilator Mode VC+ Ventilator Mode VC+ Ventilator Mode VC+ Ventilator Mode VC+ Ventilator Mode VC+ Ventilator Mode VC+ Ventilator Mode VC+ Ventilator Mode VC+ Ventilator Mode VC+ Ventilator Mode VC+ Ventilator Mode VC+ Ventilator Mode VC+ Ventilator Tidal Volume 500 Setting Ventilator Tidal Volume 500 Setting Ventilator Tidal Volume 500 Setting Ventilator Tidal Volume 450 Setting Ventilator Tidal Volume 450 Setting Ventilator Tidal Volume 450 Setting Ventilator Tidal Volume 450 Setting Ventilator Tidal Volume 450 Setting Ventilator Tidal Volume 450 Setting Ventilator Tidal Volume 450 Setting Ventilator Tidal Volume 450 Setting Ventilator Tidal Volume 450 Setting Ventilator Tidal Volume 450 Setting Ventilator Respiratory Rate 14 Setting Ventilator Respiratory Rate 14 Setting Ventilator Respiratory Rate 14 Setting Ventilator Respiratory Rate 14 Setting Ventilator Respiratory Rate 14 Setting Ventilator Respiratory Rate 14 Setting Ventilator Respiratory Rate 14 Setting Ventilator Respiratory Rate 14 Setting Ventilator Respiratory Rate 14 Setting Ventilator Respiratory Rate 14 Setting Ventilator Respiratory Rate 14 Setting Ventilator Respiratory Rate 14 Setting Ventilator Respiratory Rate 14 Setting Actual Respiratory Rate 14 Actual Respiratory Rate 14 Actual Respiratory Rate 15 Actual Respiratory Rate 15 Actual Respiratory Rate 16 Actual Respiratory Rate 15 Actual Respiratory Rate 16 Actual Respiratory Rate 15 Actual Respiratory Rate 24 Actual Respiratory Rate 16 Actual Respiratory Rate 15 Actual Respiratory Rate 15 Positive End Expiratory 5 Pressure Positive End Expiratory 5 Pressure Positive End Expiratory 5 Pressure Positive End Expiratory 5 Pressure Positive End Expiratory 5 Pressure Positive End Expiratory 5 Pressure Positive End Expiratory 5 Pressure Positive End Expiratory 5 Pressure Positive End Expiratory 5 Pressure Positive End Expiratory 5 Pressure Positive End Expiratory 5 Pressure Positive End Expiratory 5 Pressure Positive End Expiratory 5 Pressure Peak Inspiratory Airway 23 Pressure Peak Inspiratory Airway 23 Pressure Peak Inspiratory Airway 21 Pressure Peak Inspiratory Airway 20 Pressure Peak Inspiratory Airway 19 Pressure Peak Inspiratory Airway 21 Pressure Peak Inspiratory Airway 20 Pressure Peak Inspiratory Airway 21 Pressure Peak Inspiratory Airway 40 Pressure Peak Inspiratory Airway 20 Pressure Peak Inspiratory Airway 20 Pressure Peak Inspiratory Airway 19 Pressure Results - Laboratory Findings CBC and BMP: 10/29/17 04:00 10/29/17 04:00 ABG ABG pH 7.30 pH Units (7.32-7.45) L 10/29/17 04:23 ABG pCO2 46 mmHg (35-45) H 10/29/17 04:23 ABG pO2 70 mmHg (85-104) L D 10/29/17 04:23 ABG O2 Saturation 92 % (95-98) L 10/29/17 04:23 PT/INR, D-dimer PT 17.6 Seconds (9.4-12.1) H 10/28/17 05:21 Abnormal lab findings: Abnormal lab results WBC 16.3 K/mcL (4.3-11.1) H 10/29/17 04:00 RBC 3.83 M/mcL (4.19-5.50) L 10/29/17 04:00 Hgb 11.1 g/dL (12.9-16.9) L 10/29/17 04:00 Hct 34.5 % (37.5-50.1) L 10/29/17 04:00 Neutrophils # 14.2 K/mcL (1.6-8.9) H 10/29/17 04:00 PT 17.6 Seconds (9.4-12.1) H 10/28/17 05:21 ABG pH 7.30 pH Units (7.32-7.45) L 10/29/17 04:23 ABG pCO2 46 mmHg (35-45) H 10/29/17 04:23 ABG pO2 70 mmHg (85-104) L D 10/29/17 04:23 ABG O2 Saturation 92 % (95-98) L 10/29/17 04:23 ABG Base Excess -4 mEq/L (-2 to 3) L 10/29/17 04:23 Chloride 108 mEq/L (98-107) H 10/29/17 04:00 Glucose 145 mg/dL (70-105) H 10/29/17 04:00 POC Glucose 155 (58-89) H 10/29/17 07:18 Calcium 7.7 mg/dL (8.6-10.3) L 10/29/17 04:00 Direct Bilirubin 0.3 mg/dL (0.0-0.2) H 10/29/17 04:00 Serum Total Protein 5.4 g/dL (6.4-8.9) L 10/29/17 04:00 Albumin 2.7 g/dL (3.5-5.7) L 10/29/17 04:00 Albumin/Globulin Ratio 1.0 (1.1-2.2) L 10/29/17 04:00 - Diagnostic Findings Chest x-ray: report reviewed - Clinical Findings Intake & Output: Intake & Output 10/28/17 10/29/17 10/29/17 23:59 07:59 15:59 Intake Total 200 / 200 400 / 400 270 / 270 Output Total 250 / 250 290 / 290 Balance -50 / -50 110 / 110 270 / 270 Weight 92.4 kg Consult Discharge Plan - Plan Referrals: Merced Rodriguez MD [Primary Care Provider] - <Gemini Maldonado - Last Filed: 10/29/17 15:25> Date of Encounter: 10/29/17 All Systems: A 10-system review of systems was performed and is negative for pertinent findings except as documented above in the HPI. Physical Examination Vital Signs: Vital Signs, Last 4 Hours Temp Pulse Resp BP Pulse Ox 10/29/17 15:00 97.9 F 62 18 115/64 95 10/29/17 14:00 66 19 96/55 94 10/29/17 13:04 94 10/29/17 13:00 65 18 99/67 95 10/29/17 12:00 62 18 128/80 94 10/29/17 11:43 97.7 F Ventilator Settings Ventilator Settings: Ventilator Settings, Last 8 Hours Ventilator Mode VC+ Ventilator Mode VC+ Ventilator Mode VC+ Ventilator Tidal Volume 500 Setting Ventilator Tidal Volume 500 Setting Ventilator Tidal Volume 500 Setting Ventilator Respiratory Rate 14 Setting Ventilator Respiratory Rate 14 Setting Ventilator Respiratory Rate 14 Setting Actual Respiratory Rate 14 Actual Respiratory Rate 14 Actual Respiratory Rate 15 Positive End Expiratory 5 Pressure Positive End Expiratory 5 Pressure Positive End Expiratory 5 Pressure Peak Inspiratory Airway 23 Pressure Peak Inspiratory Airway 23 Pressure Peak Inspiratory Airway 21 Pressure Results - Laboratory Findings CBC and BMP: 10/29/17 04:00 10/29/17 04:00 ABG ABG pH 7.30 pH Units (7.32-7.45) L 10/29/17 04:23 ABG pCO2 46 mmHg (35-45) H 10/29/17 04:23 ABG pO2 70 mmHg (85-104) L D 10/29/17 04:23 ABG O2 Saturation 92 % (95-98) L 10/29/17 04:23 PT/INR, D-dimer PT 17.6 Seconds (9.4-12.1) H 10/28/17 05:21 Abnormal lab findings: Abnormal lab results WBC 16.3 K/mcL (4.3-11.1) H 10/29/17 04:00 RBC 3.83 M/mcL (4.19-5.50) L 10/29/17 04:00 Hgb 11.1 g/dL (12.9-16.9) L 10/29/17 04:00 Hct 34.5 % (37.5-50.1) L 10/29/17 04:00 Neutrophils # 14.2 K/mcL (1.6-8.9) H 10/29/17 04:00 PT 17.6 Seconds (9.4-12.1) H 10/28/17 05:21 ABG pH 7.30 pH Units (7.32-7.45) L 10/29/17 04:23 ABG pCO2 46 mmHg (35-45) H 10/29/17 04:23 ABG pO2 70 mmHg (85-104) L D 10/29/17 04:23 ABG O2 Saturation 92 % (95-98) L 10/29/17 04:23 ABG Base Excess -4 mEq/L (-2 to 3) L 10/29/17 04:23 Chloride 108 mEq/L (98-107) H 10/29/17 04:00 Glucose 145 mg/dL (70-105) H 10/29/17 04:00 POC Glucose 96 (58-89) H 10/29/17 11:23 Calcium 7.7 mg/dL (8.6-10.3) L 10/29/17 04:00 Direct Bilirubin 0.3 mg/dL (0.0-0.2) H 10/29/17 04:00 Serum Total Protein 5.4 g/dL (6.4-8.9) L 10/29/17 04:00 Albumin 2.7 g/dL (3.5-5.7) L 10/29/17 04:00 Albumin/Globulin Ratio 1.0 (1.1-2.2) L 10/29/17 04:00 - Clinical Findings Intake & Output: Intake & Output 10/28/17 10/29/17 10/29/17 23:59 07:59 15:59 Intake Total 200 / 200 400 / 400 194 / 194 Output Total 250 / 250 290 / 290 185 / 185 Balance -50 / -50 110 / 110 1764 / 1764 Weight 92.4 kg - Attending Attestation I examined this patient and my medical decision-making was reviewed with the Resident Physician. I agree with the documented findings, disposition and treatment plan as described except to the extent set forth below. Patient seen and examined. Labs, radiology, chart personally reviewed. 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 Initially patient failed spontaneous breathing trial due to agitation and I have increased tidal volume then started patient on Precedex for agitation and subsequently patient was successfully extubated area. Patient needs to stay in ICU close monitoring because his condition deteriorated especially with atelectasis and he will need gentle spirometry. Patient had acute respiratory failure after surgery. Cardiovascular: stable GI: Nutrition per dietary and GI prophylaxis per routine. Surgery follow-up Heme: DVT prophylaxis per routine ID: Continue antibiotics and plan to de-escalation. Patient is on broad- spectrum antibiotics. Renal; urine out put and renal funtion reviewed Endorcine: blood glucose is monitored Lines: all lines checked and no evidence of infections Skin: skin care to prevent pressure ulcers per nursing routine care I spent 32 min of Critical Care time with this patient. It involved decision making of high complexity to assess, manipulate, and support vital organ system failure and/or to prevent further life threatening deterioration of the patient' s condition. The time involved in the performance of separately reportable procedures was not counted toward critical care time.
[2017-10-29] MEDS: Pantoprazole 40 MG VIAL IVP SCH (10:01)
[2017-10-29] MEDS ORDERED: 0.9 % Sodium Chloride 1,000 ML IVC ONE (10:13)
[2017-10-29] MEDS: Acetaminophen IV 1,000 MG/100 ML INFUS..BTL IVPB SCH ×3 (10:49→23:38)
--- NOTE | 2017-10-29 12:17 | Cardiology Progress Note ---
Date of Encounter: 10/29/17 Time of Encounter: 11:30 Assessment and Plan (1) S/P laparoscopic cholecystectomy Current Visit: Yes Status: Acute Per cardiology: -S/p mauricio with surgery. -Management per primary service. (2) A-fib Current Visit: Yes Status: Chronic Per cardiology: -Known PAF. -ON sotalol. -ON coumadin at home for anticoagulation. -Denies history of CVA/thromboembolism. Discussed with patient and family agree with previous history. -Currently SR, HR controlled. -On heparin Subcutaneous for DVT proxylaxis. -No need for full bridging (lovenox or heparin drip). Ok to start anticoagulation per surgery team. Will start coumadin pharmacy to dose. -Would recommend subcutaneous heparin until therapeutic with INR goal INR 2-3. -Cardiology will sign off and will follow in otupatient setting. Follow up set. Qualifiers: Atrial fibrillation type: paroxysmal Qualified Code(s): I48.0 - Paroxysmal atrial fibrillation Discussion w patient/family: The assessment and plan as outlined above was discussed with the patient and/or family members who expressed understanding and agreement. All questions were answered. Thank you for involving us in the care of your patient. Please call with any questions. Discussed and reviewed with . Subjective Principal diagnosis: cholelethiasis Interval history: Patient seen in ICU, states he feels ok today. Denies chest pain, palpitations, or shortness of breath. Objective Vital Signs, Last 4 Hours Temp Pulse Resp BP Pulse Ox 10/29/17 12:00 62 18 128/80 94 10/29/17 11:43 97.7 F 10/29/17 11:00 62 16 121/82 98 10/29/17 10:00 60 18 130/70 95 10/29/17 09:00 48 14 95 General: Conversant, No Apparent Distress HEENT: Atraumatic, Normocephaly, Mucus Membranes Moist Neck: No JVD, Normal carotid pulses Cardiac: Reg Rate and Rhythm, Normal S1 and S2, No Murmur Lungs: Other (Patient refused respiratory auscultation due to pain. ) Neuro: Alert and responsive, No focal deficits noted Abdomen: Soft, Non-Tender Skin: No rashes noted on visualized skin Musculoskeletal: No Chest Wall Tenderness Extremities: No Clubbing, No Cyanosis, No Edema, Normal Pulses Results 10/29/17 04:00 10/29/17 04:00 Lab Results Impressions Chest X-Ray 10/28/17 21:22 IMPRESSION: Bibasilar atelectasis and left pleural effusion. Satisfactory position of endotracheal tube. Right IJ line tip in the left innominate vein with no pneumothorax. The tube should be repositioned. D/ / Zion Starr MD / Zion Starr MD Interpreting Provider: Zion Starr MD X-Ray 10/28/17 21:22 IMPRESSION: 1. Normal bowel gas pattern without evidence of obstruction. 2. The orogastric tube tip is located in the gastric body. D/ / 10/28/2017 22:20:19 Erik Mcduffie MD / con Interpreting Provider: Erik Mcduffie MD Chest X-Ray 10/28/17 22:14 IMPRESSION: Stable chest. Stable position of right IJ line with tip in the innominate vein. No pneumothorax. D/ / Zion Starr MD / Zion Starr MD Interpreting Provider: Zion Starr MD Chest X-Ray 10/28/17 22:16 IMPRESSION: Right IJ approach central line terminates left of midline, presumably within the left subclavian vein, however cannot exclude arterial termination. Recommend repositioning with consideration of correlation with blood gas sampling and/or transducing waveform. Critical results were called by Dr. Nixon Concepcion to Dr. Jeannie Casey on 10/28/2017 at 23:04. D/ / 10/28/2017 23:00:21 Nixon Concepcion / con Interpreting Provider: Nixon Concepcion Active Medications Dextrose/Water (Dextrose 50% (Syg)) 25 ml IVP AD PRN PRN Reason: Hypoglycemia Stop: 04/26/18 15:35 Gabapentin (Neurontin) 300 mg PO QAM [facility] Stop: 04/26/18 09:01 Last Admin: 10/29/17 07:21 Dose: 300 mg Gabapentin (Neurontin) 600 mg PO HS [facility] Stop: 04/26/18 21:01 Glucagon (Glucagen) 1 mg IM ONCE PRN PRN Reason: Hypoglycemia Stop: 04/26/18 15:35 Glucose (Gluctose) 15 gm PO ONCE PRN PRN Reason: Hypoglycemia Stop: 04/26/18 15:35 Glucose (Gluctose) 30 gm PO ONCE PRN PRN Reason: Hypoglycemia Stop: 04/26/18 15:35 Guaifenesin (Robitussin/Dm) 5 ml PO Q6HR PRN PRN Reason: Cough Stop: 04/27/18 22:18 Heparin Sodium (Porcine) (Heparin) 5,000 unit SQ Q8HCO [facility] Stop: 04/29/18 22:01 Last Admin: 10/29/17 05:15 Dose: 5,000 unit Sodium Chloride (0.9 % Sodium Chloride) 1,000 mls @ 100 mls/hr IVC .Q10H [facility] Stop: 04/29/18 14:51 Last Admin: 10/29/17 08:40 Dose: 100 mls/hr Dextrose (Dextrose 5%) 1,000 mls @ 100 mls/hr IVC .Q10H PRN PRN Reason: HYPOGLYCEMIA Stop: 04/26/18 15:35 Piperacillin Sod/Tazobactam Sod (Zosyn Premix 3.375 Gm/200 Ml) 3.375 gm in 200 mls @ 50 mls/hr IVPB Q8HR [facility] Stop: 04/26/18 16:01 Last Infusion: 10/29/17 11:02 Dose: Infused Acetaminophen (Ofirmev 1,000 Mg/100 Ml) 1,000 mg in 100 mls @ 400 mls/hr IVPB Q6H [facility] Stop: 10/30/17 04:44 Last Infusion: 10/29/17 11:03 Dose: Infused Insulin Human Lispro (Humalog) 0 units SQ TIDAC KAMI PRN Reason: Protocol Stop: 04/26/18 16:31 Last Admin: 10/29/17 11:40 Dose: Not Given Insulin Human Lispro (Humalog) 0 units SQ HS KAMI PRN Reason: Protocol Stop: 04/26/18 21:01 Levothyroxine Sodium (Synthroid) 53 mcg IVP DAILY KAMI Stop: 04/30/18 09:01 Last Admin: 10/29/17 10:00 Dose: Not Given Metoprolol Tartrate (Lopressor) 5 mg IVP Q6HR PRN PRN Reason: Hypertension Stop: 04/29/18 21:10 Morphine Sulfate (Morphine Sulfate) 4 mg IVP Q2H PRN PRN Reason: Pain Stop: 04/29/18 21:10 Ondansetron HCl (Zofran) 4 mg IVP Q8HR PRN; Protocol PRN Reason: Nausea And Vomiting Stop: 04/26/18 05:31 Pantoprazole Sodium (Protonix) 40 mg IVP DAILY [facility] Stop: 04/30/18 09:01 Last Admin: 10/29/17 10:01 Dose: 40 mg Sotalol HCl (Betapace) 80 mg PO Q12HR KAMI Stop: 04/26/18 06:01 Last Admin: 10/29/17 05:13 Dose: Not Given Tamsulosin HCl (Flomax) 0.4 mg PO HS KAMI PRN Reason: Protocol Stop: 04/26/18 21:01 Warfarin Sodium (Coumadin Perpt) 1 each PO DAILY@1800 PRN PRN Reason: SEE COMMENTS Stop: 04/30/18 18:01 Laboratory Tests 10/29/17 10/29/17 04:00 04:00 Hgb 11.1 L Potassium 4.1 Creatinine 0.97 Magnesium 1.6 - Imaging and Cardiology Chest Xray: report reviewed Echo: report reviewed - EKG Interpretation EKG results cardiology: other (Telemetry reviewed with average HR previous 12 hours noted to be 58, SR. PVCs and PACS noted. Short runs of atrial tachycardia noted.) - VTE Documentation of Mechanical Device: Intermittent pneumatic compression device Consult Discharge Plan - Plan Referrals: Merced Rodriguez MD [Primary Care Provider] -
[2017-10-29] MEDS ORDERED: *HR* Warfarin 10 MG TABLET PO ONE (13:03)
[2017-10-29] MEDS ORDERED: Warfarin perPT PO PRN (18:00)
[2017-10-29] MEDS: *HR* Morphine 2 MG/ML SYRINGE IVP PRN (19:21)
[2017-10-29] MEDS ORDERED: Gabapentin 300 MG CAPSULE PO SCH (21:00)
[2017-10-29] MEDS ORDERED: Insulin LISPRO 300 UNITS/3 ML VIAL SQ SCH (21:00)
[2017-10-30] MEDS: Acetaminophen IV 1,000 MG/100 ML INFUS..BTL IVPB SCH (04:42)
[2017-10-30] MEDS: *HR* Morphine 2 MG/ML SYRINGE IVP PRN (04:55)
[2017-10-30] MEDS: 0.9 % Sodium Chloride 1,000 ML IVC SCH (04:58)
[2017-10-30 05:20] LABS: Basophils % 0.3 %; Eosinophils # 0.2 K/mcL (0.0-0.6); Eosinophils % 2.1 %; Hematocrit 33.8 % (37.5-50.1); Hemoglobin 10.8 g/dL (12.9-16.9); Immature Granulocytes % 0.7 % (0-4); Lymphocytes # 1.2 K/mcL (0.6-4.6); Lymphocytes % 13.5 %; Mean Corpuscular Hemoglobin 28.6 pg (28.0-33.3); Mean Corpuscular Volume 89.4 fL (83.0-100.0); Mean Platelet Volume 9.5 fL (9.4-12.4); Monocytes # 0.8 K/mcL (0.0-1.3); Monocytes % 9.3 %; Neutrophils # 6.6 K/mcL (1.6-8.9); Platelet Count 360 K/mcL (140-400); Red Blood Count 3.78 M/mcL (4.19-5.50); Red Cell Distribution Width 13.4 % (11.5-14.5); Segmented Neutrophils % 74.1 %
[2017-10-30 05:27] LABS: Prothrombin Time 21.5 Seconds (9.4-12.1)
[2017-10-30 05:36] LABS: Alanine Aminotransferase 20 Units/L (7-52); Albumin 2.7 g/dL (3.5-5.7); Alkaline Phosphatase 74 Units/L (34-104); Aspartate Amino Transferase 17 Units/L (13-39); BUN/Creatinine Ratio 15 (6-26); Bilirubin,Direct 0.2 mg/dL (0.0-0.2); Bilirubin,Indirect 0.4 mg/dL (0.0-1.2); Bilirubin,Total 0.6 mg/dL (0.3-1.0); Blood Urea Nitrogen 13 mg/dL (8-23); Calcium 7.6 mg/dL (8.6-10.3); Carbon Dioxide 23 mEq/L (23-29); Chloride 112 mEq/L (98-107); Globulin 2.7 g/dL (2.4-3.5); Glucose 94 mg/dL (70-105); Magnesium 1.6 mg/dL (1.6-2.6); Osmolality,Calculated 290 (280-300); Phosphorous 1.4 mg/dL (2.7-4.5); Potassium 3.4 mEq/L (3.5-5.1); Sodium 140 mEq/L (136-145); Total Protein 5.4 g/dL (6.4-8.9); eGFR For African Americans > 60 (> 60); eGFR For Non-African Americans > 60 (> 60)
--- NOTE | 2017-10-30 06:55 | Pulmonology Progress Note ---
<Jakub Lopez - Last Filed: 10/30/17 09:45> Date of Encounter: 10/30/17 Time of Encounter: 06:55 Assessment and Plan (1) Agitation requiring sedation protocol Current Visit: Yes Status: Resolved Successfully extubated yesterday morning Been sating well on NC and RA this morning AAOx3 Pulmonary/critical care will sign off at this time. Please re-consult if there are any questions or concerns in the future. Thank you for involving us in Mr. Aguilar's care. (2) Symptomatic cholelithiasis Current Visit: Yes Status: Acute Post operative day 2 status post laproscopic converted to open cholecystectomy with primary repair of umbilical hernia Management per surgery team Pain control 80 mL out of PRISCILLA since yesterday Significant increase in urine output since yesterday morning after IVF. Will discontinue at this time (3) Leukocytosis Current Visit: Yes Status: Resolved Likely reactive to cholelithiasis and surgery Resolved 16.3 -> 9.0 Qualifiers: Leukocytosis type: unspecified Qualified Code(s): D72.829 - Elevated white blood cell count, unspecified (4) Chronic atrial fibrillation Current Visit: Yes Status: Acute NSR in 70s this morning Restarted home medications with Sotalol Cardiology was consulted and recommended continuation of Coumadin (5) NICM (nonischemic cardiomyopathy) Current Visit: Yes Status: Chronic Last known ECHO 04/12/17: - EF 55% - Mild left diastolic dysfunction - Mild TR, mild-mod MR - No wall motion abnormalities No evidence of acute CHF exacerbation at this time Will continue medical management at this time (6) T2DM (type 2 diabetes mellitus) Current Visit: Yes Status: Acute Blood sugars are improving today Continue Accu-Cheks TIDAC Coverage with low-dose sliding scale Qualifiers: Diabetes mellitus complication status: without complication Diabetes mellitus alf insulin use: without alf use Qualified Code(s): E11.9 - Type 2 diabetes mellitus without complications (7) Hypothyroidism Current Visit: Yes Status: Chronic Receiving home dose of Synthroid. No changes at this time Qualifiers: Hypothyroidism type: acquired Qualified Code(s): E03.9 - Hypothyroidism, unspecified (8) DVT prophylaxis Current Visit: Yes Status: Acute EPCDs and Heparin 5000 q8hrs Subjective Principal diagnosis: cholelethiasis Interval history: Patient is admitted for symptomatic cholelithiasis status post microscopic converted to open cystectomy Transfers ICU for postoperative application with difficulty in extubation Postop day 2 Patient was successfully extubated yesterday morning He is resting comfortably in chair this morning eating breakfast Denies any chest pain, shortness of breath, palpitations, nausea, vomiting, abdominal pain or GI issues. Objective PUL Vital signs: Last Vital Signs Temp 97.3 F L 10/30/17 04:00 Pulse 68 10/30/17 06:00 Resp 20 10/30/17 06:00 BP 148/88 10/30/17 06:00 Pulse Ox 96 10/30/17 06:00 General appearance: no acute distress Eyes: nonicteric ENT: oropharynx moist Neck: supple Effort: normal Auscultation: bilateral: clear Cardiovascular: regular rate and rhythm Gastrointestinal: normoactive bowel sounds, non-distended Integumentary: normal Extremities: no cyanosis, no edema, no clubbing Musculoskeletal: no deformities normal mental status, non-focal exam mood appropriate, affect normal Results - Laboratory Findings CBC and BMP: 10/30/17 04:50 10/30/17 04:50 ABG ABG pH 7.30 pH Units (7.32-7.45) L 10/29/17 04:23 ABG pCO2 46 mmHg (35-45) H 10/29/17 04:23 ABG pO2 70 mmHg (85-104) L D 10/29/17 04:23 ABG O2 Saturation 92 % (95-98) L 10/29/17 04:23 PT/INR, D-dimer PT 21.5 Seconds (9.4-12.1) H 10/30/17 04:50 Abnormal lab findings: Abnormal lab results RBC 3.78 M/mcL (4.19-5.50) L 10/30/17 04:50 Hgb 10.8 g/dL (12.9-16.9) L 10/30/17 04:50 Hct 33.8 % (37.5-50.1) L 10/30/17 04:50 PT 21.5 Seconds (9.4-12.1) H 10/30/17 04:50 ABG pH 7.30 pH Units (7.32-7.45) L 10/29/17 04:23 ABG pCO2 46 mmHg (35-45) H 10/29/17 04:23 ABG pO2 70 mmHg (85-104) L D 10/29/17 04:23 ABG O2 Saturation 92 % (95-98) L 10/29/17 04:23 ABG Base Excess -4 mEq/L (-2 to 3) L 10/29/17 04:23 Potassium 3.4 mEq/L (3.5-5.1) L 10/30/17 04:50 Chloride 112 mEq/L (98-107) H 10/30/17 04:50 POC Glucose 112 (58-89) H 10/29/17 19:49 Calcium 7.6 mg/dL (8.6-10.3) L 10/30/17 04:50 Phosphorus 1.4 mg/dL (2.7-4.5) L 10/30/17 04:50 Serum Total Protein 5.4 g/dL (6.4-8.9) L 10/30/17 04:50 Albumin 2.7 g/dL (3.5-5.7) L 10/30/17 04:50 Albumin/Globulin Ratio 1.0 (1.1-2.2) L 10/30/17 04:50 - Clinical Findings Intake & Output: Intake & Output 10/29/17 10/29/17 10/30/17 15:59 23:59 07:59 Intake Total 1949 / 1949 1400 / 1400 1300 / 1300 Output Total 185 / 185 590 / 590 340 / 340 Balance 1764 / 1764 810 / 810 960 / 960 Weight 94.1 kg - VTE Documentation of Mechanical Device: Intermittent pneumatic compression device Consult Discharge Plan - Plan Referrals: Merced Rodriguez MD [Primary Care Provider] - <Gemini Maldonado - Last Filed: 10/30/17 11:27> Date of Encounter: 10/30/17 Objective PUL Vital signs: Last Vital Signs Temp 97.9 F 10/30/17 08:00 Pulse 62 10/30/17 10:00 Resp 16 10/30/17 10:00 BP 159/94 10/30/17 10:00 Pulse Ox 91 10/30/17 10:00 Results - Laboratory Findings CBC and BMP: 10/30/17 04:50 10/30/17 04:50 ABG ABG pH 7.30 pH Units (7.32-7.45) L 10/29/17 04:23 ABG pCO2 46 mmHg (35-45) H 10/29/17 04:23 ABG pO2 70 mmHg (85-104) L D 10/29/17 04:23 ABG O2 Saturation 92 % (95-98) L 10/29/17 04:23 PT/INR, D-dimer PT 21.5 Seconds (9.4-12.1) H 10/30/17 04:50 Abnormal lab findings: Abnormal lab results RBC 3.78 M/mcL (4.19-5.50) L 10/30/17 04:50 Hgb 10.8 g/dL (12.9-16.9) L 10/30/17 04:50 Hct 33.8 % (37.5-50.1) L 10/30/17 04:50 PT 21.5 Seconds (9.4-12.1) H 10/30/17 04:50 ABG pH 7.30 pH Units (7.32-7.45) L 10/29/17 04:23 ABG pCO2 46 mmHg (35-45) H 10/29/17 04:23 ABG pO2 70 mmHg (85-104) L D 10/29/17 04:23 ABG O2 Saturation 92 % (95-98) L 10/29/17 04:23 ABG Base Excess -4 mEq/L (-2 to 3) L 10/29/17 04:23 Potassium 3.4 mEq/L (3.5-5.1) L 10/30/17 04:50 Chloride 112 mEq/L (98-107) H 10/30/17 04:50 POC Glucose 93 (58-89) H 10/30/17 11:08 Calcium 7.6 mg/dL (8.6-10.3) L 10/30/17 04:50 Phosphorus 1.4 mg/dL (2.7-4.5) L 10/30/17 04:50 Serum Total Protein 5.4 g/dL (6.4-8.9) L 10/30/17 04:50 Albumin 2.7 g/dL (3.5-5.7) L 10/30/17 04:50 Albumin/Globulin Ratio 1.0 (1.1-2.2) L 10/30/17 04:50 - Clinical Findings Intake & Output: Intake & Output 10/29/17 10/30/17 10/30/17 23:59 07:59 15:59 Intake Total 1400 / 1400 1300 / 1300 Output Total 590 / 590 340 / 340 120 / 120 Balance 810 / 810 960 / 960 -120 / -120 Weight 94.1 kg - Attending Attestation I examined this patient and my medical decision-making was reviewed with the Resident Physician. I agree with the documented findings, disposition and treatment plan as described except to the extent set forth below. Patient seen and examined. Labs, radiology, chart personally reviewed. Agree with resident's history and physical, assessment, plan with following comments: TELEPHONE AD TAKER: Patient follows commands, Pulmonary: Acceptable oxygenation and ventilation. Encouraged incentive spirometry. Cardiovascular: stable and since patient is on liquid to stop IV fluid. GI: Nutrition per dietary and GI prophylaxis per routine Heme: DVT prophylaxis per routine ID: Continue antibiotics and plan to de-escalation Renal; urine out put and renal funtion reviewed Endorcine: blood glucose is monitored Lines: all lines checked and no evidence of infections Skin: skin care to prevent pressure ulcers per nursing routine care Patient is hemodynamically stable from critical care standpoint to be transferred to the floor and thank you for the consultation
[2017-10-30] MEDS: Insulin LISPRO 300 UNITS/3 ML VIAL SQ SCH ×3 (07:26→16:27)
[2017-10-30] MEDS: Gabapentin 300 MG CAPSULE PO SCH ×2 (07:44→10:13)
[2017-10-30] MEDS: Pantoprazole 40 MG VIAL IVP SCH (07:44)
[2017-10-30] MEDS: Piperacillin/Tazobactam 3.375 GM/200 ML BAG IVPB SCH ×3 (07:44→23:44)
--- NOTE | 2017-10-30 09:19 | General Surgery Progress Note ---
<Cecily Fontenot - Last Filed: 10/30/17 10:07> Date of Encounter: 10/30/17 Time of Encounter: 09:18 - Assessment and Plan (1) Symptomatic cholelithiasis Current Visit: Yes Status: Acute Date of procedure: 10/28/17 Pre-op diagnosis: Symptomatic cholelithiasis Post-op diagnosis: other (Necrotic gangrenous acute cholecystitis, umbilical hernia) Procedure: #1Laparoscopic converted to open cholecystectomy; #2 primary repair of umbilical hernia Complications: none immediate Anesthesia: GETA Surgeon: Veronica Elena Was there an state tested nursing assistant present: No Rod Hanger Other: Stu Angulo Estimated blood loss (cc): 200 POD# 2 as above. Complicated by after surgical procedure, patient became combative in PACU and was pulling at line. He was sedated and intubated for safety. He was extubated on 10/29/2017 and his orientation improved throughout the day. He had decreased urine output yesterday which was treated and resolved with fluids; however he appears slightly fluid overlaoded today (scrotal swelling and bibasilar crackles) He has ABS, noted flatus, is tolerating CLD withou n/v and requests "some food. " He states his discomfort is overall tolerable. His PRISCILLA drainage is clearing up and is more serous today. Plan: -Transfer out of ICU to med/surg with tele -Supportive care and discomfort management; add miralax while on narcotics -continue G.I. prophylaxis -aggressive pulmonary toileting; consult RT regarding when he is on med/surg floor Repeat CXR as indicated -out of bed to chair for all meals and ambulate in halls at least TID with PT/OT (when ok with critical care i.e. right femoral line). -IV lasix 40 mg x1 dose now -apply scrotal support -serial abdominal exams. -repeat am labs Ofirmev and scheduled toradol for discomfort management; PRN narcotics for pain not relieved by scheduled meds -Cardiology restarted warfin 10/29/2017; dosing per pharmacy; recommended no bridging needed, but continue SQ heparin until therapeutic INR -Continue IV ATBX (2) Chronic atrial fibrillation Current Visit: Yes Status: Acute He is on his home sotalol and warfarin has been restarted. He will need follow- up with cardiology as outpatient. Cardiology has signed off at this time. (3) Chronic anticoagulation Current Visit: Yes Status: Chronic See plan above. (4) Cough Current Visit: Yes Status: Acute Aggressive pulmonary toileting. Incentive spirometry. Repeat CXR as indicated. (5) NICM (nonischemic cardiomyopathy) Current Visit: Yes Status: Chronic See plan above. (6) Abdominal pain Current Visit: Yes Status: Acute See plan above. Qualifiers: Abdominal location: right upper quadrant Qualified Code(s): R10.11 - Right upper quadrant pain Subjective Patient reports: no new complaints, feels better, still having pain, pain is less, tolerating liquids well, voiding w/o difficulty, flatus, no bowel movement , afebrile Narrative: Mr. Aguilar is sitting upright in chair att bedside and states he feels much better today. H Objective Vital Signs - Last 8 Hours Temp Pulse Resp BP Pulse Ox 10/30/17 08:00 97.9 F 68 18 120/98 92 10/30/17 07:30 74 10/30/17 07:00 74 18 152/84 94 10/30/17 06:00 68 20 148/88 96 10/30/17 05:00 68 20 151/84 94 10/30/17 04:00 97.3 F L 64 18 142/83 98 10/30/17 03:25 75 10/30/17 03:00 75 20 133/76 93 10/30/17 02:00 69 20 125/67 96 Intake and Output 10/29/17 10/30/17 10/30/17 23:59 07:59 15:59 Intake Total 1400 / 1400 1300 / 1300 Output Total 590 / 590 340 / 340 120 / 120 Balance 810 / 810 960 / 960 -120 / -120 Intake: IV Fluids 1400 / 1400 1300 / 1300 0.9 % Sodium Chloride 1,000 ML 1000 / 1000 1000 / 1000 @ 100 mls/hr IVC .Q10H [facility] Rx#: [id number] Ofirmev 1,000 mg/100 ml 1,000 200 / 200 100 / 100 mg In 100 ml @ 400 mls/hr IVPB Q6H [facility] Rx#:[id number] Zosyn Premix 3.375 GM/200 ML 3. 200 / 200 200 / 200 375 gm In 200 ml @ 50 mls/hr IVPB Q8HR [facility] Rx#:[id number] Output: Catheter 550 / 550 300 / 300 100 / 100 Wound Drainage 40 / 40 40 / 40 20 / 20 Right Abdomen 40 / 40 40 / 40 20 / 20 Other: Weight 94.1 kg Blood Glucose* 112 94 Patient Weight 10/30/17 23:59 Weight 94.1 kg - General physical appearance well nourished, no distress, moderate pain (with activty) - Eyes normal ocular movement - ENT normal nares, normal mucosa, atraumatic, normocephalic - Neck Neck exam: trachea midline, no venous distension - Respiratory normal expansion, normal respiratory effort, other (BL basilar crackles; decreased lung sounds) - Cardiovascular Cardiovascular exam: Present: RRR, murmurs, distant heart sounds - Abdomen Abdomen: Present: bowel sounds present, soft, tender (Expected postoperative) Hernia: none - Incision Incision: Present: clean and dry, intact ([place] noted. ) - Integumentary no abnormal pigmentation - Neurologic normal coordination, normal sensation - Musculoskeletal normal posture - Psychiatric oriented to time, oriented to person, oriented to place, speech is normal, memory intact - Labs 10/30/17 04:50 10/30/17 04:50 Diabetes panel 10/30/17 Range/Units 04:50 Sodium 140 (136-145) mEq/L Potassium 3.4 L (3.5-5.1) mEq/L Chloride 112 H (98-107) mEq/L Carbon Dioxide 23 (23-29) mEq/L BUN 13 (8-23) mg/dL Creatinine 0.88 (0.70-1.30) mg/dL Glucose 94 (70-105) mg/dL Calcium 7.6 L (8.6-10.3) mg/dL AST 17 (13-39) Units/L ALT 20 (7-52) Units/L Alkaline Phosphatase 74 (34-104) Units/L Albumin 2.7 L (3.5-5.7) g/dL Calcium panel 10/30/17 Range/Units 04:50 Calcium 7.6 L (8.6-10.3) mg/dL Phosphorus 1.4 L (2.7-4.5) mg/dL Albumin 2.7 L (3.5-5.7) g/dL Pituitary panel 10/30/17 Range/Units 04:50 Sodium 140 (136-145) mEq/L Potassium 3.4 L (3.5-5.1) mEq/L Chloride 112 H (98-107) mEq/L Carbon Dioxide 23 (23-29) mEq/L BUN 13 (8-23) mg/dL Creatinine 0.88 (0.70-1.30) mg/dL Glucose 94 (70-105) mg/dL Calcium 7.6 L (8.6-10.3) mg/dL Adrenal panel 10/30/17 Range/Units 04:50 Sodium 140 (136-145) mEq/L Potassium 3.4 L (3.5-5.1) mEq/L Chloride 112 H (98-107) mEq/L Carbon Dioxide 23 (23-29) mEq/L BUN 13 (8-23) mg/dL Creatinine 0.88 (0.70-1.30) mg/dL Glucose 94 (70-105) mg/dL Calcium 7.6 L (8.6-10.3) mg/dL Total Bilirubin 0.6 (0.3-1.0) mg/dL AST 17 (13-39) Units/L ALT 20 (7-52) Units/L Alkaline Phosphatase 74 (34-104) Units/L Albumin 2.7 L (3.5-5.7) g/dL - VTE Documentation of Mechanical Device: Intermittent pneumatic compression device Consult Discharge Plan - Plan Referrals: Merced Rodriguez MD [Primary Care Provider] - <Veronica Elena - Last Filed: 10/31/17 10:13> Date of Encounter: 10/30/17 - Assessment and Plan (1) A-fib Current Visit: Yes Status: Chronic continue coumadin and sotolal currently in normal rhythm Qualifiers: Atrial fibrillation type: paroxysmal Qualified Code(s): I48.0 - Paroxysmal atrial fibrillation (2) Abdominal pain Current Visit: Yes Status: Acute continue prn pain control Qualifiers: Abdominal location: right upper quadrant Qualified Code(s): R10.11 - Right upper quadrant pain (3) Chronic anticoagulation Current Visit: Yes Status: Chronic on coumadin - awaiting inr return to 2-3 (4) NICM (nonischemic cardiomyopathy) Current Visit: Yes Status: Chronic (5) Symptomatic cholelithiasis Current Visit: Yes Status: Acute (6) Leukocytosis Current Visit: Yes Status: Acute Qualifiers: Leukocytosis type: unspecified Qualified Code(s): D72.829 - Elevated white blood cell count, unspecified (7) Acute gangrenous cholecystitis Current Visit: Yes Status: Resolved pod 2 from open cholecystectomy for gangrenous cholecystitis advance to diabetic diet stop IVF prn pain control OOB to chair continue ABx due to leukocystosis and gangrenous cholecystitis gi/dvt prophylaxis OT/PT, ambulate Subjective Patient reports: feels better, still having pain, pain is less, tolerating liquids well, voiding w/o difficulty, flatus, no bowel movement, afebrile Objective Vital Signs - Last 8 Hours Temp Pulse Resp BP Pulse Ox 10/31/17 08:00 98.3 F 62 18 150/70 95 10/31/17 03:28 97.6 F 69 16 145/85 94 Intake and Output 10/30/17 10/31/17 10/31/17 23:59 07:59 15:59 Intake Total 200 / 200 500 / 500 120 / 120 Output Total 995 / 995 120 / 120 10 / 10 Balance -795 / -795 380 / 380 110 / 110 Intake: IV Fluids 200 / 200 200 / 200 Zosyn Premix 3.375 GM/200 ML 3. 200 / 200 200 / 200 375 gm In 200 ml @ 50 mls/hr IVPB Q8HR [facility] Rx#:[id number] Oral 300 / 300 120 / 120 Output: Urine 975 / 975 100 / 100 0 / 0 Wound Drainage 20 / 20 20 / 20 10 / 10 Right Abdomen 20 / 20 20 / 20 10 / 10 Other: Meal Breakfast Percent of Meal Consumed 5% Stool Size Small Stool Consistency soft Stool Characteristics Normal for Patient Stool Color Brown Weight 94.76 kg Blood Glucose* 110 100 Patient Weight 10/31/17 23:59 Weight 94.76 kg - General physical appearance well developed, well nourished, no distress - Eyes normal ocular movement - ENT normal mucosa, normocephalic - Neck Neck exam: trachea midline - Respiratory normal expansion, normal respiratory effort, other - Cardiovascular Cardiovascular exam: Present: RRR - Abdomen Abdomen: Present: bowel sounds present, soft, tender - Incision Incision: Present: clean and dry, intact - Integumentary no abnormal pigmentation - Neurologic normal coordination - Musculoskeletal normal posture - Psychiatric oriented to time, oriented to person, oriented to place, speech is normal, memory intact - Labs 10/30/17 04:50 10/30/17 04:50 - Attending Attestation I have personally performed a face to face evaluation on this patient. I have reviewed and agree with the care plan. History and Exam by me shows:
[2017-10-30] MEDS ORDERED: Furosemide 40 MG/4 ML VIAL IVP ONE ×2 (09:20→09:29)
[2017-10-30] MEDS ORDERED: Warfarin perPT PO PRN (09:38)
[2017-10-30] MEDS ORDERED: D5% in Water 1,000 ML IVC PRN (09:38)
[2017-10-30] MEDS ORDERED: Dextrose Gel 15 GM/37.5 ML TUBE PO PRN ×2 (09:38)
[2017-10-30] MEDS ORDERED: *HR* Morphine 2 MG/ML SYRINGE IVP PRN (09:38)
[2017-10-30] MEDS ORDERED: *HR* Dextrose 50 % in Water (Syg) 50 ML SYRINGE IVP PRN (09:38)
[2017-10-30] MEDS ORDERED: Ondansetron 4 MG/2 ML VIAL IVP PRN (09:38)
[2017-10-30] MEDS: Ketorolac 15 MG/ML VIAL IVP SCH ×3 (10:51→23:44)
[2017-10-30] MEDS: *HR* Metformin 500 MG TABLET PO SCH (17:10)
[2017-10-30] MEDS ORDERED: *HR* Warfarin 10 MG TABLET PO ONE (18:00)
[2017-10-30] MEDS ORDERED: Insulin LISPRO 300 UNITS/3 ML VIAL SQ SCH (21:00)
[2017-10-30] MEDS ORDERED: Gabapentin 300 MG CAPSULE PO SCH ×2 (21:00)
[2017-10-31] MEDS: Ketorolac 15 MG/ML VIAL IVP SCH ×2 (06:00→11:01)
[2017-10-31 08:24] LABS: INR 2.5; Prothrombin Time 27.7 Seconds (9.4-12.1)
[2017-10-31] MEDS: Insulin LISPRO 300 UNITS/3 ML VIAL SQ SCH (08:25)
[2017-10-31] MEDS: *HR* Metformin 500 MG TABLET PO SCH (08:28)
[2017-10-31] MEDS: Piperacillin/Tazobactam 3.375 GM/200 ML BAG IVPB SCH (08:28)
[2017-10-31] MEDS ORDERED: Gabapentin 300 MG CAPSULE PO SCH (09:00)
[2017-10-31] MEDS ORDERED: Pantoprazole 40 MG VIAL IVP SCH (09:00)
[2017-10-31] MEDS: Gabapentin 300 MG CAPSULE PO SCH (11:01)
--- NOTE | 2017-10-31 11:56 | Discharge Summary ---
Date of Encounter: 10/31/17 Time of Encounter: 11:30 - Discharge Diagnosis (1) Symptomatic cholelithiasis Priority: Primary Status: Resolved (2) Chronic atrial fibrillation Priority: Secondary Status: Chronic (3) Chronic anticoagulation Priority: Secondary Status: Chronic (4) Cough Priority: Secondary Status: Acute (5) NICM (nonischemic cardiomyopathy) Priority: Secondary Status: Chronic (6) Abdominal pain Priority: Primary Status: Resolved Qualifiers: Abdominal location: right upper quadrant Qualified Code(s): R10.11 - Right upper quadrant pain - Discharge Medications Prescriptions: OxyCODONE/APAP 5/325 [Percocet 5/325 MG] 1 each PO Q6HR PRN 7 Days #28 tablet PRN Reason: Pain Ibuprofen [Motrin] 600 mg PO Q8HR PRN #30 tab PRN Reason: Pain Amoxicillin/Clavulanate [Augmentin] 875 mg PO BIDWM #28 tablet Polyethylene Glycol 3350 [MiraLAX] 17 gm PO DAILY #30 powd.pack Home Medications: Gabapentin [Neurontin] 300 mg PO QAM 02/26/16 [History] Gabapentin [Neurontin] 600 mg PO HS 02/26/16 [History] Levothyroxine [Synthroid] 75 mcg PO DAILY 02/26/16 [History] Sotalol [Betapace] 160 mg PO Q12HR 02/26/16 [History] Tamsulosin [Flomax] 0.4 mg PO DAILY 02/26/16 [History] Warfarin [Coumadin] 11 mg PO DAILY 02/26/16 [History] metFORMIN [Glucophage] 500 mg PO BIDWM 02/26/16 [History] Amoxicillin/Clavulanate [Augmentin] 875 mg PO BIDWM #28 tablet 10/31/17 [Rx] Ibuprofen [Motrin] 600 mg PO Q8HR PRN #30 tab 10/31/17 [Rx] OxyCODONE/APAP 5/325 [Percocet 5/325 MG] 1 each PO Q6HR PRN 7 Days #28 tablet [Rx] Polyethylene Glycol 3350 [MiraLAX] 17 gm PO DAILY #30 powd.pack 10/31/17 [Rx] Allergies/Adverse Reactions: 3 Allergy/AdvReac Type Severity Reaction Status Date / Time diazepam AdvReac Nausea Verified 10/24/17 23:43 General Surgery Exam Initial Vital Signs Temp Pulse Resp BP Pulse Ox 97.9 F 111 14 133/86 90 10/25/17 05:16 10/25/17 05:16 10/25/17 05:16 10/25/17 05:16 10/25/17 05:16 - General physical appearance no distress, moderate pain - Eyes normal ocular movement - Neck trachea midline, no venous distension - Respiratory normal expansion, normal respiratory effort, clear to auscultation - Cardiovascular Cardiovascular exam: Present: RRR, murmurs - Abdomen Abdomen general surgery: Present: bowel sounds present, soft, tender (Expected postoperative), wound (PRISCILLA with SS drainage; wicking noted) Hernia: Present: none - Incision Incision: Present: clean and dry, intact (with 2 areas of wicking noted) - Integumentary Integumentary general surgery: Present: warm and dry, no abnormal pigmentation - Neurologic Present: CN 2-12 grossly intact, normal coordination, normal sensation - Musculoskeletal Present: normal posture, other (Generalized deconditioning noted) - Psychiatric Psychiatric general surgery: Present: A&Ox3, appropriate, oriented to person, oriented to place, oriented to time, speech is normal, memory intact Date of admission: 10/25/17 16:37 Primary care physician: Merced Rodriguez MD Consults: 10/25/17 09:03 Consult to Cardiology [CONS] Routine Comment: Consulting Provider: Mina Wise Reason for Consult: Atrial Fibrillation with RVR; cardiac risk stratification Time Notified: 09:04 Call Completed: Yes 10/29/17 07:52 Consult to Critical Care [CONS] Routine Consulting Provider: Pulm Crit Care & Sleep Billie Reason for Consult: VENT/ICU MANAGEMENT Call Completed: Yes 10/29/17 10:08 Consult to Occupational Therapy [CONS] Routine Comment: Evaluate, develop and implement POC Reason for Consult: Mobilization in DC planning Consult to Physical Therapy [CONS] Routine Comment: Evaluate, develop and implement POC Reason for Consult: Mobilization in DC planning Consult to Donkey Ride Operator [CONS] Routine Reason for SW Consult: DC planning 10/29/17 10:11 Consult to Cardiology [CONS] Routine Comment: Consulting Provider: Mina Wise Reason for Consult: call back for a-fib, NICM, and anticoagulation management Call Completed: No 10/30/17 09:34 Consult to Respiratory Therapy [CONS] Routine Reason for Consult: Aggressive pulmonary toileting Call Completed: No Discharging clinician: Veronica Elena (Chaparrita Fontenot) Anticipated date of discharge: 10/31/17 - Patient Status Disposition: Transfer SNF Condition: Fair Functional capacity at discharge: uses cane/walker Overall status at discharge: patient is not back to baseline - Discharge Instructions Instructions: Chris-Javier Drain Care (DC), Open Cholecystectomy (DC) Follow Up With: Merced Rodriguez MD [Primary Care Provider] - Cecily Fontenot CNP [Advanced Practice Nurse] - 11/08/17 8:20 am Additional Instructions: General Surgical Discharge Instructions 1. No pushing, pulling, or lifting greater than 15 lbs for 4 weeks. 2. You may shower beginning today, but no tub baths, soaking, or swimming for 2 weeks. 3. You may resume driving when you are off narcotics and are safe to react in a car. 4. Take ibuprofen every 8 hours for discomfort. If this does not relieve discomfort, you may take the as needed Percocet. Take narcotics as directed. Do not take more narcotics then directed and do not share your narcotics with any other person. Do not drink alcohol while on narcotics. 5. Take stool softeners (Colace) or a water based laxative (Miralax) while taking narcotics. You may hold for loose stools. 6. Report any fevers greater than 100.5F, increase abdominal discomfort, drainage that looks like pus, increased redness or pain at the surgical site, or any vomiting. 7. Report any pain in the calves, shortness of breath, or rapid heartbeat. 8. Follow-up in the office as directed. 9. If you were prescribed antibiotics, do not stop them without talking to your provider. PRISCILLA Drain Instructions: 1. Record drainage on the drainage record sheet provided to you. Bring this record to your follow-up appointment. 2. Empty and record PRISCILLA drainage as above. Otherwise keep the PRISCILLA bulb decompressed for suction. 3. Do not let the PRISCILLA drain dangle from your body. When you shower, suspend the drain on a lanyard or other necklace. When you're up moving around, keep the PRISCILLA drain safety panned to your shirt or pants. 4. See wound care instructions below for dressing instructions. Wound Care Instructions: Surgical incision: daily wound care - remove dressing, remove packing, shower with antibacterial soap. Pat dry. Repack the previously packed areas with 1/4 inch plain gauze (for wicking purposes). Cover with a dry dressing. Tape to secure. Change outer dressing or reinforce as needed. PRISCILLA Site: daily care - remove dressing. Shower and wash with antibacterial soap. Pat dry. Cover with a drain sponge. Tape to secure. INR/warfarin dosing per rehab facility until seen by cardiology Follow-up with Cecily Fontenot CNP 11/08/2017 at 0820 Follow-up with cardiology as directed Follow-up with PCP in 2 weeks after d/c from rehab - Diet and Activity Activity: as per physical therapy Diet: advance to your usual diet, diabetic diet - Hospital Course Hospital course: Mr. Aguilar is a 72 year old male who presented on 10/25/2017 for complaints of right upper quadrant pain. CT showed no acute abdominal process however his white blood cell count was 13.5 any had persistent epigastric pain. Right upper quadrant ultrasound was obtained which revealed several stones. He was also noted to be on warfarin therapy for chronic atrial fibrillation and his INR was 2.6. He was treated with supportive measurements including IV fluids, IV antibiotics, and discomfort management while his INR corrected. He was taken to the operating room on 10/28/2017 where he underwent a laparoscopic converted to open cholecystectomy and primary pair of an umbilical hernia. The case was complicated by necrotic and gangrenous acute cholecystitis. Estimated blood loss at the time was 200 ML's. His hospital course was further complicated by his acute delirium in PACU. He was reintubated and admitted to the ICU for saftey. He was extubated on 10/29/2015 and has progressed appropriately since. IV antibiotics (zosyn) were continued throughout his hospital course in his final pathology notes gangrenous cholecystitis and cholelithiasis. PT and OT work on [facility] for her DC planning and recommendations. He is noted to have generalized deconditioning and weakness. He has recommended [facility] placement for rehab. He is passing flatus and having bowel movements, tolerating his diabetic diet without nausea or vomiting, states discomfort is controlled on the current regimen, vital signs are stable, and his white blood cell count has normalized. We will begin [facility] planning [facility] with a follow-up in the office in one week with Cecily Fontenot. - Time Spent with Patient Total time spent providing and/or coordinating discharge services: Greater than 30 minutes Labs on day of discharge: Labs from last 24 hours 10/31/17 10/31/17 10/30/17 08:19 06:20 21:00 PT 27.7 H INR 2.5 POC Glucose 100 H 110 H 10/30/17 15:52 PT INR POC Glucose 96 H - Impressions ITS Impressions Gallbladder Ultrasound 10/25/17 12:00 IMPRESSION: Gallstones and possible sludge, without evidence of acute cholecystitis. D/ / Solomon Rodriguez MD / Solomon Rodriguez MD Interpreting Provider: Solomon Rodriguez MD Chest X-Ray 10/25/17 14:51 IMPRESSION: 1. Mildly enlarged cardiac silhouette with prominence of the pulmonary vasculature. 2. Small left pleural effusion. D/ / Denys Byers MD / Denys Byers MD Interpreting Provider: Denys Byers MD Chest X-Ray 10/28/17 21:22 IMPRESSION: Bibasilar atelectasis and left pleural effusion. Satisfactory position of endotracheal tube. Right IJ line tip in the left innominate vein with no pneumothorax. The tube should be repositioned. D/ / Zion Starr MD / Zion Starr MD Interpreting Provider: Zion Starr MD X-Ray 10/28/17 21:22 IMPRESSION: 1. Normal bowel gas pattern without evidence of obstruction. 2. The orogastric tube tip is located in the gastric body. D/ / 10/28/2017 22:20:19 Erik Mcduffie MD / [facility] Interpreting Provider: Erik Mcduffie MD Chest X-Ray 10/28/17 22:14 IMPRESSION: Stable chest. Stable position of right IJ line with tip in the innominate vein. No pneumothorax. D/ / Zion Starr MD / Zion Starr MD Interpreting Provider: Zion Starr MD Chest X-Ray 10/28/17 22:16 IMPRESSION: Right IJ approach central line terminates left of midline, presumably within the left subclavian vein, however cannot exclude arterial termination. Recommend repositioning with consideration of correlation with blood gas sampling and/or transducing waveform. Critical results were called by Dr. Nixon Concepcion to Dr. Jeannie Casey on 10/28/2017 at 23:04. D/ / 10/28/2017 23:00:21 Nixon Concepcion / con Interpreting Provider: Nixon Concepcion
[2017-10-31 12:15] VITALS: BP 166/73
--- NOTE | 2017-10-31 13:26 | Physician Discharge Referral ---
[facility] Referral Info Transfer To: [facility] Provider in Charge: Dr. Veronica Elena Provider in Charge after Transfer: Other (PMR ) Institutional Level of Care: Skilled - Diagnosis (1) Symptomatic cholelithiasis Priority: Primary Status: Resolved (2) Chronic atrial fibrillation Priority: Secondary Status: Chronic (3) Chronic anticoagulation Priority: Secondary Status: Chronic (4) Cough Priority: Secondary Status: Acute (5) NICM (nonischemic cardiomyopathy) Priority: Secondary Status: Chronic (6) Abdominal pain Priority: Primary Status: Resolved Expected Duration of Placement: Less than 30 days Prognosis: Good Aware of Diagnosis: Patient Aware of Prognosis: Patient - Transfer Medications Prescriptions: OxyCODONE/APAP 5/325 [Percocet 5/325 MG] 1 each PO Q6HR PRN 7 Days #28 tablet PRN Reason: Pain Ibuprofen [Motrin] 600 mg PO Q8HR PRN #30 tab PRN Reason: Pain Amoxicillin/Clavulanate [Augmentin] 875 mg PO BIDWM #28 tablet Polyethylene Glycol 3350 [MiraLAX] 17 gm PO DAILY #30 powd.pack Home Medications: Gabapentin [Neurontin] 300 mg PO QAM 02/26/16 [History] Gabapentin [Neurontin] 600 mg PO HS 02/26/16 [History] Levothyroxine [Synthroid] 75 mcg PO DAILY 02/26/16 [History] Sotalol [Betapace] 160 mg PO Q12HR 02/26/16 [History] Tamsulosin [Flomax] 0.4 mg PO DAILY 02/26/16 [History] Warfarin [Coumadin] 11 mg PO DAILY 02/26/16 [History] metFORMIN [Glucophage] 500 mg PO BIDWM 02/26/16 [History] Amoxicillin/Clavulanate [Augmentin] 875 mg PO BIDWM #28 tablet 10/31/17 [Rx] Ibuprofen [Motrin] 600 mg PO Q8HR PRN #30 tab 10/31/17 [Rx] OxyCODONE/APAP 5/325 [Percocet 5/325 MG] 1 each PO Q6HR PRN 7 Days #28 tablet [Rx] Polyethylene Glycol 3350 [MiraLAX] 17 gm PO DAILY #30 powd.pack 10/31/17 [Rx] Allergies/Adverse Reactions: 3 Allergy/AdvReac Type Severity Reaction Status Date / Time diazepam AdvReac Nausea Verified 10/24/17 23:43 - Respiratory Orders Oxygen / L per min (Per PMR MD manrique and recommendations) Smoking Cessation: Smoking cessation has been advised. For more information, call the [place] Tobacco Quit Line at 8-496-GCUL-NOW. - Ancillary Orders May use pressure relief devices daily prn, May go on CASSIE w/family/respon republican w /meds at nurse discretion PRN - Advance Directives Living Will: No Power of Ham Rolling Machine Operator: No Code Status: Full Code - Mobility Orders Ambulate (per PT/OT recommendations) - Rehabiliation Orders Rehab Potential: Good Rehab Orders: Evaluation for Physical Therapy, Evaluation for Occupational Therapy - Treatments Skin tear care topically daily PRN per policy, May check for fecal impaction rectally daily PRN List/Other: General Surgical Discharge Instructions 1. No pushing, pulling, or lifting greater than 15 lbs for 4 weeks. 2. You may shower beginning today, but no tub baths, soaking, or swimming for 2 weeks. 3. You may resume driving when you are off narcotics and are safe to react in a car. 4. Take ibuprofen every 8 hours for discomfort. If this does not relieve discomfort, you may take the as needed Percocet. Take narcotics as directed. Do not take more narcotics then directed and do not share your narcotics with any other person. Do not drink alcohol while on narcotics. 5. Take stool softeners (Colace) or a water based laxative (Miralax) while taking narcotics. You may hold for loose stools. 6. Report any fevers greater than 100.5F, increase abdominal discomfort, drainage that looks like pus, increased redness or pain at the surgical site, or any vomiting. 7. Report any pain in the calves, shortness of breath, or rapid heartbeat. 8. Follow-up in the office as directed. 9. If you were prescribed antibiotics, do not stop them without talking to your provider. PRISCILLA Drain Instructions: 1. Record drainage on the drainage record sheet provided to you. Bring this record to your follow-up appointment. 2. Empty and record PRISCILLA drainage as above. Otherwise keep the PRISCILLA bulb decompressed for suction. 3. Do not let the PRISCILLA drain dangle from your body. When you shower, suspend the drain on a lanyard or other necklace. When you're up moving around, keep the PRISCILLA drain safety panned to your shirt or pants. 4. See wound care instructions below for dressing instructions. Wound Care Instructions: Surgical incision: daily wound care - remove dressing, remove packing, shower with antibacterial soap. Pat dry. Repack the previously packed areas with 1/4 inch plain gauze (for wicking purposes). Cover with a dry dressing. Tape to secure. Change outer dressing or reinforce as needed. PRISCILLA Site: daily care - remove dressing. Shower and wash with antibacterial soap. Pat dry. Cover with a drain sponge. Tape to secure. Follow-up with Cecily Fontenot CNP 11/08/2017 at 0820 Follow-up with cardiology as directed Follow-up with PCP in 2 weeks after d/c from rehab - Diet Orders Mechanical Soft (Diabetic) CERTIFICATION: I certify that the transfer of the above named patient to an Extended Care Facility is necessary for the continuing treatment of the diagnosis listed. The above information is true and accurate reflection of patient's current condition. Confidential - Redisclosure prohibited without a patient's written consent.
[2017-10-31] MEDS ORDERED: *HR* Warfarin 5 MG TABLET PO ONE (18:00)
== END 2017-10-31 16:10 | DRG 415 ==
LOC: 3ANU → ICNU 10-28 21:02 → 3ANU 10-30 17:40
PROVIDERS: ADMIT Surgery; ATTEND Surgery

== ENCOUNTER 2018-08-12 07:49 | Inpatient (IN) ==
[2018-08-12] MEDS ORDERED: Naloxone 0.4 MG/ML INJ IVP PRN (10:49)
--- NOTE | 2018-08-12 10:54 | Electrophysiology H & P ---
<SergioDaly J - Last Filed: 08/12/18 13:53> Date of Encounter: 08/12/18 Time of Encounter: 10:53 Assessment and Plan (1) Persistent atrial fibrillation Status: Chronic Per EP: -Known persistent a.fib, previously on sotalol and rhythmol. Most recently rhythmol had to be stopped due to CAD. -Patient admitted for tikosyn initiation. -ECG today (baseline) with a.fib, HR 89. QT 362ms, QTc 409ms. -On coumadin for anticoagulation. INRs have been therapeutic for >30 days. 07/09/18 2.7, 07/16 2.9, 07/23 2.5, 07/30 3, 08/06 3.1. -INR therapuetic today. -Of note, Mg 1.4, will replace. -Patient educated on need to be inpatient for at least 72 hours. -Creatinine clearance 84ml/min. -On cardizem and metoprolol, per , ok to continue. -Tikosyn per Dr.John Xie, 500mg Q12 hours. First dose 2100 tonight. -ECG 2 hours after each tikosyn dose. Cardiology review of ECG prior to next tikosyn given, RN notified. -Continuous telemetry, close monitoring. -IV Mg given. -Discussed and reviewed with patient and regarding plan, state understanding. (2) Chronic anticoagulation Status: Chronic Per EP: -On coumadin for anticoagulation. -INR therpeutic. -Will order pharmacy to dose while inpatient. (3) CAD (coronary artery disease) Status: Chronic Per EP: -Known CAD s/p [facility] 04/2018 with PCI to [facility]. -ON plavix, statin, BB, asa. -Denies chest pain. -Continue current regimen. Qualifiers: Coronary Disease-Associated Artery/Lesion type: [place] artery [place] vs. transplanted heart: [place] heart Associated angina: without angina Qualified Code(s): I25.10 - Atherosclerotic heart disease of [place] coronary artery without angina pectoris (4) T2DM (type 2 diabetes mellitus) Status: Chronic Per EP: -Known DM. -Continue home regimen. Qualifiers: Diabetes mellitus care home insulin use: without care home use Diabetes mellitus complication status: without complication Qualified Code(s): E11.9 - Type 2 diabetes mellitus without complications History of Present Illness Chief complaint: Atrial fibrillation HPI: Mr. Aguilar is a 73 year old male with a relevant past medical history of Persistent AF, cardiomyopathy, DM II, hypothyroidism, tachybrady syndrome, CAD s/p PCI who presented to [facility] as a direct admission for tikosyn initiation. Patient is on coumadin for anticoagulation. Patient denies bleeding or blood loss. Patient denies complaints today. Denies chest pain, shortness of breath. States when his HR is elevated with a.fib, he feels lightheaded. Denies current lightheadedness. Past Med Surg Social Fam HX - Past Medical History Attestation: Yes The following information was validated with the patient. Source: patient, old records reviewed, obtained from family Medical history: atrial fibrillation, cardiomyopathy, coronary artery disease, diabetes, fibromyalgia, valvular heart disease Additional medical history: Mild leaky valve syndrome Psychiatric history: no psych history - Past Surgical History Surgical History: cholecystectomy, other Additional surgical history: T&A - Social History Smoking Status: Former smoker Smokeless Tobacco Status: No Alcohol use: none, occasionally Drug use: none - Family History Brother Hx Family Cancer: Yes (prostate) Father Living Status: Hx Family Respiratory Disorders: Yes (Emphyzema) Mother Living Status: Hx Family Cancer: Yes (Lung cancer) Sister Living Status: Cause of : Pancreatic cancer with mets Medications and Allergies RX: Gabapentin [Neurontin] 300 mg PO QAM 02/26/16 [History] RX: Gabapentin [Neurontin] 600 mg PO HS 02/26/16 [History] RX: Levothyroxine [Synthroid] 75 mcg PO DAILY 02/26/16 [History] RX: Tamsulosin [Flomax] 0.4 mg PO DAILY 02/26/16 [History] RX: Warfarin [Coumadin] 10 mg PO SUTUTHSA 02/26/16 [History] RX: Diltiazem HCl [Diltiazem ER] 120 mg PO DAILY 04/22/18 [History] RX: Aspirin 81 mg PO DAILY #30 tab.chew 04/23/18 [Rx] RX: Atorvastatin [Lipitor] 80 mg PO HS #30 tablet 04/23/18 [Rx] RX: Clopidogrel [Plavix] 75 mg PO DAILY #30 tablet 04/23/18 [Rx] RX: Metoprolol [Lopressor] 25 mg PO BID #30 tablet 04/23/18 [Rx] RX: Nitroglycerin 0.4 mg SL Q5MIN PRN #10 tab.subl 04/23/18 [Rx] RX: metFORMIN [Glucophage] 500 mg PO BIDWM #0 04/23/18 [Rx] RX: Dofetilide [Tikosyn] 0.5 mg PO Q12H capsule 08/17/18 [Rx] RX: Warfarin [Coumadin] 8 mg PO MOWEFR #30 tablet 08/17/18 [Rx] Allergy/AdvReac Type Severity Reaction Status Date / Time diazepam AdvReac Nausea Verified 10/24/17 23:43 All Systems Review: The remainder of the systems were reviewed and are negative - Cardiovascular Cardiovascular: as per HPI, lightheadedness Physical Examination Vital Signs Temperature 97.7 F 08/12/18 10:57 Pulse Rate 87 08/12/18 10:57 Respiratory Rate 18 08/12/18 10:57 Blood Pressure 126/87 08/12/18 10:57 O2 Sat by Pulse Oximetry 96 08/12/18 10:57 Temperature 97.7 F 08/12/18 10:57 Pulse Rate 87 08/12/18 10:57 Respiratory Rate 18 08/12/18 10:57 Blood Pressure 126/87 08/12/18 10:57 O2 Sat by Pulse Oximetry 96 08/12/18 10:57 General: Conversant, No Apparent Distress HEENT: Atraumatic, Normocephaly, Mucus Membranes Moist Neck: No JVD, Normal carotid pulses Cardiac: Normal S1 and S2, No Murmur, Other (Irregularly irregular) Lungs: Normal Breath Sounds, No Wheeze, Rales, Rhonchi Neuro: Alert and responsive, No focal deficits noted Abdomen: Soft, Non-Tender Skin: No rashes noted on visualized skin Musculoskeletal: No Chest Wall Tenderness Extremities: No Clubbing, No Cyanosis, No Edema, Normal Pulses Results 08/12/18 12:23 08/12/18 12:23 - Imaging and Cardiology Echo: report reviewed Cardiac cath: report reviewed - EKG Interpretation EKG results cardiology: personally reviewed (ECG today with alma, HR 89. QT 362/QTc 409ms.) - VTE Reasons for not Prescribing Prophylaxis: Not indicated-Anticoagulated or INR therapeutic <Sanjay Xie - Last Filed: 08/18/18 11:11> Date of Encounter: 08/18/18 - Attending Attestation I have personally performed a face to face evaluation on this patient. I have reviewed and agree with the care plan. History and Exam by me shows: Recurrent AF despite antiarrythmic. Here for tikosyn loading. History of Present Illness HPI: Mr. Aguilar is a 73 year old male All Systems Review: The remainder of the systems were reviewed and are negative Results 08/15/18 03:06 08/15/18 03:06
[2018-08-12 12:47] LABS: Basophils # 0.1 K/mcL (0.0-0.2); Basophils % 1.2 %; Eosinophils # 0.3 K/mcL (0.0-0.6); Eosinophils % 3.4 %; Hematocrit 40.6 % (37.5-50.1); Hemoglobin 13.1 g/dL (12.9-16.9); Immature Granulocytes % 0.3 % (0-4); Lymphocytes # 1.6 K/mcL (0.6-4.6); Lymphocytes % 21.1 %; Mean Corpuscular HGB Conc 32.3 g/dL (31.6-35.5); Mean Corpuscular Hemoglobin 28.5 pg (28.0-33.3); Mean Corpuscular Volume 88.3 fL (83.0-100.0); Mean Platelet Volume 10.1 fL (9.4-12.4); Monocytes # 0.6 K/mcL (0.0-1.3); Monocytes % 7.6 %; Neutrophils # 5.2 K/mcL (1.6-8.9); Platelet Count 300 K/mcL (140-400); Red Cell Distribution Width 13.7 % (11.5-14.5); Segmented Neutrophils % 66.4 %
[2018-08-12 12:52] LABS: INR 2.6; Prothrombin Time 29.2 Seconds (9.4-12.1)
[2018-08-12 13:03] LABS: BUN/Creatinine Ratio 18 (6-26); Blood Urea Nitrogen 18 mg/dL (8-23); Calcium 9.1 mg/dL (8.6-10.3); Carbon Dioxide 25 mEq/L (23-29); Chloride 107 mEq/L (98-107); Glucose 93 mg/dL (70-105); Osmolality,Calculated 288 (280-300); Potassium 4.6 mEq/L (3.5-5.1); Sodium 138 mEq/L (136-145); eGFR For Non-African Americans > 60 (> 60)
[2018-08-12] MEDS ORDERED: Diltiazem CD (24hr) 120 MG CAPSULE PO ONE (14:45)
[2018-08-12] MEDS ORDERED: *HR* Metformin 500 MG TABLET PO ONE (17:00)
[2018-08-12] MEDS ORDERED: Warfarin perPT PO PRN ×2 (18:00)
[2018-08-12] MEDS ORDERED: *HR* Warfarin 10 MG TABLET PO ONE (18:00)
[2018-08-12] MEDS ORDERED: Gabapentin 300 MG CAPSULE PO ONE (21:00)
[2018-08-13 04:12] LABS: Basophils # 0.1 K/mcL (0.0-0.2); Basophils % 0.6 %; Eosinophils # 0.3 K/mcL (0.0-0.6); Hematocrit 40.6 % (37.5-50.1); Hemoglobin 13.3 g/dL (12.9-16.9); Immature Granulocytes % 0.2 % (0-4); Lymphocytes # 1.6 K/mcL (0.6-4.6); Lymphocytes % 18.6 %; Mean Corpuscular HGB Conc 32.8 g/dL (31.6-35.5); Mean Corpuscular Hemoglobin 28.9 pg (28.0-33.3); Mean Corpuscular Volume 88.1 fL (83.0-100.0); Mean Platelet Volume 10.1 fL (9.4-12.4); Monocytes # 0.6 K/mcL (0.0-1.3); Monocytes % 6.7 %; Neutrophils # 6.1 K/mcL (1.6-8.9); Platelet Count 311 K/mcL (140-400); Red Blood Count 4.61 M/mcL (4.19-5.50); Red Cell Distribution Width 13.6 % (11.5-14.5); Segmented Neutrophils % 70.9 %
[2018-08-13 04:18] LABS: INR 2.9; Prothrombin Time 33.2 Seconds (9.4-12.1)
[2018-08-13 04:27] LABS: BUN/Creatinine Ratio 17 (6-26); Blood Urea Nitrogen 16 mg/dL (8-23); Calcium 8.8 mg/dL (8.6-10.3); Carbon Dioxide 25 mEq/L (23-29); Chloride 105 mEq/L (98-107); Glucose 104 mg/dL (70-105); Osmolality,Calculated 289 (280-300); Sodium 139 mEq/L (136-145); eGFR For Non-African Americans > 60 (> 60)
[2018-08-13] MEDS ORDERED: Nitroglycerin 0.4 MG TAB.SUBL SL PRN (08:17)
--- NOTE | 2018-08-13 09:06 | Electrophysiology ProgressNote ---
Date of Encounter: 08/13/18 Time of Encounter: 08:30 Assessment and Plan (1) Persistent atrial fibrillation Current Visit: Yes Status: Chronic Per EP: -Known persistent a.fib, previously on sotalol and rhythmol. Most recently rhythmol had to be stopped due to CAD. -Patient admitted for tikosyn initiation. -ECG 08/12/18 1158 (baseline) with a.fib, HR 89. QT 362ms, QTc 409ms. -ECG s/p 1 dose 08/02/18 2321 with a.fib, HR 73. QT 384, QTc 409ms. -On coumadin for anticoagulation. INRs have been therapeutic for >30 days. 07/09/18 2.7, 07/16 2.9, 07/23 2.5, 07/30 3, 08/06 3.1. -INR therapuetic today, 2.9. -Patient educated on need to be inpatient for at least 72 hours. -Creatinine clearance 84ml/min. -On cardizem and metoprolol, per brittany Louis to continue. -Tikosyn per Dr.John Xie, ECGs reviewed with brittany Louis to continue tikosyn. -ECG 2 hours after each tikosyn dose. Cardiology review of ECG prior to next tikosyn given, RN notified. -Continuous telemetry, close monitoring. -Discussed and reviewed with patient and regarding plan, state understanding. (2) Chronic anticoagulation Current Visit: No Status: Chronic Per EP: -On coumadin for anticoagulation. -INR therpeutic. -Continue coumadin (3) CAD (coronary artery disease) Current Visit: No Status: Chronic Per EP: -Known CAD s/p [facility] 04/2018 with PCI to LAD. -ON plavix, statin, BB, asa. -Denies chest pain. -Continue current regimen. Qualifiers: Coronary Disease-Associated Artery/Lesion type: [place] artery [place] vs. transplanted heart: [place] heart Associated angina: without angina Qualified Code(s): I25.10 - Atherosclerotic heart disease of [place] coronary artery without angina pectoris (4) T2DM (type 2 diabetes mellitus) Current Visit: No Status: Chronic Per EP: -Known DM. -Continue home regimen. Qualifiers: Diabetes mellitus care home insulin use: without care home use Diabetes mellitus complication status: without complication Qualified Code(s): E11.9 - Type 2 diabetes mellitus without complications Discussion w patient/family: The assessment and plan as outlined above was discussed with the patient and/or family members who expressed understanding and agreement. All questions were answered. Thank you for involving us in the care of your patient. Please call with any questions. Discussed and reviewed with Dr.John Xie. Subjective Principal diagnosis: a.fib, tikosyn initiation Interval history: Patient denies complaints. States he slept well last night. Objective Vital Signs, Last 4 Hours Temp Pulse Resp BP Pulse Ox 08/13/18 07:30 97.7 F 97 16 128/81 95 General: Conversant, No Apparent Distress HEENT: Atraumatic, Normocephaly, Mucus Membranes Moist Neck: No JVD, Normal carotid pulses Cardiac: Normal S1 and S2, No Murmur, Other (Irregularly irregular) Lungs: Normal Breath Sounds, No Wheeze, Rales, Rhonchi Neuro: Alert and responsive, No focal deficits noted Abdomen: Soft, Non-Tender Skin: No rashes noted on visualized skin Musculoskeletal: No Chest Wall Tenderness Extremities: No Clubbing, No Cyanosis, No Edema, Normal Pulses Results 08/13/18 03:09 08/13/18 03:09 Lab Results Active Medications Aspirin (Aspirin) 81 mg PO DAILY [facility] Stop: 02/12/19 09:01 Atorvastatin Calcium (Lipitor) 80 mg PO HS [facility] Stop: 02/12/19 21:01 Clopidogrel Bisulfate (Plavix) 75 mg PO DAILY [facility] Stop: 02/12/19 09:01 Diltiazem HCl (Cardizem Cd) 120 mg PO DAILY [facility] Stop: 02/12/19 09:01 Dofetilide (Tikosyn) 0.5 mg PO Q12H [facility] Stop: 02/11/19 21:01 Last Admin: 08/13/18 08:45 Dose: 0.5 mg Gabapentin (Neurontin) 300 mg PO QAM [facility] Stop: 02/12/19 09:01 Gabapentin (Neurontin) 600 mg PO HS [facility] Stop: 02/12/19 21:01 Levothyroxine Sodium (Synthroid) 75 mcg PO 0630 [facility] Stop: 02/12/19 09:01 Metformin HCl (Glucophage) 500 mg PO BIDWM [facility]; Protocol Stop: 02/12/19 17:01 Metoprolol Tartrate (Lopressor) 25 mg PO BID [facility] Stop: 02/12/19 09:01 Naloxone HCl (Narcan) 0.4 mg IVP Q2MIN PRN PRN Reason: SEE COMMENTS Stop: 02/11/19 10:50 Nitroglycerin (Nitroglycerin) 0.4 mg SL Q5MIN PRN PRN Reason: Chest Pain Stop: 02/12/19 08:18 Tamsulosin HCl (Flomax) 0.4 mg PO DAILY [facility]; Protocol Stop: 02/12/19 09:01 Warfarin Sodium (Coumadin) 7.5 mg PO MOWEFR [facility] Stop: 02/12/19 08:31 Warfarin Sodium (Coumadin) 10 mg PO SUTUTHSA [facility] Stop: 02/13/19 08:18 Laboratory Tests 08/13/18 08/13/18 08/13/18 03:09 03:09 03:09 Hgb 13.3 INR 2.9 Creatinine 0.95 - Imaging and Cardiology Chest Xray: report reviewed Stress Test: report reviewed Echo: report reviewed Cardiac cath: report reviewed - EKG Interpretation EKG results cardiology: personally reviewed, other (Telemetry reviewed with average HR previous 12 hours noted to be 87, a.fib. PVCs, couplets noted.) - VTE Reasons for not Prescribing Prophylaxis: Not indicated-Anticoagulated or INR therapeutic Consult Discharge Plan - Plan Referrals: Merced Rodriguez MD [Primary Care Provider] -
[2018-08-13] MEDS: Gabapentin 300 MG CAPSULE PO SCH ×2 (09:55→20:02)
[2018-08-13] MEDS: Diltiazem CD (24hr) 120 MG CAPSULE PO SCH (09:55)
[2018-08-13] MEDS: Aspirin 81 MG TAB.CHEW PO SCH (09:55)
[2018-08-13] MEDS: *HR* Metformin 500 MG TABLET PO SCH (17:47)
[2018-08-13] MEDS ORDERED: *HR* Warfarin 7.5 MG TABLET PO SCH (18:00)
[2018-08-14 05:05] LABS: Basophils # 0.1 K/mcL (0.0-0.2); Basophils % 0.7 %; Eosinophils # 0.3 K/mcL (0.0-0.6); Eosinophils % 3.8 %; Hematocrit 40.6 % (37.5-50.1); Hemoglobin 13.5 g/dL (12.9-16.9); Immature Granulocytes % 0.3 % (0-4); Lymphocytes # 1.5 K/mcL (0.6-4.6); Lymphocytes % 19.4 %; Mean Corpuscular HGB Conc 33.3 g/dL (31.6-35.5); Mean Corpuscular Volume 87.1 fL (83.0-100.0); Mean Platelet Volume 10.2 fL (9.4-12.4); Monocytes # 0.6 K/mcL (0.0-1.3); Monocytes % 7.9 %; Neutrophils # 5.2 K/mcL (1.6-8.9); Platelet Count 299 K/mcL (140-400); Red Blood Count 4.66 M/mcL (4.19-5.50); Red Cell Distribution Width 13.8 % (11.5-14.5); Segmented Neutrophils % 67.9 %
[2018-08-14 05:15] LABS: INR 1.7; Prothrombin Time 18.9 Seconds (9.4-12.1)
[2018-08-14 05:22] LABS: BUN/Creatinine Ratio 19 (6-26); Blood Urea Nitrogen 17 mg/dL (8-23); Calcium 9.2 mg/dL (8.6-10.3); Carbon Dioxide 22 mEq/L (23-29); Chloride 107 mEq/L (98-107); Glucose 100 mg/dL (70-105); Osmolality,Calculated 290 (280-300); Sodium 139 mEq/L (136-145); eGFR For Non-African Americans > 60 (> 60)
[2018-08-14] MEDS: *HR* Metformin 500 MG TABLET PO SCH ×2 (09:06→17:56)
[2018-08-14] MEDS: Aspirin 81 MG TAB.CHEW PO SCH (09:06)
[2018-08-14] MEDS: Diltiazem CD (24hr) 120 MG CAPSULE PO SCH (09:06)
[2018-08-14] MEDS: Gabapentin 300 MG CAPSULE PO SCH ×2 (09:07→21:55)
--- NOTE | 2018-08-14 12:10 | Electrophysiology ProgressNote ---
Date of Encounter: 08/14/18 Time of Encounter: 08:30 Assessment and Plan (1) Persistent atrial fibrillation Current Visit: Yes Status: Chronic Per EP: -Known persistent a.fib, previously on sotalol and rhythmol. Most recently rhythmol had to be stopped due to CAD. -Patient admitted for tikosyn initiation, on 500mg Q12 hours. -ECG 08/12/18 1158 (baseline) with a.fib, HR 89. QT 362ms, QTc 409ms. -ECG s/p 1 dose 08/12/18 2321 with a.fib, HR 73. QT 384, QTc 409ms. -ECG s/p 2 doses 08/13/18 1148 with a.fib, HR 79. QT 382, QTc 417ms. -ECG s/p 3 doses 08/13/18 2318 with a.fib, HR 81. QT 416, QTc 453ms. -ECG s/p 4 doses 08/14/18 1112 with a.fib, HR 64. QT 443, QTc 452ms. -On coumadin for anticoagulation. INRs had been therapeutic for >30 days. 2.7, 07/16 2.9, 07/23 2.5, 07/30 3, 08/06 3.1, however today INR now 1.7. -Patient educated on need to be inpatient for at least 72 hours. -Creatinine clearance 84ml/min. -On cardizem and metoprolol, per brittany Louis to continue. -Tikosyn per Dr.John Xie, ECGs reviewed with brittany Louis to continue tikosyn. -ECG 2 hours after each tikosyn dose. Cardiology review of ECG prior to next tikosyn given, RN notified. -Continuous telemetry, close monitoring. -Now with subtherapeutic INR, will start lovenox today. -Will make NPO after midinight for possible TEJ/DCCV in am. (2) Chronic anticoagulation Current Visit: No Status: Chronic Per EP: -On coumadin for anticoagulation. -INR subtherpeutic today. -as above, will start lovenox today. -Will increase home coumadin regimen. -Per patient's request, message sent to PCP, Dr.Jennifer Rodriguez, regarding INR, coumadin regimen. PCP monitors INR. (3) CAD (coronary artery disease) Current Visit: No Status: Chronic Per EP: -Known CAD s/p [facility] 04/2018 with PCI to LAD. -ON plavix, statin, BB, asa. -Denies chest pain. -Continue current regimen. Qualifiers: Coronary Disease-Associated Artery/Lesion type: [place] artery [place] vs. transplanted heart: [place] heart Associated angina: without angina Qualified Code(s): I25.10 - Atherosclerotic heart disease of [place] coronary artery without angina pectoris (4) T2DM (type 2 diabetes mellitus) Current Visit: No Status: Chronic Per EP: -Known DM. -Continue home regimen. Qualifiers: Diabetes mellitus termite treater insulin use: without termite treater use Diabetes mellitus complication status: without complication Qualified Code(s): E11.9 - Type 2 diabetes mellitus without complications Discussion w patient/family: The assessment and plan as outlined above was discussed with the patient and/or family members who expressed understanding and agreement. All questions were answered. Thank you for involving us in the care of your patient. Please call with any questions. Discussed and reviewed with Dr.John Xie. Subjective Principal diagnosis: a.fib, tikosyn initiation Interval history: Patient denies complaints. States he has felt any side effects of new medication. Objective Vital Signs, Last 4 Hours Temp Pulse Resp BP Pulse Ox 08/14/18 11:27 98.0 F 83 17 119/76 95 General: Conversant, No Apparent Distress HEENT: Atraumatic, Normocephaly, Mucus Membranes Moist Neck: No JVD, Normal carotid pulses Cardiac: Normal S1 and S2, No Murmur, Other (Irregularly irregular ) Lungs: Normal Breath Sounds, No Wheeze, Rales, Rhonchi Neuro: Alert and responsive, No focal deficits noted Abdomen: Soft, Non-Tender Skin: No rashes noted on visualized skin Musculoskeletal: No Chest Wall Tenderness Extremities: No Clubbing, No Cyanosis, No Edema, Normal Pulses Results 08/14/18 03:38 08/14/18 03:38 Lab Results Active Medications Aspirin (Aspirin) 81 mg PO DAILY [facility] Stop: 02/12/19 09:01 Last Admin: 08/14/18 09:06 Dose: 81 mg Atorvastatin Calcium (Lipitor) 80 mg PO HS [facility] Stop: 02/12/19 21:01 Last Admin: 08/13/18 20:02 Dose: 80 mg Clopidogrel Bisulfate (Plavix) 75 mg PO DAILY [facility] Stop: 02/12/19 09:01 Last Admin: 08/14/18 09:06 Dose: 75 mg Diltiazem HCl (Cardizem Cd) 120 mg PO DAILY [facility] Stop: 02/12/19 09:01 Last Admin: 08/14/18 09:06 Dose: 120 mg Dofetilide (Tikosyn) 0.5 mg PO Q12H [facility] Stop: 02/11/19 21:01 Last Admin: 08/14/18 09:12 Dose: 0.5 mg Enoxaparin Sodium (Lovenox) 90 mg 1 mg/kg (90 mg) SQ Q12HR [facility]; Protocol Stop: 02/13/19 10:26 Gabapentin (Neurontin) 300 mg PO QAM [facility] Stop: 02/12/19 09:01 Last Admin: 08/14/18 09:07 Dose: 300 mg Gabapentin (Neurontin) 600 mg PO HS [facility] Stop: 02/12/19 21:01 Last Admin: 08/13/18 20:02 Dose: 600 mg Levothyroxine Sodium (Synthroid) 75 mcg PO 0630 [facility] Stop: 02/12/19 09:01 Last Admin: 08/14/18 05:24 Dose: 75 mcg Metformin HCl (Glucophage) 500 mg PO BIDWM [facility]; Protocol Stop: 02/12/19 17:01 Last Admin: 08/14/18 09:06 Dose: 500 mg Metoprolol Tartrate (Lopressor) 25 mg PO BID [facility] Stop: 02/12/19 09:01 Last Admin: 08/14/18 09:06 Dose: 25 mg Naloxone HCl (Narcan) 0.4 mg IVP Q2MIN PRN PRN Reason: SEE COMMENTS Stop: 02/11/19 10:50 Nitroglycerin (Nitroglycerin) 0.4 mg SL Q5MIN PRN PRN Reason: Chest Pain Stop: 02/12/19 08:18 Tamsulosin HCl (Flomax) 0.4 mg PO DAILY [facility]; Protocol Stop: 02/12/19 09:01 Last Admin: 08/14/18 09:06 Dose: 0.4 mg Warfarin Sodium (Coumadin) 10 mg PO SuTuThSa@1800 [facility] Stop: 02/13/19 18:01 Warfarin Sodium (Coumadin) 8 mg PO MoWeFr@1800 [facility] Stop: 02/14/19 18:01 Laboratory Tests 08/14/18 08/14/18 08/14/18 03:38 03:38 03:38 Hgb 13.5 INR 1.7 Creatinine 0.91 - Imaging and Cardiology Stress Test: report reviewed Echo: report reviewed Cardiac cath: report reviewed - EKG Interpretation EKG results cardiology: other (Telemetry reviewed with average HR previous 12 hours noted to be 80, a.fib. PVCs, couplets noted.) - VTE Reasons for not Prescribing Prophylaxis: Not indicated-Anticoagulated or INR therapeutic Consult Discharge Plan - Plan Referrals: Merced Rodriguez MD [Primary Care Provider] -
[2018-08-14] MEDS: *HR* Enoxaparin 100 MG/ML SYRINGE SQ SCH ×2 (12:30→21:56)
[2018-08-14] MEDS ORDERED: *HR* Warfarin 10 MG TABLET PO SCH (18:00)
--- NOTE | 2018-08-14 20:56 | Electrocardiograph Report ---
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
--- NOTE | 2018-08-14 20:58 | Electrocardiograph Report ---
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
--- NOTE | 2018-08-14 21:15 | Electrocardiograph Report ---
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
--- NOTE | 2018-08-14 21:21 | Electrocardiograph Report ---
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
--- NOTE | 2018-08-14 21:27 | Electrocardiograph Report ---
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
[2018-08-15] MEDS: *HR* Enoxaparin 100 MG/ML SYRINGE SQ SCH ×3 (00:24→17:19)
[2018-08-15 04:42] LABS: Basophils # 0.1 K/mcL (0.0-0.2); Basophils % 0.9 %; Eosinophils # 0.3 K/mcL (0.0-0.6); Eosinophils % 2.9 %; Hematocrit 41.8 % (37.5-50.1); Hemoglobin 13.8 g/dL (12.9-16.9); Immature Granulocytes % 0.2 % (0-4); Lymphocytes # 1.9 K/mcL (0.6-4.6); Lymphocytes % 21.1 %; Mean Corpuscular Hemoglobin 28.8 pg (28.0-33.3); Mean Corpuscular Volume 87.3 fL (83.0-100.0); Mean Platelet Volume 10.3 fL (9.4-12.4); Monocytes # 0.8 K/mcL (0.0-1.3); Monocytes % 8.6 %; Platelet Count 315 K/mcL (140-400); Red Blood Count 4.79 M/mcL (4.19-5.50); Red Cell Distribution Width 13.8 % (11.5-14.5); Segmented Neutrophils % 66.3 %
[2018-08-15 04:53] LABS: INR 1.7; Prothrombin Time 19.4 Seconds (9.4-12.1)
[2018-08-15 05:01] LABS: BUN/Creatinine Ratio 20 (6-26); Blood Urea Nitrogen 18 mg/dL (8-23); Calcium 9.3 mg/dL (8.6-10.3); Carbon Dioxide 25 mEq/L (23-29); Chloride 106 mEq/L (98-107); Glucose 107 mg/dL (70-105); Osmolality,Calculated 290 (280-300); Potassium 3.7 mEq/L (3.5-5.1); Sodium 139 mEq/L (136-145); eGFR For Non-African Americans > 60 (> 60)
[2018-08-15] MEDS: Gabapentin 300 MG CAPSULE PO SCH ×2 (09:22→20:04)
[2018-08-15] MEDS: *HR* Metformin 500 MG TABLET PO SCH ×2 (09:23→17:19)
[2018-08-15] MEDS: Aspirin 81 MG TAB.CHEW PO SCH (09:23)
[2018-08-15] MEDS: Diltiazem CD (24hr) 120 MG CAPSULE PO SCH (09:23)
--- NOTE | 2018-08-15 09:43 | Event Note ---
Date of Encounter: 08/15/18 Time of Encounter: 08:30 - Cardiology Event Note ECG 08/15/18 0014 with a.fib, HR 78. QT 403ms, QTc 436ms. ECG reviewed with brittany Rust to continue tikosyn. RN notified. Telemetry reviewed, remains in a.fib. Plan for TEJ/DCCV today. Risks versus benefits of TEJ/DCCV explained to patient, who states understanding and agreeable to proceed. INR remains subtherapeutic today at 1.7, coumadin has been increased and is on therapeutic lovenox. Will repeat ECG around 1100 today. Further recommendations pending TEJ/DCCV and repeat ECG.
[2018-08-15] MEDS ORDERED: *HR* FentaNYL (PF) 250 MCG/5 ML VIAL ONE (10:50)
[2018-08-15] MEDS ORDERED: *HR* Midazolam HCl 5 MG/5 ML VIAL IVP ONE (10:50)
--- NOTE | 2018-08-15 13:45 | Event Note ---
Date of Encounter: 08/15/18 Time of Encounter: 13:41 - Cardiology Event Note Patient is s/p TEJ and successful DCCV to SR. ECG post DCCV with SR, HR 60. QT 410ms, QTc 411ms. ECG reviewed with Dr.John Xie, ok to continue tikosyn. Of note, currently on cardizem CD 120mg and metorpolol 25mg, per Dr.John Xie, continue. HRs currently 60s. INR 1.7 today, on therapeutic lovenox. Of note, if INR not therapeutic tomorrow, will need to be discharged on lovenox. Patient currently asleep in room. Once patient is fully awake and gag reflex has returned, ok to resume cardiac, diabetic diet. Will repeat ECG 2 hours after tonights dose of tikosyn.
[2018-08-15] MEDS ORDERED: *HR* Warfarin 4 MG TABLET PO SCH (18:00)
--- NOTE | 2018-08-15 19:55 | Electrocardiograph Report ---
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
--- NOTE | 2018-08-15 20:03 | Electrocardiograph Report ---
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
[2018-08-16] MEDS: *HR* Enoxaparin 100 MG/ML SYRINGE SQ SCH ×2 (05:24→17:29)
[2018-08-16 05:42] LABS: INR 1.7; Prothrombin Time 19.4 Seconds (9.4-12.1)
[2018-08-16] MEDS: Aspirin 81 MG TAB.CHEW PO SCH (10:09)
[2018-08-16] MEDS: Gabapentin 300 MG CAPSULE PO SCH ×2 (10:09→20:28)
[2018-08-16] MEDS: *HR* Metformin 500 MG TABLET PO SCH ×2 (10:09→17:29)
[2018-08-16] MEDS: Diltiazem CD (24hr) 120 MG CAPSULE PO SCH (10:09)
--- NOTE | 2018-08-16 14:00 | Electrophysiology ProgressNote ---
Addendum entered and electronically signed by Guillermo Euceda MD 08/16/18 15:02: I have personally performed a face to face evaluation on this patient. I have reviewed and agree with the care plan as documented by the HORSE WRANGLER. History and Exam by me shows: Patients with history of A. fib and CAD on aspirin, Plavix, on Coumadin,. Received TEJ cardioversion yesterday and is on dofetilide to maintain sinus rhythm. However INR is subtherapeutic and patient is on subcut Lovenox until INR is therapeutic. He has no hemodynamically significant valvular disease on echocardiogram. I think he can potentially benefit from DOAC and Plavix dual therapy. He wants to think about it and discuss with this primary doctor and project consultant before making the switch. Thanks, Guillermo Euceda MD Original Note: Date of Encounter: 08/16/18 Time of Encounter: 13:58 Assessment and Plan (1) Persistent atrial fibrillation Current Visit: Yes Status: Chronic Per EP: Known persistent a.fib, previously on sotalol and rhythmol. Most recently rhythmol had to be stopped due to CAD. Patient admitted for tikosyn initiation 08/12, on 0.5mg Q12 hours. Creatinine clearance 84ml/min. On cardizem and metoprolol, per Dr.Keller ok to continue. Baseline ECG 08/12/18 1158 A.fib, HR 89. QT 362ms, QTc 409ms. Highest QT/QTC noted was s/p 4 doses 08/14/18 1112 a.fib, HR 64. QT 443, QTc 452ms. S/P successful TEJ guided DCCV yesterday to SR. Maintaining SR. ECGs BID continue to show stable QTc. Most recent 08/15/18 2246 Sinus rhythm, rate 65, QT/QTc 400/411ms. Continue ECG after each Tikosyn dose while inpt. Has been here >72 hours s/p initiation. On coumadin for anticoagulation. INRs had been therapeutic for >30 days prior to admission, but on 08/14 inpt INR dropped to 1.7. INR needs to be therapeutic 1 month s/p DCCV for CVA prevention and needs bridged during this timeframe when subtherapeutic. On therapeutic Lovenox for bridging. Pt made aware that he could be d/c'd home today on Lovenox bridging until INR therapeutic. He declines. He has a fear of needles. Dr. Ecueda also offered switching to NOAC, which pt declines. Keep inpt for Lovenox bridging until INR is therapeutic 2-3. Consult pharmacy to aid in Coumadin dosing/management. Home dose was increased yesterday from alternating 10/7.5mg to alternating 10/8mg. (2) CAD (coronary artery disease) Current Visit: No Status: Chronic Per EP: Known CAD s/p [facility] 04/2018 with PCI to LAD. On plavix, statin, BB, asa. Denies chest pain. Can consider stopping ASA once INR is therapeutic since he has been on triple therapy >1 month. Qualifiers: Coronary Disease-Associated Artery/Lesion type: [place] artery [place] vs. transplanted heart: [place] heart Associated angina: without angina Qualified Code(s): I25.10 - Atherosclerotic heart disease of [place] coronary artery without angina pectoris Discussion w patient/family: The assessment and plan as outlined above was discussed with the patient and/or family members who expressed understanding and agreement. All questions were answered. Thank you for involving us in the care of your patient. Please call with any questions. I will discuss all the above with Dr. Euceda and make changes as necessary. Subjective Principal diagnosis: a.fib, tikosyn initiation Interval history: Denies acute complaints this AM. INR 1.7 today. Maintaining SR s/p successful TEJ/DCCV yesterday. Objective Vital Signs, Last 4 Hours Temp Pulse Resp BP Pulse Ox 08/16/18 12:00 97.9 F 60 18 132/76 95 Vital Signs Temp Pulse Resp BP Pulse Ox 08/16/18 12:00 97.9 F 60 18 132/76 95 08/16/18 09:45 96 08/16/18 07:52 98.0 F 69 18 114/68 96 08/16/18 03:11 98.8 F 71 16 135/79 94 08/15/18 22:42 98.8 F 67 16 121/78 95 08/15/18 18:45 97.9 F 64 16 126/69 96 08/15/18 15:02 97.8 F 66 17 111/65 95 Intake and Output 08/15/18 08/16/18 08/16/18 23:59 07:59 15:59 Intake Total 400 / 400 120 / 120 Balance 400 / 400 120 / 120 Intake: Oral 400 / 400 120 / 120 Other: Meal Lunch Percent of Meal Consumed 70% # Voids 1 Weight 88.8 kg Blood Glucose* 94 88 112 Patient Weight 08/16/18 23:59 Weight 88.8 kg General: Conversant, No Apparent Distress HEENT: Atraumatic, Normocephaly, Mucus Membranes Moist Neck: No JVD, Normal carotid pulses Cardiac: Reg Rate and Rhythm, Normal S1 and S2, No Murmur Lungs: Normal Breath Sounds, No Wheeze, Rales, Rhonchi Neuro: Alert and responsive, No focal deficits noted Abdomen: Soft, Non-Tender Skin: No rashes noted on visualized skin Musculoskeletal: No Chest Wall Tenderness Extremities: No Clubbing, No Cyanosis, No Edema, Normal Pulses Results 08/15/18 03:06 08/15/18 03:06 Lab Results 08/16/18 05:16 INR 1.7 Impressions Transesophageal w/Cardioversion 08/15/18 08:44 Impressions: LVEF 50-55%. Normal LV size and function. Right ventricle was normal in size and systolic function. Moderately dilated left atrium. LA appendage is normal in appearance. No thrombus. Mild mitral regurgitation. Mild tricuspid regurgitation. No pulmonary hypertension identified. Successful synchronized cardioversion using 250 Joules. No neurological deficits afterthe procedure. Left Ventricular Wall Motion: Transesophageal Echo Findings All wall segments showed normal motion. Medication Given: Time Medication Dose Units Route 11:12 Versed 1 11:12 Fentanyl 25 11:24 Versed 1 11:24 Fentanyl 25 Findings: Study Quality * Technically adequate exam. ECG Findings * Atrial fibrillation. Left Ventricle * LVEF 50-55%. * Normal LV size and function. Right Ventricle * Right ventricle was normal in size and systolic function. Left Atrium * Moderately dilated left atrium. * LA appendage is normal in appearance. No thrombus. Right Atrium * Mildly dilated right atrium. Aortic Valve * The aortic valve is tricuspid. * Normal structure and function. * Trace/trivial aortic regurgitation. * No aortic stenosis. Mitral Valve * Normal structure. * Mild mitral regurgitation. * No mitral stenosis. Tricuspid Valve * Normal structure. * Mild tricuspid regurgitation. * No pulmonary hypertension identified. Pulmonic Valve * Normal structure and function. * No pulmonic regurgitation. Aorta * The aortic root is not dilated. Pericardium * No pericardial effusion. Pulmonary Artery * Normal pulmonary artery. Procedure Summary: After explaining the risks, benefits, and alternatives of the procedure to the patient in detail and answering all questions to satisfaction, an informed consent was obtained in writing. The patient was NPO for the six hours prior to the procedure. The patient denied dysphagia, odynophagia, and loose teeth. The patient was monitored with periodic automated blood pressures and continuous pulse oximetry and telemetry. Continuous oxygen was administered by IA. The patient was placed in the full upright position and the posterior oropharynx was anesthetized as above and complete suppression of the gag reflex was obtained. The patient was then placed in the left lateral decubitus position, the neck was flexed, and a bite block was placed in the patient's mouth. IV sedation was administered. Once adequate sedation was achieved, a well-lubricated anteflexed multipoint intraesophageal echocardiographic probe was inserted into the midline posterior oropharynx. Gentle pressure was applied as the patient swallowed and the esophagus was intubated without difficulty. The scope was advanced to the mid esophagus without encountering resistance. Images were obtained from the mid and upper esophagus. Images from the gastric globe were obtained. The scope was then rotated approximately 180 degrees and withdrawn, visualizing the length of the aorta. The scope was then slowly withdrawn as the patient was continually suctioned. The patient tolerated the procedure well. After ensuring adequate sedation had been achieved, cardioversion in the approach was successful using 250 Joules. No neurological deficits after the procedure. Updated by Elmer Arrington DO, FACDavid, HIPOLITO, TAYO on 08/15/2018 4:22:55 PM electronically signed on 08/15/2018 4:31:16 PM with status of Final Wall Motion [place]rell: 1=Normal, 2=Hypokinesis, 3=Akinesis, 4=Dyskinesis, 5=Aneurysmal, 6=Hyperkinetic, X=Not Visualized (Blank)=Missing Wall MotionIndex TEJ Total of all scored junior 17 Index Divided by ---- = 1 Total number of junior scored 17 Active Medications Aspirin (Aspirin) 81 mg PO DAILY [facility] Stop: 02/12/19 09:01 Last Admin: 08/16/18 10:09 Dose: 81 mg Atorvastatin Calcium (Lipitor) 80 mg PO HS [facility] Stop: 02/12/19 21:01 Last Admin: 08/15/18 20:01 Dose: 80 mg Clopidogrel Bisulfate (Plavix) 75 mg PO DAILY [facility] Stop: 02/12/19 09:01 Last Admin: 08/16/18 10:09 Dose: 75 mg Diltiazem HCl (Cardizem Cd) 120 mg PO DAILY [facility] Stop: 02/12/19 09:01 Last Admin: 08/16/18 10:09 Dose: 120 mg Dofetilide (Tikosyn) 0.5 mg PO Q12H [facility] Stop: 02/11/19 21:01 Last Admin: 08/16/18 10:09 Dose: 0.5 mg Enoxaparin Sodium (Lovenox) 90 mg 1 mg/kg (90 mg) SQ Q12HR [facility]; Protocol Stop: 02/13/19 22:01 Last Admin: 08/16/18 05:24 Dose: 90 mg Gabapentin (Neurontin) 300 mg PO QAM [facility] Stop: 02/12/19 09:01 Last Admin: 08/16/18 10:09 Dose: 300 mg Gabapentin (Neurontin) 600 mg PO HS [facility] Stop: 02/12/19 21:01 Last Admin: 08/15/18 20:04 Dose: 600 mg Levothyroxine Sodium (Synthroid) 75 mcg PO 0630 [facility] Stop: 02/12/19 09:01 Last Admin: 08/16/18 05:24 Dose: 75 mcg Metformin HCl (Glucophage) 500 mg PO BIDWM [facility]; Protocol Stop: 02/12/19 17:01 Last Admin: 08/16/18 10:09 Dose: 500 mg Metoprolol Tartrate (Lopressor) 25 mg PO BID [facility] Stop: 02/12/19 09:01 Last Admin: 08/16/18 10:09 Dose: 25 mg Naloxone HCl (Narcan) 0.4 mg IVP Q2MIN PRN PRN Reason: SEE COMMENTS Stop: 02/11/19 10:50 Nitroglycerin (Nitroglycerin) 0.4 mg SL Q5MIN PRN PRN Reason: Chest Pain Stop: 02/12/19 08:18 Tamsulosin HCl (Flomax) 0.4 mg PO DAILY [facility]; Protocol Stop: 02/12/19 09:01 Last Admin: 08/16/18 10:09 Dose: 0.4 mg Warfarin Sodium (Coumadin) 10 mg PO [email or web address] [facility] Stop: 02/13/19 18:01 Last Admin: 08/14/18 17:56 Dose: 10 mg Warfarin Sodium (Coumadin) 8 mg PO [email or web address] [facility] Stop: 02/14/19 18:01 Last Admin: 08/15/18 17:18 Dose: 8 mg - Imaging and Cardiology Echo: report reviewed - EKG Interpretation EKG results cardiology: other (12 hr tele AVG HR 63, SR) - VTE Reasons for not Prescribing Prophylaxis: Not indicated-Anticoagulated or INR the rapeutic Consult Discharge Plan - Plan Referrals: Merced Rodriguez MD [Primary Care Provider] -
[2018-08-16] MEDS ORDERED: Warfarin perPT PO SCH (18:00)
[2018-08-16] MEDS ORDERED: *HR* Warfarin 10 MG TABLET PO ONE (18:00)
[2018-08-17 03:22] LABS: Prothrombin Time 22.6 Seconds (9.4-12.1)
[2018-08-17] MEDS: *HR* Enoxaparin 100 MG/ML SYRINGE SQ SCH (06:03)
[2018-08-17] MEDS: Diltiazem CD (24hr) 120 MG CAPSULE PO SCH (08:11)
[2018-08-17] MEDS: Gabapentin 300 MG CAPSULE PO SCH (08:11)
[2018-08-17] MEDS: Aspirin 81 MG TAB.CHEW PO SCH (08:12)
[2018-08-17] MEDS: *HR* Metformin 500 MG TABLET PO SCH (08:12)
--- NOTE | 2018-08-17 10:56 | Discharge Summary ---
Orders not resulted at time of discharge: Pending orders 08/16/18 11:00 ECG 12 lead ECG [ECG] Routine 08/16/18 22:20 EKG [ECG 12 lead ECG] [ECG] Routine 08/18/18 04:00 PT/INR [Prothrombin Time INR] [COAG] AM 0400 08/19/18 04:00 PT/INR [Prothrombin Time INR] [COAG] AM 0400 Date of Encounter: 08/17/18 Time of Encounter: 09:00 - Discharge Diagnosis (1) Persistent atrial fibrillation Priority: Primary Status: Chronic (2) CAD (coronary artery disease) Priority: Secondary Status: Chronic Qualifiers: Coronary Disease-Associated Artery/Lesion type: [place] artery [place] vs. transplanted heart: [place] heart Associated angina: without angina Qualified Code(s): I25.10 - Atherosclerotic heart disease of [place] coronary artery without angina pectoris - Hospital Course Hospital course: Mr. Aguilar is a 73 year old male who was admitted for Tikosyn initiation for symptomatic persistent atrial fibrillation. Of note, previously on sotalol and rhythmol. Most recently rhythmol had to be stopped due to CAD. Has been monitored while on Tikosyn for >72 hours; underwent successful DCCV on 08/15/18 and has been monitoring for >12 hours. ECG has remained stable after Tikosyn, ECG today shows QTc 402 ms. Mr. Aguilar is being prepped for discharge to home today in stable condition, instructions provided on new medications. He will continue Coumadin (INR 2.0) today, and follow up with PCP who monitors INR, recommend INR goal 2-3; of note, INR needs to be therapeutic for 1 month s/p DCCV for CVA prevention and needs to be bridged if INR falls below 2.0 during this timeframe, patient advised. All questions and concerns were addressed prior to discharge, he is being prepped for discharge to home in stable condition. Rx provided by Dr. Xie (hard copy) given to patient for Tikosyn. He is aware of triple therapy (asa, plavix, coumadin); consider discontinuation of asa as has been >1 months since PCI, he will discuss with Dr. Sanjay Xie at follow-up. The patient was discussed and reviewed with Dr. Euceda who agrees with plan as stated above. - Time Spent with Patient Total time spent providing and/or coordinating discharge services: Less than 30 minutes Specific discharge activities: No restrictions - Discharge Medications Prescriptions: Warfarin [Coumadin] 8 mg PO MOWEFR #30 tablet Home Medications: Gabapentin [Neurontin] 300 mg PO QAM 02/26/16 [History] Gabapentin [Neurontin] 600 mg PO HS 02/26/16 [History] Levothyroxine [Synthroid] 75 mcg PO DAILY 02/26/16 [History] Tamsulosin [Flomax] 0.4 mg PO DAILY 02/26/16 [History] Warfarin [Coumadin] 10 mg PO SUTUTHSA 02/26/16 [History] Diltiazem HCl [Diltiazem ER] 120 mg PO DAILY 04/22/18 [History] Aspirin 81 mg PO DAILY #30 tab.chew 04/23/18 [Rx] Atorvastatin [Lipitor] 80 mg PO HS #30 tablet 04/23/18 [Rx] Clopidogrel [Plavix] 75 mg PO DAILY #30 tablet 04/23/18 [Rx] Metoprolol [Lopressor] 25 mg PO BID #30 tablet 04/23/18 [Rx] Nitroglycerin 0.4 mg SL Q5MIN PRN #10 tab.subl 04/23/18 [Rx] metFORMIN [Glucophage] 500 mg PO BIDWM #0 04/23/18 [Rx] Dofetilide [Tikosyn] 0.5 mg PO Q12H capsule 08/17/18 [Rx] Warfarin [Coumadin] 8 mg PO MOWEFR #30 tablet 08/17/18 [Rx] Allergies/Adverse Reactions: Allergy/AdvReac Type Severity Reaction Status Date / Time diazepam AdvReac Nausea Verified 10/24/17 23:43 Date of admission: 08/12/18 10:43 Primary care physician: Merced Rodriguez MD Discharging clinician: Kenzie Viveros Anticipated date of discharge: 08/17/18 Physical Examination Vital Signs, Last 4 Hours Temp Pulse Resp BP Pulse Ox 08/17/18 08:15 92 08/17/18 07:35 98.0 F 69 18 113/69 92 General: Conversant, No Apparent Distress HEENT: Atraumatic, Normocephaly, Mucus Membranes Moist Neck: No JVD, Normal carotid pulses Cardiac: Reg Rate and Rhythm, Normal S1 and S2, No Murmur Lungs: Normal Breath Sounds, No Wheeze, Rales, Rhonchi Neuro: Alert and responsive, No focal deficits noted Abdomen: Soft, Non-Tender Skin: No rashes noted on visualized skin Musculoskeletal: No Chest Wall Tenderness Extremities: No Clubbing, No Cyanosis, No Edema, Normal Pulses - Patient Status Disposition: Home, Self-Care Condition: Good Functional capacity at discharge: independent ambulation Overall status at discharge: patient is back to baseline - Discharge Instructions Follow Up With: Merced Rodriguez MD [Primary Care Provider] - Sanjay Xie MD [Partnered Physician] - (Office will call with appt date and time) - Diet and Activity Activity: resume usual activities as tolerated Diet: low fat, low cholesterol, low salt diet - VTE Reasons for not Prescribing Prophylaxis: Not indicated-Anticoagulated or INR therapeutic
[2018-08-17 12:01] VITALS: BP 127/74
[2018-08-17] MEDS ORDERED: *HR* Warfarin 5 MG TABLET PO ONE (18:00)
--- NOTE | 2018-08-18 14:10 | Electrocardiograph Report ---
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
--- NOTE | 2018-08-18 14:58 | Electrocardiograph Report ---
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
--- NOTE | 2018-08-18 15:22 | Electrocardiograph Report ---
[address] [place] [address] Test Date: 2018-08-15 Pat Name: Abdulaziz Aguilar Department: 113 Room: 3B14 Gender: Strategy Lead: : 1945 Requested By: Daly Hill Order Number: [id number] Reading MD: Flory Meade Measurements Intervals [place] Rate: 65 P: -37 [place]: 160 QRS: 8 QRSD: 81 T: 16 QT: 400 QTc: 411 Interpretive Statements SINUS RHYTHM LOW QRS VOLTAGE IN PRECORDIAL LEADS SEPTAL MYOCARDIAL INFARCTION, OF INDETERMINATE AGE Electronically Signed On 08-18-2018 15:20:33 EST by Flory Meade
== END 2018-08-17 12:43 | disposition home or self-care (01) | DRG 310 ==
LOC: 3BNU 10:43
PROVIDERS: ADMIT Internal Medicine Clinical Cardiac Electrophysiology; ATTEND Internal Medicine Clinical Cardiac Electrophysiology